=== PATIENT | male | born 1955 | race Caucasian/White ===

== ENCOUNTER 2016-05-20 12:12 | Observation (INO) ==
[2016-05-20] MEDS ORDERED: 0.9 % Sodium Chloride 1,000 ML IVC ONE (12:34)
[2016-05-20] MEDS ORDERED: Ondansetron 4 MG/2 ML VIAL IVP ONE (12:34)
[2016-05-20] MEDS ORDERED: Aspirin 325 MG TABLET PO ONE (12:39)
--- NOTE | 2016-05-20 12:44 | Emergency Department Note ---
Disposition Clinical Impression: Abdominal aneurysm, Hypokalemia, Hyponatremia, Total bilirubin, elevated Chest pain Qualifiers: Chest pain type: unspecified Qualified Code(s): R07.9 - Chest pain, unspecified Disposition: Admitted As Inpatient Condition: Good General Adult HPI - General Chief complaint: ED Abdominal Pain Stated complaint: chest pain, NVD Time Seen by Provider: 05/20/16 12:26 Source: patient Mode of arrival: ambulatory Limitations: no limitations Nursing Notes Reviewed: Yes Vital Signs Reviewed: Yes - History of Present Illness HPI Narrative: 61-year-old male history of CVA with right-sided weakness and aortic aneurysm presents for evaluation of chest pain nausea vomiting diarrhea. Patient states his symptoms of been constant for the past 4 days. Notes his chest pain is bilateral. No aggravating or alleviating factors. No history of coronary artery disease. Patient does have a history of aortic aneurysm which they are not sure if it is in his chest or his abdomen. Reports nausea vomiting and diarrhea. Patient has not been able to take his medications. Reports of fever. Cough. Shortness of breath. Pain Scale: 7 - Related Data Home Medications Medication Instructions Recorded Confirmed Aspirin [Lo-Dose Aspirin EC] 81 mg PO DAILY 05/20/16 05/20/16 Citalopram [CeleXA] 20 mg PO DAILY 05/20/16 05/20/16 Clopidogrel [Plavix] 75 mg PO DAILY 05/20/16 05/20/16 Fenofibrate Nanocrystallized 145 mg PO DAILY 05/20/16 05/20/16 [Tricor] Lisinopril [Zestril] 10 mg PO DAILY 05/20/16 05/20/16 Allergies Allergy/AdvReac Type Severity Reaction Status Date / Time No Known Allergies Allergy Verified 05/20/16 12:17 All systems ED: reviewed and negative except as stated. Constitutional: Reports: as per HPI, fever Eyes: Reports: as per HPI ENT ED: Reports: as per HPI Cardiovascular: Reports: as per HPI, chest pain Respiratory: Reports: as per HPI, cough, dyspnea Gastrointestinal: Reports: as per HPI, nausea, vomiting, diarrhea. Denies: abdominal pain Genitourinary: Reports: as per HPI Musculoskeletal: Reports: as per HPI Integumentary: Reports: as per HPI Neurological: Reports: as per HPI Past Medical History - Past Medical History Medical history: Reports: CVA, hypertension, other - Social History Smoking Status: Former smoker Smokeless Tobacco Status: No Alcohol use: Reports: none Drug use: Reports: marijuana Physical Exam - General Limitations: no limitations General appearance: alert, in no apparent distress - Head Head exam: normocephalic, normal inspection - Eye Eye exam: Present: normal appearance, EOMI - ENT ENT exam: normal exam, mucous membranes moist - Neck Neck exam: Present: normal inspection, trachea midline - Chest Chest inspection: Present: normal inspection, symmetric chest wall rise - Respiratory Respiratory exam: Present: wheezes (Basilar Rales). Absent: respiratory distress, prolonged expiratory phase - Cardiovascular Cardiovascular exam: Present: regular rate, normal rhythm - Abdominal Exam Abdominal exam: Present: soft, Non-Tender. Absent: tenderness, distention, guarding, rebound - Extremities Exam Extremities exam: Present: normal inspection. Absent: pedal edema - Back Exam Back exam: Present: normal inspection - Neurological Exam Neurological exam: Present: alert, oriented X3 - Expanded Neurological Exam Motor strength - LUE: 5/5 Motor strength - RUE: 4/5 Motor strength - LLE: 5/5 Motor strength - RLE: 4/5 Coma Scale Eye Opening: Spontaneous Coma Scale Motor Response: Obeys Commands Coma Scale Verbal Response: Oriented Coma Scale Total: 15 - Skin Skin exam: Present: warm, dry, intact, normal color Course Course Narrative: Patient presents with concerns of chest pain, nausea vomiting diarrhea. Patient notes pain is been for approximately past 4 days. Patient is a poor historian with history of CVA. Vision is not any anticoagulation per the family or the patient. Patient does have a known aortic aneurysm and were unaware of the exact location. Patient will get Cardiac evaluation with CT imaging of the aorta. - Reevaluation(s) Reevaluation #1: Patient seen and examined. Patient's resting comfortably. No acute distress. Patient is tolerating oral medications. No pain. Time: 15:04 Vital Signs Temperature 98.1 F 05/20/16 12:17 Pulse Rate 97 05/20/16 12:17 Respiratory Rate 16 05/20/16 12:17 Blood Pressure 141/91 05/20/16 12:17 O2 Sat by Pulse Oximetry 95 05/20/16 12:17 Temperature 97.8 F 05/20/16 16:38 Pulse Rate 79 05/20/16 16:38 Respiratory Rate 17 05/20/16 16:38 Blood Pressure 132/74 05/20/16 16:38 O2 Sat by Pulse Oximetry 92 L 05/20/16 16:38 Oxygen Delivery Oxygen Delivery Nasal Cannula Medical Decision Making - MDM Narrative Medical decision making narrative: 61-year-old gentleman history of CVA in the past with residual right-sided weakness and slurred speech presents for evaluation of chest pain, nausea vomiting and diarrhea. Patient notes that the symptoms started approximately 4 days ago. Associate with a cough. Low-grade fevers. Patient's initial exam was concerning for aortic aneurysm as he does have a history of an aneurysm was unsure of the location. Patient had a CT a of the chest abdomen and pelvis concerning for aneurysm. Patient aneurysm is noted to be infrarenal and has somewhat interval increase in size from 4.7-5.2 in the past 3 years. Patient does state that he follows with vascular here at [place]. Looking back at the medical records, the patient does not appear to have a recent cardiac evaluation. Patient was given aspirin as well as pain control and Zofran. Patient's tolerated oral medications which included potassium supplementation. Patient's CT does show evidence of possible bronchitis but no focal infiltrate. Patient will be offered admission for further evaluation of cardiac etiology. Also will need evaluation of aneurysm in the near future. Do not believe that this is the cause of the patient's pain as his abdomen is soft and is not had any abdominal discomfort. - Lab Data Lab results reviewed: Yes I reviewed the patient's lab results. Result diagrams: 05/20/16 12:47 05/20/16 12:47 Lab Results 05/20/16 05/20/16 05/20/16 Range/Units 12:47 12:47 12:47 WBC 10.5 (4.3-11.1) K/mcL RBC 5.03 (4.19-5.50) M/mcL Hgb 15.9 (12.9-16.9) g/dL Hct 43.0 (37.5-50.1) % MCV 85.5 (83.0-100.0) fL MCH 31.6 (28.0-33.3) pg MCHC 37.0 H (31.6-35.5) g/dL RDW 12.5 (11.5-14.5) % Plt Count 176 (140-400) K/mcL MPV 9.5 (9.4-12.4) fL Seg Neutrophils % 65.0 % Band Neutrophils % 3.0 (0-4) % Lymphocytes % 24.0 % Monocytes % 7.0 % Eosinophils % 1.0 % Neutrophils # 7.1 (1.6-8.9) K/mcL Lymphocytes # 2.5 (0.6-4.6) K/mcL Monocytes # 0.7 (0.0-1.3) K/mcL Eosinophils # 0.1 (0.0-0.6) K/mcL Platelet Estimate Normal (Normal) Sodium 129 L (136-145) mEq/L Potassium 2.9 L (3.5-4.5) mEq/L Chloride 95 L (98-109) mEq/L Carbon Dioxide 22 (19-29) mEq/L BUN 21 (8-26) mg/dL Creatinine 0.86 (0.72-1.25) mg/dL Est GFR ( Amer) > 60 (> 60) Est GFR (Non-Af Amer) > 60 (> 60) BUN/Creatinine Ratio 24 (6-26) Glucose 200 H (70-99) mg/dL Calculated Osmolality 277 L (280-300) Lactic Acid 1.6 (0.5-2.2) mmol/L Calcium 8.7 (8.6-10.8) mg/dL Magnesium (1.6-2.6) mg/dL Total Bilirubin 1.8 H (0.2-1.2) mg/dL Direct Bilirubin 0.5 (0.0-0.5) mg/dL Indirect Bilirubin 1.3 H (0.0-1.2) mg/dL AST 83 H (5-34) Units/L ALT 57 H (0-55) Units/L Alkaline Phosphatase 77 (38-126) Units/L Troponin I (0-0.03) ng/mL Serum Total Protein 7.7 (6.0-8.3) g/dL Albumin 3.4 L (3.5-5.0) g/dL Globulin 4.3 H (2.4-3.5) g/dL Albumin/Globulin Ratio 0.8 L (1.1-2.2) Lipase 78 (8-78) Units/L Urine Color (Yellow) Urine Clarity (Clear) Urine pH (5.0-8.0) pH Units Ur Specific Beeson (1.010-1.025) Urine Protein (Neg-Trace) mg/dL Urine Glucose (UA) (Normal) mg/dL Urine Ketones (Negative) mg/dL Urine Blood (Negative) Urine Nitrite (Negative) Urine Bilirubin (Negative) Urine Urobilinogen (Normal) mg/dL Ur Leukocyte Esterase (Negative) Urine Microscopic RBC (0-3) per hpf Urine Microscopic WBC (0-3) per hpf Ur Squamous Epith Cells (None-Few) per lpf Urine Bacteria (None-Few) per hpf Hyaline Casts (None-Few) per lpf Ur Culture Indicated? (NO) 05/20/16 05/20/16 05/20/16 Range/Units 12:47 12:47 15:10 WBC (4.3-11.1) K/mcL RBC (4.19-5.50) M/mcL Hgb (12.9-16.9) g/dL Hct (37.5-50.1) % MCV (83.0-100.0) fL MCH (28.0-33.3) pg MCHC (31.6-35.5) g/dL RDW (11.5-14.5) % Plt Count (140-400) K/mcL MPV (9.4-12.4) fL Seg Neutrophils % % Band Neutrophils % (0-4) % Lymphocytes % % Monocytes % % Eosinophils % % Neutrophils # (1.6-8.9) K/mcL Lymphocytes # (0.6-4.6) K/mcL Monocytes # (0.0-1.3) K/mcL Eosinophils # (0.0-0.6) K/mcL Platelet Estimate (Normal) Sodium (136-145) mEq/L Potassium (3.5-4.5) mEq/L Chloride (98-109) mEq/L Carbon Dioxide (19-29) mEq/L BUN (8-26) mg/dL Creatinine (0.72-1.25) mg/dL Est GFR ( Amer) (> 60) Est GFR (Non-Af Amer) (> 60) BUN/Creatinine Ratio (6-26) Glucose (70-99) mg/dL Calculated Osmolality (280-300) Lactic Acid (0.5-2.2) mmol/L Calcium (8.6-10.8) mg/dL Magnesium 1.9 (1.6-2.6) mg/dL Total Bilirubin (0.2-1.2) mg/dL Direct Bilirubin (0.0-0.5) mg/dL Indirect Bilirubin (0.0-1.2) mg/dL AST (5-34) Units/L ALT (0-55) Units/L Alkaline Phosphatase (38-126) Units/L Troponin I 0.02 (0-0.03) ng/mL Serum Total Protein (6.0-8.3) g/dL Albumin (3.5-5.0) g/dL Globulin (2.4-3.5) g/dL Albumin/Globulin Ratio (1.1-2.2) Lipase (8-78) Units/L Urine Color Yellow (Yellow) Urine Clarity Clear (Clear) Urine pH 6.0 (5.0-8.0) pH Units Ur Specific Beeson > 1.030 H (1.010-1.025) Urine Protein >=300 H (Neg-Trace) mg/dL Urine Glucose (UA) Normal (Normal) mg/dL Urine Ketones Negative (Negative) mg/dL Urine Blood Trace H (Negative) Urine Nitrite Negative (Negative) Urine Bilirubin Negative (Negative) Urine Urobilinogen Normal (Normal) mg/dL Ur Leukocyte Esterase Negative (Negative) Urine Microscopic RBC 5-15 H (0-3) per hpf Urine Microscopic WBC 0-3 (0-3) per hpf Ur Squamous Epith Cells Many H (None-Few) per lpf Urine Bacteria None Seen (None-Few) per hpf Hyaline Casts None Seen (None-Few) per lpf Ur Culture Indicated? NO (NO) - Radiology Data Radiology results reviewed: Yes I reviewed the patient's radiology results. Chest CTA 05/20/16 12:41 IMPRESSION: 1. Mild thoracic aortic atherosclerosis with no acute abnormality. Abdominal aortic atherosclerosis with evidence of multifocal plaque ulceration. A 5.2 cm infrarenal abdominal aortic aneurysm increased in size since the prior 2013 exam where it measured 4.7 cm. There is no acute aortic dissection or periaortic hemorrhage. 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 2. No acute pulmonary emboli. 3. Acute versus chronic bronchitis. No acute pneumonia. 4. No acute abdominal/pelvic process. Hepatic steatosis. D/ / 05/20/2016 14:42:41 Bill Falcon MD / karley Interpreting Provider: Bill Falcon MD - EKG Data EKG #1 EKG shows normal: sinus rhythm Rate: normal Rhythm: NSR Patton/QRS: left axis deviation ST segment elevation in: aVR T wave inversions noted in: v2, v3, v4 When compared to previous EKG there are: changes noted (2008 prior to CVA ) S.B.ASheri - Caroline Situation: Demographics Background: Presenting Complaint Assessment: Vital Signs, Course and respsone to treatment, Exam Concerns, Patient/Family Expectation, Pertinant Lab Results Recommendation: Barrier(s) to disposition, Recommendation based on pending studies, treatments, or consults SEneida Report Given to: Dr. Han Velazquez Repor Time: 15:38 Attestation Statement - Attestation Attestation: Patient was seen with resident physician. I reviewed the history, physical, assessment and plan, and agree with the findings. I also personally evaluated this patient and had [id number] time with this patient. 61-year-old male status post stroke 3 presents to the emergency department with chest pain for the last 4-5 days. Says pain continuous. Patient has a difficult time communicating because of his strokes but seems to involve both the right and left side of his chest. Patient family acknowledges that he has had some kind of aneurysm but not sure if it is in his stomach or his chest. Patient denies nausea vomiting or abdominal pain. On examination lungs are clear. Heart is regular rhythm and rate. Abdomen is soft and nontender with positive bowel sounds. Extremities unremarkable. Neurologically the patient is alert and oriented but has difficulty communicating secondary to his prior strokes. We will do workup for chest pain including PE and aneurysm of both the chest and the abdomen. We will likely admit to the hospital for chest pain. He does have some changes on his EKG which are concerning not so much for STEMI, but that they may represent cardiac strain. They are change from an old EKG but the most recent one was 2008 prior to his strokes. Unfortunately this gives us limited information. Workup did not elicit a specific cause for the patient's pain. We will admit to the hospital for further evaluation and treatment. Hospitalist was notified. I agree with the resident physician assessment and plan.
[2016-05-20 12:55] LABS: Hemoglobin 15.9 g/dL (12.9-16.9); Mean Corpuscular Hemoglobin 31.6 pg (28.0-33.3); Mean Corpuscular Volume 85.5 fL (83.0-100.0); Mean Platelet Volume 9.5 fL (9.4-12.4); Platelet Count 176 K/mcL (140-400); Red Blood Count 5.03 M/mcL (4.19-5.50); Red Cell Distribution Width 12.5 % (11.5-14.5)
[2016-05-20 13:08] LABS: Alanine Aminotransferase 57 Units/L (0-55); Albumin 3.4 g/dL (3.5-5.0); Albumin/Globulin Ratio 0.8 (1.1-2.2); Alkaline Phosphatase 77 Units/L (38-126); Aspartate Amino Transferase 83 Units/L (5-34); BUN/Creatinine Ratio 24 (6-26); Bilirubin,Direct 0.5 mg/dL (0.0-0.5); Bilirubin,Indirect 1.3 mg/dL (0.0-1.2); Bilirubin,Total 1.8 mg/dL (0.2-1.2); Blood Urea Nitrogen 21 mg/dL (8-26); Calcium 8.7 mg/dL (8.6-10.8); Carbon Dioxide 22 mEq/L (19-29); Chloride 95 mEq/L (98-109); Globulin 4.3 g/dL (2.4-3.5); Glucose 200 mg/dL (70-99); Lipase 78 Units/L (8-78); Osmolality,Calculated 277 (280-300); Potassium 2.9 mEq/L (3.5-4.5); Sodium 129 mEq/L (136-145); Total Protein 7.7 g/dL (6.0-8.3); eGFR For African Americans > 60 (> 60); eGFR For Non-African Americans > 60 (> 60)
[2016-05-20 13:12] LABS: Eosinophils # 0.1 K/mcL (0.0-0.6); Lymphocytes # 2.5 K/mcL (0.6-4.6); Monocytes # 0.7 K/mcL (0.0-1.3); Neutrophils # 7.1 K/mcL (1.6-8.9)
[2016-05-20 13:13] LABS: Platelet Estimate Normal (Normal)
[2016-05-20] MEDS ORDERED: Ipratropium/Albuterol Neb 3 ML IH ONE (15:01)
[2016-05-20 15:17] LABS: Bilirubin,Urine Negative (Negative); Blood,Urine Trace (Negative); Clarity,Urine Clear (Clear); Color,Urine Yellow (Yellow); Glucose,Urine (UA) Normal (Normal); Ketones,Urine Negative (Negative); Leukocyte Esterase,Urine Negative (Negative); Nitrite,Urine Negative (Negative); Protein,Urine >=300 mg/dL (Neg-Trace); Specific Gravity,Urine > 1.030 (1.010-1.025); Urobilinogen,Urine Normal (Normal)
[2016-05-20 15:19] LABS: Bacteria,Urine None Seen per hpf (None-Few); Hyaline Casts,Urine None Seen per lpf (None-Few); Squamous Epithelial Cell,Urine Many per lpf (None-Few); WBC,Urine 0-3 per hpf (0-3)
[2016-05-20] MEDS ORDERED: Naloxone 0.4 MG/ML INJ IVP PRN (17:12)
[2016-05-20] MEDS ORDERED: Ibuprofen 400 MG TABLET PO PRN (17:21)
[2016-05-20] MEDS ORDERED: Ondansetron 4 MG/2 ML VIAL IVP PRN (17:21)
[2016-05-20] MEDS ORDERED: Acetaminophen 325 MG TABLET PO PRN (17:21)
[2016-05-20] MEDS ORDERED: 0.9 % Sodium Chloride 1,000 ML IVC SCH (17:30)
--- NOTE | 2016-05-20 17:47 | Internal Med History&Physical ---
Date of Encounter: 05/20/16 Time of Encounter: 16:20 Assessment and Plan (1) Chest pain Current visit: Yes Status: Acute Pt c/o sohail upper chest pain x 4 days. Describes as dull, without radiation. EKG NSR, rate 91. ND int 142ms, QRS 98ms, QT/QTc 398/446ms. Pt denies cp currently. Pain is not reproduceable to palpation. Denies recent cough, cold, congestion, SOB, LARSON, or dyspnea. Initial troponin 0.02ng/ml. Pt has been non-adherent to medication regimen for at least a year and has not taken Lisinopril, Plavix, or Tricor, due to cost. Continuous cardiac monitoring continuous pulse oximetry Repeat troponin x 2 Started Beta savanah Restarted fenofibrate- Qualifiers: Chest pain type: other chest pain Qualified Code(s): R07.89 - Other chest pain; R07.8 - Other chest pain (2) Gastritis Current visit: Yes Status: Acute Pt reports no n/v/d since yesterday and states that he feels better. Pt oral mucosa appears to be dry and pt states that he has not eaten x 3 days. Clear liquid diet Gall bladder ultrasound Hepatitis panel Qualifiers: Gastritis type: other gastritis Chronicity: acute Gastritis bleeding: without bleeding Qualified Code(s): K29.00 - Acute gastritis without bleeding (3) Hypokalemia Current visit: Yes Status: Acute Pt with n/v/d x 3 days. Oral mucosa appears to be dry. K rider 40meq IV for replacement Chemistry in a.m. (4) Hyponatremia Current visit: Yes Status: Acute Pt received 1 liter bolus 0.9NS in the ER 0.9NS @ 70ml/hour Chemistry redraw at 2200 and 0400 to reevaluate Na+ Internal Medicine - H&P: HPI Chief complaint: N/v/d x 3 days, chest pain Admitted From: Home Plans for Post Hospital Care: Transfer Inp Rehab Fac History of present illness: Mr. Paulson is a 61 year old male with h/o AAA, HTN, Hyperlipidemia, CVA with R sided weakness/deficit, and depression who reports 3 day h/o n/v/d and sohail chest pain. Pt denies sob, diaphoresis, or radiation of pain. States that he has a close friend who has been around him who had the same symptoms. Pt denies any other recent illness, cough, congestion. Reports fever at home. Reports low abd cramping with diarrhea and the sohail chest pain x 4 days. States that he has not eaten for 3 days. Past Med Surg Social Fam HX - Past Medical History Medical history: aortic aneurysm, CVA, hyperlipidemia, hypertension, other Psychiatric history: depression - Social History Smoking Status: Former smoker Smokeless Tobacco Status: No Alcohol use: none Drug use: marijuana - Family History Mother History Unknown: Yes Father History Unknown: Yes Internal Medicine - H&P: Meds Aspirin [Lo-Dose Aspirin EC] 81 mg PO DAILY 05/20/16 [History] Citalopram [CeleXA] 20 mg PO DAILY 05/20/16 [History] Fenofibrate Nanocrystallized [Tricor] 145 mg PO DAILY 05/20/16 [History] RX: Clopidogrel [Plavix] 75 mg PO DAILY 05/20/16 [History] RX: Lisinopril [Zestril] 10 mg PO DAILY 05/20/16 [History] Allergies No Known Allergies Allergy (Verified 05/20/16 12:17) All Systems PM: A 10-system review of systems was performed and is negative for pertinent findings except as documented above in the HPI. - Constitutional Constitutional: fever(s), no excessive sweating, no night sweats - EENT Eyes: no change in vision, no discharge, no pain, no photophobia - Respiratory Respiratory: no cough, no hemoptysis, no dyspnea on exertion, no pain on inspiration, no chest congestion - Gastrointestinal Gastrointestinal: abdominal pain, cramping, diarrhea, nausea, vomiting - Musculoskeletal Musculoskeletal ROS IM: no muscle cramps, no muscle weakness - Constitutional Vitals: Temp Pulse Resp BP Pulse Ox 97.8 F 79 17 132/74 92 L 05/20/16 16:38 05/20/16 16:38 05/20/16 16:38 05/20/16 16:38 05/20/16 16:38 General appearance: Present: A&O X 3, pleasant, no acute distress - Head Head exam: Present: normal inspection - Neck Neck exam general surgery: Present: normal inspection, trachea midline. Absent : tenderness - Respiratory Respiratory exam: Present: wheezes. Absent: chest wall tenderness, decreased breath sounds, respiratory distress, tachypnea Additional comments: Faint expiratory wheezing heard in L post base. - Cardiovascular Cardiovascular exam: Present: RRR, +S1, +S2. Absent: JVD, tachycardia - Expanded Cardiovascular Exam Peripheral pulses: 2+: Radial (L), Radial (R), Dorsalis Pedis (L) PM, Dorsalis Pedis (R) PM - GI/Abdominal GI/Abdominal exam: Present: distended, firm, hyperactive bowel sounds. Absent: tenderness - Neurological Exam Neurological exam: Present: alert, oriented X3 Internal Med - H&P Results - Labs CBC & Chem 7: 05/20/16 12:47 05/20/16 12:47
[2016-05-20 22:35] LABS: BUN/Creatinine Ratio 20 (6-26); Blood Urea Nitrogen 15 mg/dL (8-26); Calcium 8.2 mg/dL (8.6-10.8); Carbon Dioxide 28 mEq/L (19-29); Chloride 98 mEq/L (98-109); Glucose 130 mg/dL (70-99); Osmolality,Calculated 285 (280-300); Potassium 3.1 mEq/L (3.5-4.5); Sodium 136 mEq/L (136-145); eGFR For African Americans > 60 (> 60); eGFR For Non-African Americans > 60 (> 60)
[2016-05-21 01:04] LABS: Basophils % 0.3 %; Eosinophils # 0.1 K/mcL (0.0-0.6); Eosinophils % 1.1 %; Hematocrit 36.4 % (37.5-50.1); Immature Granulocytes % 0.3 % (0-4); Immature Platelets 3.1 % (1.1-6.1); Lymphocytes # 1.7 K/mcL (0.6-4.6); Mean Corpuscular HGB Conc 36.8 g/dL (31.6-35.5); Mean Corpuscular Hemoglobin 31.5 pg (28.0-33.3); Mean Corpuscular Volume 85.6 fL (83.0-100.0); Mean Platelet Volume 9.5 fL (9.4-12.4); Monocytes # 0.6 K/mcL (0.0-1.3); Monocytes % 9.4 %; Neutrophils # 3.9 K/mcL (1.6-8.9); Platelet Count 157 K/mcL (140-400); Red Blood Count 4.25 M/mcL (4.19-5.50); Red Cell Distribution Width 12.4 % (11.5-14.5); Segmented Neutrophils % 61.9 %
[2016-05-21 01:08] LABS: INR 1.2; Prothrombin Time 13.5 Seconds (9.4-12.1)
[2016-05-21 01:16] LABS: Hemoglobin A1C 7.4 %
[2016-05-21 01:17] LABS: Alanine Aminotransferase 46 Units/L (0-55); Albumin 2.9 g/dL (3.5-5.0); Albumin/Globulin Ratio 0.8 (1.1-2.2); Alkaline Phosphatase 65 Units/L (38-126); Aspartate Amino Transferase 65 Units/L (5-34); BUN/Creatinine Ratio 18 (6-26); Bilirubin,Total 1.2 mg/dL (0.2-1.2); Blood Urea Nitrogen 13 mg/dL (8-26); Calcium 8.1 mg/dL (8.6-10.8); Carbon Dioxide 23 mEq/L (19-29); Chloride 101 mEq/L (98-109); Globulin 3.5 g/dL (2.4-3.5); Glucose 127 mg/dL (70-99); Osmolality,Calculated 280 (280-300); Potassium 3.5 mEq/L (3.5-4.5); Sodium 134 mEq/L (136-145); Total Protein 6.4 g/dL (6.0-8.3); eGFR For African Americans > 60 (> 60); eGFR For Non-African Americans > 60 (> 60)
[2016-05-21 01:18] LABS: Albumin 2.8 g/dL (3.5-5.0); Albumin/Globulin Ratio 0.8 (1.1-2.2); Bilirubin,Direct 0.4 mg/dL (0.0-0.5); Bilirubin,Indirect 0.8 mg/dL (0.0-1.2); Bilirubin,Total 1.2 mg/dL (0.2-1.2); Globulin 3.7 g/dL (2.4-3.5); Total Protein 6.5 g/dL (6.0-8.3)
[2016-05-21 01:23] LABS: Hemoglobin 13.4 g/dL (12.9-16.9); Large Platelets Present (Not Present); Platelet Estimate Normal (Normal)
--- NOTE | 2016-05-21 13:12 | Electrocardiograph Report ---
[facility] Test Date: 2016-05-20 Pat Name: Idris Paulson Department: 103 Room: 3B55 Gender: M [employer]: MSC : 1955 Requested By: Jose Crespo Order Number: [id number] Reading MD: Pete Mendoza MD Measurements Intervals [place] Rate: 91 P: 62 GA: 142 QRS: -26 QRSD: 98 T: 17 QT: 398 QTc: 446 Interpretive Statements SINUS RHYTHM BORDERLINE LEFT AXIS DEVIATION POSSIBLE ANTEROLATERAL ISCHEMIA Electronically Signed On 05-21-16 13:11:54 EST by Pete Mendoza MD
[2016-05-21] MEDS: Fenofibrate 54 MG TABLET PO SCH (13:59)
[2016-05-21] MEDS: Aspirin Enteric Coated 81 MG Tablet PO SCH (13:59)
--- NOTE | 2016-05-21 16:24 | Internal Med Progress Note ---
Date of Encounter: 05/21/16 Time of Encounter: 08:00 - Assessment and plan (1) Chest pain Current Visit: Yes Status: Acute Assessment and plan: atypical secondary to cough and chest wall Qualifiers: Chest pain type: chest pain on breathing Qualified Code(s): R07.1 - Chest pain on breathing (2) Abdominal aneurysm Current Visit: Yes Status: Acute Assessment and plan: increasing in size compare with two years ago, pt does not need inmediate repair but needs to follow up with Dr Leija who was consulted (3) Bronchitis Current Visit: Yes Status: Acute Assessment and plan: steroids med nebs (4) Gastritis Current Visit: Yes Status: Chronic Assessment and plan: On PPI Qualifiers: Gastritis type: other gastritis Chronicity: acute Gastritis bleeding: without bleeding Qualified Code(s): K29.00 - Acute gastritis without bleeding - Time Spent With Patient 25 - 35 minutes - Subjective Interval history: Pt c/o productive cough, sob on exertion - Constitutional Vitals: Temp Pulse Resp BP Pulse Ox 98.2 F 64 17 129/79 96 05/21/16 14:54 05/21/16 14:54 05/21/16 14:54 05/21/16 14:54 05/21/16 14:54 General appearance: Present: A&O X 3, pleasant, no acute distress - Respiratory Additional comments: scattered wheezes, - Cardiovascular Cardiovascular exam: Present: RRR, +S1, +S2 - GI/Abdominal GI/Abdominal exam: Present: normal bowel sounds, soft - Extremities Exam Extremities exam: Present: warm, radial pulses palpable and symetrical - Neurological Exam Neurological exam: Present: CN II-XII intact Internal Medicine: Result - Labs CBC & Chem 7: 05/21/16 00:54 05/21/16 00:54 Labs: Short CBC 05/21/16 Range/Units 00:54 WBC 6.3 (4.3-11.1) K/mcL Hgb 13.4 D (12.9-16.9) g/dL Hct 36.4 L (37.5-50.1) % Plt Count 157 (140-400) K/mcL Neutrophils # 3.9 (1.6-8.9) K/mcL BMP 05/20/16 05/21/16 22:18 00:54 Sodium 136 D 134 L Potassium 3.1 L 3.5 Chloride 98 101 Carbon Dioxide 28 23 BUN 15 13 Creatinine 0.76 0.71 L Glucose 130 H 127 H Calcium 8.2 L 8.1 L Cardiac Enzymes 05/20/16 05/21/16 Range/Units 18:45 00:54 Troponin I 0.02 0.01 (0-0.03) ng/mL Liver Function 05/21/16 05/21/16 Range/Units 00:54 00:54 Total Bilirubin 1.2 1.2 (0.2-1.2) mg/dL Direct Bilirubin 0.4 (0.0-0.5) mg/dL AST 65 H 66 H (5-34) Units/L ALT 46 46 (0-55) Units/L Alkaline Phosphatase 65 65 (38-126) Units/L Albumin 2.9 L 2.8 L (3.5-5.0) g/dL - ABG Interpretation ABG results: PT/INR, D-dimer PT 13.5 Seconds (9.4-12.1) H 05/21/16 00:54 - Impressions Impressions Liver Ultrasound 05/21/16 10:55 IMPRESSION: Liver is increased in echogenicity which can be seen in fatty change. Common bile duct is slightly prominent measuring up to 0.9 cm however no intrahepatic biliary dilatation. Findings likely related to previous cholecystectomy. Abdominal aortic aneurysm measures up to 5.2 x 5.4 cm. Recommend follow-up in 3-6 months. D/ / Elis Dickens MD / Elis Dickens MD Interpreting Provider: Elis Dickens MD Consult Discharge Plan - Plan Referrals: Radha Newell MD [Primary Care Provider] - 05/30/16 10:45 am
--- NOTE | 2016-05-21 16:42 | Vascular/Endovasc Consult Note ---
Date of Encounter: 05/21/16 Time of Encounter: 16:30 Assessment and Plan (1) Abdominal aneurysm Status: Chronic The pathophysiology and natural history of abdominal aortic aneurysms was discussed with the patient and all questions were answered. The patient has an asymptomatic 5.2cm AAA. He was unaware of the aneurysm. He CT reveals acceptable anatomy for endograft repair of his aneurysm. The patient will follow-up in vascular clinic after his acute illness has resolved for further evaluation. He was instructed to seek immediate medical attention for signs or symptoms of acute onset abdominal, flank or back pain. (2) Essential hypertension Status: Chronic The patient was counseled regarding atherosclerotic risk factor reduction. - History of Present Illness Consult date: 05/21/16 Requesting physician: Kalen Rajput Consult reason: Abdominal aortic aneurysm Chief complaint: Abdominal aortic aneurysm History of present illness: Mr. Paulson is a 61 year old male who presented to [facility] with complaints of chest pain and gastrointestinal illness. As part of his evaluation, her underwent a CT scan and was found to have a large abdominal aortic aneurysm. Vascular surgery was then consulted for further evaluation. The patient denies any new onset abdominal, flank or back pain. He was unaware of his aneurysm. 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 He is able to walk but has diminished right upper extremity motor function. At the time of evaluation he denies chest pain or shortness of breath. Past Med Surg Social Fam HX - Past Medical History Medical history: aortic aneurysm, CVA, hyperlipidemia, hypertension, other Psychiatric history: depression - Social History Smoking Status: Former smoker Smokeless Tobacco Status: No Alcohol use: none Drug use: marijuana - Family History Mother History Unknown: Yes Father History Unknown: Yes Medications and Allergies Aspirin [Lo-Dose Aspirin EC] 81 mg PO DAILY 05/20/16 [History] Citalopram [CeleXA] 20 mg PO DAILY 05/20/16 [History] Clopidogrel [Plavix] 75 mg PO DAILY 05/20/16 [History] Fenofibrate Nanocrystallized [Tricor] 145 mg PO DAILY 05/20/16 [History] Lisinopril [Zestril] 10 mg PO DAILY 05/20/16 [History] GuaiFENesin ER [Mucinex] 600 mg PO BID PRN 14 Days 05/23/16 [Rx] Metformin [Glucophage] 500 mg PO BIDWM #60 tablet 05/23/16 [Rx] Allergies No Known Allergies Allergy (Verified 05/20/16 12:17) All Systems Review: A 10-system review of systems was performed and is negative for pertinent findings except as documented above in the HPI. - Constitutional Constitutional: no chills, no fever(s), no headache(s) - Cardiovascular Cardiovascular: as per HPI - Vascular Vascular: no claudication - Gastrointestinal Gastrointestinal: no abdominal pain Exam Vital Signs, Last 4 Hours Temp Pulse Resp BP Pulse Ox 05/21/16 14:54 98.2 F 64 17 129/79 96 General: Present: Conversant, No Apparent Distress HEENT: Present: Atraumatic, Normocephaly, Trachea midline, Pupils equal Neck: Absent: JVD, Left Carotid bruit, Right Carotid bruit Cardiac: Present: Reg Rate and Rhythm, Normal S1 and S2, No Murmur Lungs: Present: Normal Breath Sounds, No Wheeze, Rales, Rhonchi Neuro: Present: Alert and responsive, Sensory nerves grossly intact, Other ( right sided weakness and speech deficit) Abdomen: Present: Soft, Non-tender, Other (abdominal aortic aneurysm palpable) Vascular: Present: Normal capillary refill, Pulse, normal. Absent: Cyanosis, Edema Consult Discharge Plan - Plan Instructions: Chest Pain (DC), Gastritis (DC), Hypokalemia (DC), Abdominal Aortic Aneurysm (DC), Diabetes Mellitus Type 2 in Adults (DC), Acute Bronchitis (DC), Chronic Hypertension (DC) Referrals: Radha Newell MD [Primary Care Provider] - 05/30/16 10:45 am Adalid North MD [Partnered Physician] - 06/06/16 1:00 pm Prescriptions: GuaiFENesin ER [Mucinex] 600 mg PO BID PRN 14 Days PRN Reason: Congestion Metformin [Glucophage] 500 mg PO BIDWM #60 tablet
[2016-05-21] MEDS: Doxycycline 100 MG in 0.9 % Sodium Chloride Mini Bag 100 ML IVPB SCH (18:06)
[2016-05-21] MEDS: predniSONE 10 MG TABLET PO SCH (18:07)
[2016-05-21] MEDS: Nitroglycerin 1 INCH/GM PACKET TP SCH (18:07)
[2016-05-21] MEDS: Ipratropium/Albuterol Neb 3 ML IH SCH (20:04)
[2016-05-21] MEDS: *HR* HYDROcodone/Acet 5/325 mg TABLET PO PRN (20:05)
[2016-05-21] MEDS: Fluticasone Propionate Nasal 50 MCG/SPRAY BOTTLE NS SCH (23:46)
[2016-05-22] MEDS: Ipratropium/Albuterol Neb 3 ML IH SCH ×7 (00:05→23:49)
[2016-05-22] MEDS: *HR* HYDROcodone/Acet 5/325 mg TABLET PO PRN ×2 (01:55→06:10)
[2016-05-22] MEDS ORDERED: Nitroglycerin 1 INCH/GM PACKET TP SCH (06:00)
[2016-05-22] MEDS: Doxycycline 100 MG in 0.9 % Sodium Chloride Mini Bag 100 ML IVPB SCH ×2 (06:15→17:44)
[2016-05-22] MEDS: Nitroglycerin 1 INCH/GM PACKET TP SCH ×2 (06:16→17:33)
[2016-05-22 08:30] LABS: Hepatitis B Surface Antigen Nonreactive (Nonreactive)
[2016-05-22] MEDS: Aspirin Enteric Coated 81 MG Tablet PO SCH (09:50)
[2016-05-22] MEDS: predniSONE 10 MG TABLET PO SCH (09:50)
[2016-05-22] MEDS: Fenofibrate 54 MG TABLET PO SCH (09:50)
[2016-05-22] MEDS: Fluticasone Propionate Nasal 50 MCG/SPRAY BOTTLE NS SCH ×2 (09:51→21:36)
--- NOTE | 2016-05-22 11:57 | Cardiology Consult Note ---
Date of Encounter: 05/22/16 Time of Encounter: 11:57 Assessment and Plan (1) Chest pain Current Visit: Yes Status: Acute Pt c/o sohail upper chest pain without radiation. Troponins negaitve x 3. Has been chest pain free since admission. Cardiology consulted for EKG changes. Anterolateral T wave depressions noted on EKG 05/20/16. Improved on EKG 05/22/16. May have been related his gastritis and electrolyte abnormalities--K was 3.1 on admission. Risk factors for CAD include DM, HTN, HLD. No prior cardiac work-up. Recommend checking an echo, as he has no prior. Evaluate structure and function. Will discuss with Dr. Huber to determine if stress test is warranted. If so, will do tomorrow AM. Qualifiers: Chest pain type: chest pain on breathing Qualified Code(s): R07.1 - Chest pain on breathing (2) Abdominal aneurysm Current Visit: Yes Status: Acute Asymptomatic 5.2cm AAA. Seen by vascular who has scheduled outpatient follow- up. Discussion w patient/family: The assessment and plan as outlined above was discussed with the patient and/or family members who expressed understanding and agreement. All questions were answered. Thank you for involving us in the care of your patient. Please call with any questions. I will discuss all the above with Dr. Huber and make changes as necessary. History of Present Illness Consult date: 05/22/16 Requesting physician: Kalen Rajput Consult reason: Chest pain, EKG changes Chief complaint: chest pain, n/v/d History of present illness: Mr. Paulson is a 61 year old male h/o of CVA--residual effects and right sided weakness, AAA, HTN, Hyperlipidemia, and depression who reports 3 day h/o n/v/d and chest pain noted on right and left side associated with cough. He reports he was short of breath. He denies any chest pain since admission. Troponins negative x 3. Cardiology was consulted for noted EKG changes. Deficits from CVA make communication difficult. No hx of CAD. HGBA1C has resulted--elevated 7.4. He has been found to have a AAA of increasing size--5.2x5.4cm. Vascular was consulted, who recommend outpt follow-up. Past Med Surg Social Fam HX - Past Medical History Medical history: aortic aneurysm, CVA, hyperlipidemia, hypertension, other Psychiatric history: depression - Social History Smoking Status: Former smoker Smokeless Tobacco Status: No Alcohol use: none Drug use: marijuana - Family History Mother History Unknown: Yes Father History Unknown: Yes Medications and Allergies Aspirin [Lo-Dose Aspirin EC] 81 mg PO DAILY 05/20/16 [History] Citalopram [CeleXA] 20 mg PO DAILY 05/20/16 [History] Clopidogrel [Plavix] 75 mg PO DAILY 05/20/16 [History] Fenofibrate Nanocrystallized [Tricor] 145 mg PO DAILY 05/20/16 [History] Lisinopril [Zestril] 10 mg PO DAILY 05/20/16 [History] Allergies No Known Allergies Allergy (Verified 05/20/16 12:17) All Systems Review: A 10-system review of systems was performed and is negative for pertinent findings except as documented above in the HPI. - Cardiovascular Cardiovascular: as per HPI, chest pain at rest, dyspnea on exertion - Respiratory Respiratory: cough, dyspnea - Gastrointestinal Gastrointestinal: abdominal pain, diarrhea, nausea Physical Examination Vital Signs Temp Pulse Resp BP Pulse Ox 05/22/16 07:15 98.2 F 66 16 116/51 98 05/22/16 00:14 97.7 F 76 16 109/70 95 05/22/16 00:05 18 94 L 05/21/16 20:04 16 97 05/21/16 14:54 98.2 F 64 17 129/79 96 Intake and Output 05/21/16 05/22/16 05/22/16 23:59 07:59 15:59 Intake Total 100 / 100 840 / 840 Balance 100 / 100 840 / 840 Intake: IV Fluids 100 / 100 Doxycycline 100 MG In 0.9 100 / 100 % Sodium Chloride (Mini- Bag +) 100 ML @ 100 mls/ hr IVPB Q12HR [facility] Rx#: [id number] Oral 840 / 840 Other: Meal Breakfast Percent of Meal Consumed 100% Blood Glucose* 235 216 General: Conversant, No Apparent Distress, Other (difficulty conversing due to CVA) HEENT: Atraumatic, Normocephaly, Mucus Membranes Moist Neck: No JVD, Normal carotid pulses Cardiac: Reg Rate and Rhythm, Normal S1 and S2, No Murmur Lungs: Normal Breath Sounds, No Wheeze, Rales, Rhonchi Neuro: Alert and responsive, Other (deficits noted from CVA--right sided weakness.) Abdomen: Soft, Non-Tender Skin: No rashes noted on visualized skin Musculoskeletal: No Chest Wall Tenderness Extremities: No Clubbing, No Cyanosis, No Edema, Normal Pulses Results 05/21/16 00:54 05/21/16 00:54 Active Medications Acetaminophen (Tylenol) 650 mg PO Q6HR PRN PRN Reason: Mild Pain (1-3) Stop: 11/19/16 17:22 Acetaminophen/Hydrocodone Bitart ([place] 5-325 Mg) 1 tab PO Q4HR PRN PRN Reason: Moderate Pain (4-6) Stop: 11/19/16 17:22 Last Admin: 05/22/16 06:10 Dose: 1 tab Albuterol/Ipratropium (Duoneb) 3 ml IH [id number] JESENIA PRN Reason: Protocol Stop: 11/20/16 20:01 Last Admin: 05/22/16 10:48 Dose: 3 ml Aspirin (Aspirin Ec) 81 mg PO DAILY [facility] Stop: 11/20/16 09:01 Last Admin: 05/22/16 09:50 Dose: 81 mg Clopidogrel Bisulfate (Plavix) 75 mg PO DAILY [facility] Stop: 11/20/16 09:01 Last Admin: 05/22/16 09:51 Dose: 75 mg Fenofibrate (Tricor) 162 mg PO DAILY [facility] Stop: 11/20/16 09:01 Last Admin: 05/22/16 09:50 Dose: 162 mg Fluticasone Propionate (Flonase) 50 mcg NS BID J[facility]IA PRN Reason: Protocol Stop: 11/20/16 21:01 Last Admin: 05/22/16 09:51 Dose: 50 mcg Guaifenesin (Mucinex) 600 mg PO BID PRN PRN Reason: Congestion Stop: 11/20/16 16:24 Doxycycline Hyclate 100 mg/ (Sodium Chloride) 100 mls @ 100 mls/hr IVPB Q12HR [facility] Stop: 11/20/16 18:01 Last Admin: 05/22/16 06:15 Dose: 100 mls/hr Ibuprofen (Motrin) 400 mg PO Q6HR PRN PRN Reason: Mild Pain (1-3) Stop: 11/19/16 17:22 Lisinopril (Zestril) 10 mg PO DAILY [facility]IA PRN Reason: Protocol Stop: 11/20/16 09:01 Last Admin: 05/22/16 09:51 Dose: 10 mg Metoprolol Tartrate (Lopressor) 12.5 mg PO BID [facility] Stop: 11/19/16 21:01 Last Admin: 05/22/16 09:50 Dose: 12.5 mg Naloxone HCl (Narcan) 0.4 mg IVP Q2MIN PRN PRN Reason: Opioid Reversal Stop: 11/19/16 17:13 Nitroglycerin (Nitroglycerin) 1 inch TP Q6HNTG [facility] Stop: 11/20/16 16:27 Last Admin: 05/22/16 06:16 Dose: 1 inch Ondansetron HCl (Zofran) 4 mg IVP Q8HR PRN PRN Reason: Nausea And Vomiting Stop: 11/19/16 17:22 Prednisone (Prednisone) 30 mg PO BIDWM [facility] Stop: 11/20/16 17:01 Last Admin: 05/22/16 09:50 Dose: 30 mg - EKG Interpretation EKG results cardiology: personally reviewed (SR, on 05/20/16 EKG changes noted, depression in anterolateral leads--improved on EKG 05/22/16.), other (12 hour tele AVG HR 72, no significant pauses or arrhythmias.) Consult Discharge Plan - Plan Referrals: Radha Newell MD [Primary Care Provider] - 05/30/16 10:45 am
--- NOTE | 2016-05-22 16:15 | Internal Med Progress Note ---
Date of Encounter: 05/22/16 Time of Encounter: 10:00 - Assessment and plan (1) Chest pain Current Visit: Yes Status: Acute Assessment and plan: atypical secondary to cough and chest wall. However, there is EKG change on admission. Will follow echocardiogram. Cardiology consult appreciated. Qualifiers: Chest pain type: chest pain on breathing Qualified Code(s): R07.1 - Chest pain on breathing (2) Abdominal aneurysm Current Visit: Yes Status: Acute Assessment and plan: increasing in size compare with two years ago, pt does not need inmediate repair but needs to follow up with Dr Leija who was consulted. (3) Bronchitis Current Visit: Yes Status: Acute Assessment and plan: No wheezing. We will continue cough syrup. D/C Steroid (4) Hypokalemia Current Visit: Yes Status: Acute Assessment and plan: Improved. (5) Total bilirubin, elevated Current Visit: Yes Status: Acute Assessment and plan: Possibly due to nausea and vomiting. Get back to normal right. Liver enzyme also get down. Hepatitis B tested negative. (6) Gastritis Current Visit: Yes Status: Chronic Assessment and plan: On PPI. Improved Qualifiers: Gastritis type: other gastritis Chronicity: acute Gastritis bleeding: without bleeding Qualified Code(s): K29.00 - Acute gastritis without bleeding (7) DVT prophylaxis Current Visit: Yes Status: Acute Assessment and plan: EPCD - Time Spent With Patient 25 - 35 minutes - Subjective Interval history: Patient is a 61-year-old male admitted for chest pain. His past medical history is significant for aortic aneurysm, history of CVA with right-sided weakness, hyperlipidemia, and hypertension. Patient was seen and examined. He has no further chest pain, no shortness of breath, no nausea, no vomiting. 3 sets of troponin negative. However, his EKG shows T-wave inversion on V3 to V6. Repeated EKG shows inversion resolved. Cardiology consult saw patient and recommendation appreciated. We will check echo and possibly order stress test. - Constitutional Vitals: Temp Pulse Resp BP Pulse Ox 97.3 F L 65 16 119/76 98 05/22/16 15:21 05/22/16 15:21 05/22/16 15:21 05/22/16 15:21 05/22/16 15:21 General appearance: Present: A&O X 3, pleasant, no acute distress - Head Head exam: Present: atraumatic, normocephalic - Eye Eye exam: Present: PERRL, conjuntiva pink, sclera anicteric Pupils: Present: PERRL - Neck Neck exam general surgery: Present: supple, trachea midline. Absent: lymphadenopathy - Respiratory Respiratory exam: Present: CTAB. Absent: accessory muscle use, rales, rhonchi, wheezes - Cardiovascular Cardiovascular exam: Present: RRR, +S1, +S2. Absent: diastolic murmur, gallop, rubs, systolic murmur - GI/Abdominal GI/Abdominal exam: Present: normal bowel sounds, soft, no peritoneal signs. Absent: distended, tenderness - Extremities Exam Extremities exam: Present: warm, radial pulses palpable and symetrical. Absent : calf tenderness, cyanotic, pedal edema - Neurological Exam Neurological exam: Present: CN II-XII intact, oriented X3, no focal deficits. Absent: pronater drift, facial droop, speech deficit - Skin Skin exam: Present: dry, intact Internal Medicine: Result - Labs CBC & Chem 7: 05/21/16 00:54 05/21/16 00:54 - ABG Interpretation ABG results: PT/INR, D-dimer PT 13.5 Seconds (9.4-12.1) H 05/21/16 00:54 Consult Discharge Plan - Plan Referrals: Radha Newell MD [Primary Care Provider] - 05/30/16 10:45 am
--- NOTE | 2016-05-22 18:09 | Electrocardiograph Report ---
[facility] Test Date: 2016-05-22 Pat Name: Idris Paulson Department: 113 Room: 3B55 Gender: M [employer] Internship: : 1955 Requested By: Ivette Delarosa Order Number: [id number] Reading MD: Taylor Mccoy Measurements Intervals [place] Rate: 70 P: 7 MT: 151 QRS: 58 QRSD: 110 T: 91 QT: 455 QTc: 475 Interpretive Statements SINUS RHYTHM PROBABLE INFERIOR MYOCARDIAL INFARCTION, PROBABLY OLD WITH POSTERIOR EXTENSION Electronically Signed On 05-22-16 18:08:01 EST by Taylor Mccoy
[2016-05-23] MEDS: Ipratropium/Albuterol Neb 3 ML IH SCH ×4 (03:34→15:52)
[2016-05-23] MEDS: Nitroglycerin 1 INCH/GM PACKET TP SCH ×2 (05:02→11:41)
[2016-05-23] MEDS: Doxycycline 100 MG in 0.9 % Sodium Chloride Mini Bag 100 ML IVPB SCH (05:05)
[2016-05-23 05:21] LABS: Hematocrit 38.6 % (37.5-50.1); Hemoglobin 13.8 g/dL (12.9-16.9); Mean Corpuscular HGB Conc 35.8 g/dL (31.6-35.5); Mean Corpuscular Hemoglobin 31.5 pg (28.0-33.3); Mean Corpuscular Volume 88.1 fL (83.0-100.0); Mean Platelet Volume 9.7 fL (9.4-12.4); Platelet Count 204 K/mcL (140-400); Red Blood Count 4.38 M/mcL (4.19-5.50); Red Cell Distribution Width 12.5 % (11.5-14.5)
[2016-05-23 05:46] LABS: BUN/Creatinine Ratio 16 (6-26); Blood Urea Nitrogen 11 mg/dL (8-26); Calcium 9.1 mg/dL (8.6-10.8); Carbon Dioxide 24 mEq/L (19-29); Chloride 104 mEq/L (98-109); Glucose 162 mg/dL (70-99); Osmolality,Calculated 295 (280-300); Potassium 3.2 mEq/L (3.5-4.5); eGFR For African Americans > 60 (> 60); eGFR For Non-African Americans > 60 (> 60)
[2016-05-23 05:47] LABS: Sodium 141 mEq/L (136-145)
[2016-05-23 06:03] LABS: Lymphocytes # 3.3 K/mcL (0.6-4.6); Monocytes # 0.3 K/mcL (0.0-1.3); Neutrophils # 4.7 K/mcL (1.6-8.9)
[2016-05-23 06:04] LABS: Platelet Estimate Normal (Normal); Reactive Lymphocytes Present (Not Present)
[2016-05-23] MEDS ORDERED: Regadenoson 0.4 MG/5 ML SYRINGE IVP ONE (06:20)
[2016-05-23] MEDS: Aspirin Enteric Coated 81 MG Tablet PO SCH (09:49)
[2016-05-23] MEDS: Fluticasone Propionate Nasal 50 MCG/SPRAY BOTTLE NS SCH (09:50)
[2016-05-23] MEDS: Fenofibrate 54 MG TABLET PO SCH (09:50)
--- NOTE | 2016-05-23 10:40 | ECHO - Doppler Report ---
Echocardiogram Name: Idris Paulson Date of Study: 05/22/2016 Date: 1955 Ht: 69.0 in Medical Record#: [id number] Age: 61 Wt: 180.0 lb Gender: Male BSA: 1.98 Order #: [id number] Location: [facility] Room #: 3B55 Reading Physician: Kira Magallon DO Personnel Specialist: Jillian Cox RDCS Ordering Physician: Jamie Sawyer CNP Primary Physician: Radha Newell MD Indications: Chest pain, EKG Changes Impressions: LVEF 60-65%. Normal left ventricular size and systolic function. Normal diastolic function of the left ventricle. Mildly dilated RV with normal function. No significant valvular dysfunction. No pulmonary hypertension. Left Ventricular Wall Motion: Rest Echo Findings All wall segments showed normal motion. Findings: Study Quality * Technically adequate exam. ECG Findings * Normal sinus rhythm. Left Atrium * Normal left atrial size. Mitral Valve * Normal mitral valve structure. * No mitral stenosis. * Trace mitral regurgitation. Aortic Valve * No aortic regurgitation. * Aortic valve not well visualized. * No aortic stenosis. Tricuspid Valve * Tricuspid valve not well visualized. * No tricuspid regurgitation. Pulmonic Valve * Pulmonic valve is not well visualized. * No pulmonic stenosis. * No pulmonic regurgitation. Pulmonary Artery * Pulmonary artery not well visualized. Left Ventricle * Normal LV chamber size, wall thickness and function. * Normal left ventricular diastolic function. * LVEF 60-65%. Right Atrium * Normal right atrial size. Right Ventricle * Mildly dilated RV with normal function. Interatrial Septum * No evidence of PFO by color Doppler. IVC * The IVC is not well evaluated. Pericardium * There is no pericardial effusion present. Aorta * Not well visualized. History Hypertension Diabetes Hypercholesteremia Measurements: BP: 121/ 69 2D Normal Values IVSd: .80 cm 0.6 - 1.0 cm LVIDd: 5.18 cm 3.7 - 5.6 cm LVPWd: .82 cm 0.6 - 1.1 cm LVIDs: 2.46 cm 1.5 - 3.6 cm LA: 3.30 cm 2.0 - 4.0cm %FS: 52.50 cm >25 % LVOT Diam: 2.00 cm LA volume: 44 Mitral Valve Peak E:1.02 m/sec Peak A:.79 m/sec E/A Ratio:1.3 Peak E' Lat Baljit:11.6 cm/s Peak E' Med Baljit:7.58 cm/s E/E' Lat Ratio:8.8 E/E' Med Ratio:13.5 Tricuspid Valve TV Regurg Peak Grad: 28.00mmHg TV Regurg Peak Baljit: 2.65m/sec Updated by Kira Magallon on 05/23/2016 10:33:18 AM electronically signed on 05/23/2016 10:34:02 AM with status of Final Wall Motion Denis: 1=Normal, 2=Hypokinesis, 3=Akinesis, 4=Dyskinesis, 5=Aneurysmal, 6=Hyperkinetic, X=Not Visualized (Blank)=Missing
--- NOTE | 2016-05-23 11:02 | Cardiology Progress Note ---
Date of Encounter: 05/23/16 Time of Encounter: 10:59 Assessment and Plan (1) Chest pain Current Visit: Yes Status: Acute Pt c/o sohail upper chest pain without radiation. Troponins negaitve x 3. Has been chest pain free since admission. Cardiology consulted for EKG changes. Anterolateral T wave depressions noted on EKG 05/20/16. Improved on EKG 05/22/16. May have been related his gastritis and electrolyte abnormalities--K was 3.1 on admission. Risk factors for CAD include DM, HTN, HLD. No prior cardiac work-up. Echo EF 60-65%. Stress test pending. If negative, will sign off from cardiac standpoint. Qualifiers: Chest pain type: chest pain on breathing Qualified Code(s): R07.1 - Chest pain on breathing (2) Abdominal aneurysm Current Visit: Yes Status: Acute Asymptomatic 5.2cm AAA. Seen by vascular who has scheduled outpatient follow- up. (3) Essential hypertension Current Visit: Yes Status: Chronic BP as high as 170s yesterday--140s this AM. Continue current antihypertensives and adjust as necessary. Discussion w patient/family: The assessment and plan as outlined above was discussed with the patient and/or family members who expressed understanding and agreement. All questions were answered. Thank you for involving us in the care of your patient. Please call with any questions. I will discuss all the above with Dr. Huber and make changes as necessary. Subjective Principal diagnosis: Chest pain Interval history: Echo resulted--EF 60-65%, normal structure and function. Stress test pending. Pt denies any chest pain overnight. Objective Vital Signs, Last 4 Hours Temp Pulse Resp BP Pulse Ox 05/23/16 10:00 93 L 05/23/16 09:36 97.5 F L 65 16 146/83 93 L Vital Signs Temp Pulse Resp BP Pulse Ox 05/23/16 10:00 93 L 05/23/16 09:36 97.5 F L 65 16 146/83 93 L 05/23/16 04:31 98.0 F 64 12 144/80 97 05/22/16 23:32 97.5 F L 83 18 175/84 97 05/22/16 20:13 18 98 05/22/16 20:12 97.5 F L 80 18 165/80 98 05/22/16 16:46 16 98 05/22/16 15:21 97.3 F L 65 16 119/76 98 05/22/16 14:55 16 97 05/22/16 12:20 97.6 F 74 16 121/69 97 Intake and Output 05/22/16 05/23/16 05/23/16 23:59 07:59 15:59 Intake Total 200 / 200 100 / 100 Balance 200 / 200 100 / 100 Intake: IV Fluids 200 / 200 100 / 100 Doxycycline 100 MG In 0.9 200 / 200 100 / 100 % Sodium Chloride (Mini- Bag +) 100 ML @ 100 mls/ hr IVPB Q12HR [facility] Rx#: [id number] Other: Weight 83.688 kg Blood Glucose* 309 122 Patient Weight 05/23/16 23:59 Weight 83.688 kg General: Conversant HEENT: Atraumatic, Normocephaly, Mucus Membranes Moist Neck: No JVD, Normal carotid pulses Cardiac: Reg Rate and Rhythm, Normal S1 and S2, No Murmur Lungs: Normal Breath Sounds, No Wheeze, Rales, Rhonchi Neuro: Alert and responsive Abdomen: Soft, Non-Tender Skin: No rashes noted on visualized skin Musculoskeletal: No Chest Wall Tenderness Extremities: No Clubbing, No Cyanosis, No Edema, Normal Pulses Results 05/23/16 04:43 05/23/16 04:43 Lab Results 05/23/16 05/23/16 04:43 04:43 WBC 8.3 Hgb 13.8 Hct 38.6 Plt Count 204 Sodium 141 D Potassium 3.2 L Chloride 104 Carbon Dioxide 24 BUN 11 Creatinine 0.70 L Glucose 162 H Calcium 9.1 Short CBC 05/23/16 Range/Units 04:43 WBC 8.3 (4.3-11.1) K/mcL Hgb 13.8 (12.9-16.9) g/dL Hct 38.6 (37.5-50.1) % Plt Count 204 (140-400) K/mcL Neutrophils # 4.7 (1.6-8.9) K/mcL BMP 05/23/16 Range/Units 04:43 Sodium 141 D (136-145) mEq/L Potassium 3.2 L (3.5-4.5) mEq/L Chloride 104 (98-109) mEq/L Carbon Dioxide 24 (19-29) mEq/L BUN 11 (8-26) mg/dL Creatinine 0.70 L (0.72-1.25) mg/dL Glucose 162 H (70-99) mg/dL Calcium 9.1 (8.6-10.8) mg/dL Active Medications Acetaminophen (Tylenol) 650 mg PO Q6HR PRN PRN Reason: Mild Pain (1-3) Stop: 11/19/16 17:22 Acetaminophen/Hydrocodone Bitart ([place] 5-325 Mg) 1 tab PO Q4HR PRN PRN Reason: Moderate Pain (4-6) Stop: 11/19/16 17:22 Last Admin: 05/22/16 06:10 Dose: 1 tab Albuterol/Ipratropium (Duoneb) 3 ml IH [id number] JESENIA PRN Reason: Protocol Stop: 11/20/16 20:01 Last Admin: 05/23/16 07:39 Dose: Not Given Aspirin (Aspirin Ec) 81 mg PO DAILY [facility] Stop: 11/20/16 09:01 Last Admin: 05/23/16 09:49 Dose: 81 mg Clopidogrel Bisulfate (Plavix) 75 mg PO DAILY [facility] Stop: 11/20/16 09:01 Last Admin: 05/23/16 09:49 Dose: 75 mg Fenofibrate (Tricor) 162 mg PO DAILY [facility] Stop: 11/20/16 09:01 Last Admin: 05/23/16 09:50 Dose: 162 mg Fluticasone Propionate (Flonase) 50 mcg NS BID [facility] PRN Reason: Protocol Stop: 11/20/16 21:01 Last Admin: 05/23/16 09:50 Dose: Not Given Guaifenesin (Mucinex) 600 mg PO BID PRN PRN Reason: Congestion Stop: 11/20/16 16:24 Doxycycline Hyclate 100 mg/ (Sodium Chloride) 100 mls @ 100 mls/hr IVPB Q12HR [facility] Stop: 11/20/16 18:01 Last Infusion: 05/23/16 09:50 Dose: Infused Ibuprofen (Motrin) 400 mg PO Q6HR PRN PRN Reason: Mild Pain (1-3) Stop: 11/19/16 17:22 Lisinopril (Zestril) 10 mg PO DAILY [facility] PRN Reason: Protocol Stop: 11/20/16 09:01 Last Admin: 05/23/16 09:49 Dose: 10 mg Metoprolol Tartrate (Lopressor) 12.5 mg PO BID [facility] Stop: 11/19/16 21:01 Last Admin: 05/23/16 09:50 Dose: 12.5 mg Naloxone HCl (Narcan) 0.4 mg IVP Q2MIN PRN PRN Reason: Opioid Reversal Stop: 11/19/16 17:13 Nitroglycerin (Nitroglycerin) 1 inch TP Q6HNTG [facility] Stop: 11/20/16 16:27 Last Admin: 05/23/16 05:02 Dose: Not Given Ondansetron HCl (Zofran) 4 mg IVP Q8HR PRN PRN Reason: Nausea And Vomiting Stop: 11/19/16 17:22 - Imaging and Cardiology Stress Test: pending Echo: report reviewed (EF 60-65%. normal structure and function.) - EKG Interpretation EKG results cardiology: other (12 hour tele AVG HR 65, no significant pauses or arrhythmias) Consult Discharge Plan - Plan Referrals: Radha Newell MD [Primary Care Provider] - 05/30/16 10:45 am
--- NOTE | 2016-05-23 12:06 | Nuclear Medicine Stress Report ---
Regadenoson Nuclear Stress Name: Idris Paulson Date of Study: 05/23/2016 Date: 1955 Ht: 69.0 in Medical Record#: [id number] Age: 61 Wt: 190.0 lb Gender: Male Order #: [id number] Location: [facility] Room: [facility] Supervising Provider: Ventura Zarate CNP Reading Physician: Kira Magallon DO Ordering Physician: Ivette Delarosa MD Primary Care Physician: None Stress Technologist: Corie Carter BULK MAIL TECHNICIAN, CCT Truck Chauffeur: Gael Hinds Indications: Chest Pain Impression: Perfusion imaging was negative for ischemia or infarct. Pharmacologic ECG was negative for ischemia at the level of heart rate achieved. Occasional PVCs. Gated EF = >70%. History: Hypertension Diabetes Hypercholesteremia Stress Test Summary: Stress Test Type: Pharmacologic Regadenoson 0.4mg/5ml given IV Baseline Information: Initial Heart Rate: 65 Blood Pressure: 138/62 Stress Information: Test Terminated Due to (primary): As per protocol Maximum Blood Pressure: 122/70 Maximum Heart Rate: 80 Percent Maximum Heart Rate Achieved: 50 Double Product: [id number] METS Reached: 1 Symptoms: No chest symptoms Nuclear Summary: SPECT myocardial perfusion imaging using Tc99m Sestamibi given intravenously was performed at rest and following cardiac stress testing. The resting images were obtained following initial dose of 11.6 mCi. Following stress an additional dose of 34.1 mCi was given at peak exercise or 30 seconds post regadenoson infusion. Medication Given: Time Medication Dose Units Route Findings: Stress Note * Resting ECG demonstrated normal sinus rhythm with nonspecific ST-T abnormalities. * Pharmacologic stress ECG is negative for ischemia at level of heart rate achieved. No appreciable change in baseline ECG. * Occasional PVCs noted during stress. * Patient had no chest pain during stress. Hemodynamic responses * Normal hemodynamic responses to pharmacologic stress. Study Quality * Study quality is good. Gated EF > 70% * Gated EF > 70%. Left Ventricle * The left ventricle is not dilated. TID * No evidence of transient ischemic dilatation. Lung Uptake * There is no evidence of increase lung uptake. NORMALS * Normal wall motion. * Normal segmental perfusion in stress. * Normal Segmental Perfusion in rest. Updated by Kira Magallon on 05/23/2016 12:01:32 PM electronically signed on 05/23/2016 12:02:26 PM with status of Final
[2016-05-23 12:08] LABS: Hepatitis A Antibody IgM Nonreactive (Nonreactive); Hepatitis B Core IgM Nonreactive (Nonreactive); Hepatitis C Virus Antibody Nonreactive (Nonreactive)
--- NOTE | 2016-05-23 12:26 | Event Note ---
Date of Encounter: 05/23/16 Time of Encounter: 12:26 Stress test negative for ischemia or infarct. Cardiology signing off. Reconsult PRN.
--- NOTE | 2016-05-23 12:41 | Discharge Summary ---
Date of Encounter: 05/23/16 Time of Encounter: 12:00 - Discharge Diagnosis (1) Chest pain Priority: Primary Status: Acute Qualifiers: Chest pain type: chest pain on breathing Qualified Code(s): R07.1 - Chest pain on breathing (2) Abdominal aneurysm Priority: Secondary Status: Acute (3) Bronchitis Priority: Secondary Status: Acute (4) Hypokalemia Priority: Secondary Status: Acute (5) Total bilirubin, elevated Priority: Secondary Status: Acute (6) Gastritis Priority: Secondary Status: Chronic Qualifiers: Gastritis type: other gastritis Chronicity: acute Gastritis bleeding: without bleeding Qualified Code(s): K29.00 - Acute gastritis without bleeding (7) DVT prophylaxis Priority: Secondary Status: Acute (8) Diabetes mellitus Priority: Secondary Status: Acute Qualifiers: Diabetes mellitus type: type 2 Diabetes mellitus complication status: without complication Diabetes mellitus terminal press operator insulin use: without terminal press operator use Qualified Code(s): E11.9 - Type 2 diabetes mellitus without complications - Discharge Medications Prescriptions: GuaiFENesin ER [Mucinex] 600 mg PO BID PRN 14 Days PRN Reason: Congestion Metformin [Glucophage] 500 mg PO BIDWM #60 tablet Home Medications: Aspirin [Lo-Dose Aspirin EC] 81 mg PO DAILY 05/20/16 [History] Citalopram [CeleXA] 20 mg PO DAILY 05/20/16 [History] Clopidogrel [Plavix] 75 mg PO DAILY 05/20/16 [History] Fenofibrate Nanocrystallized [Tricor] 145 mg PO DAILY 05/20/16 [History] Lisinopril [Zestril] 10 mg PO DAILY 05/20/16 [History] GuaiFENesin ER [Mucinex] 600 mg PO BID PRN 14 Days 05/23/16 [Rx] Metformin [Glucophage] 500 mg PO BIDWM #60 tablet 05/23/16 [Rx] Allergies/Adverse Reactions: Allergies No Known Allergies Allergy (Verified 05/20/16 12:17) Procedures/tests Complete & Pending: Procedures Performed prior 72 hours Category Date Time Status NM deepa perf SPECT multi [NM] Routine Exams 05/22/16 18:31 Taken US liver [US] Routine Exams 05/21/16 10:55 Completed EKG [ECG 12 lead ECG] [ECG] Stat Y 05/22/16 08:19 Completed EV echocardiogram Routine Y 05/22/16 13:31 Completed SP pharm nuclear stress Routine Y 05/23/16 07:30 Completed - Notes to Outpatient Provider 1. Patient was newly diagnosed as diabetes, with hemoglobin A1c 7.4. Will start diabetic diet, metformin 500 twice a day. Please follow up as outpatient. 2. Patient has a low potassium level at 3.2 today. 40 mEq KCl po given, encourage eat banana, please follow up potassium level as outpatient. Date of admission: 05/20/16 15:57 Primary care physician: Radha Newell Consults: 05/21/16 16:36 Consult to Cardiothoracic Surgery [CONS] Routine Consulting Provider: Cardiothoracic Surgery Gloria Reason for Consult: AAA Call Completed: Yes 05/22/16 10:38 Consult to Cardiology [CONS] Routine Comment: Consulting Provider: Cardiology Gloria Reason for Consult: Chest pain, EKG change Call Completed: No Discharging clinician: Ivette Delarosa Anticipated date of discharge: 05/23/16 - Patient Status Disposition: Home, Self-Care Condition: Good Functional capacity at discharge: independent ambulation Overall status at discharge: patient is back to baseline - Discharge Instructions Follow Up With: Radha Newell MD [Primary Care Provider] - 05/30/16 10:45 am - Diet and Activity Activity: increase activity as tolerated Diet: diabetic diet Interval History: Mr. Paulson is a 61 year old male with h/o AAA, HTN, Hyperlipidemia, CVA with R sided weakness/deficit, and depression who reports 3 day h/o n/v/d and sohail chest pain. Pt denies sob, diaphoresis, or radiation of pain. States that he has a close friend who has been around him who had the same symptoms. Pt denies any other recent illness, cough, congestion. Reports fever at home. Reports low abd cramping with diarrhea and the sohail chest pain x 4 days. States that he has not eaten for 3 days. Hospital course: Mr. Paulson is a 61 year old male is admitted for cough and chest pain. He was diagnosed as acute bronchitis. He was given cough syrup and nebulizer treatment. He was also followed her 3 sets of troponin, which are negative. However, his first EKG shows T-wave inversion, cardiology consult was called and patient had stress test. Stress test the results negative for ischemia. Patient is planned to discharge home. I saw and examined the patient today. He is awake alert, oriented 3. He has no chest pain or shortness of breath. Minimal cough. Patient was found hemoglobin A1c 7.4 and hyperglycemia during hospitalization. Consider he has diabetes. Will start patient with metformin 500 mg by mouth twice a day. parent educator will see patient for diet and self glucose checks education. Patient is advised to follow his PCP for further management. Patient was found mild hypokalemia today with potassium level 3.2, possibly due to recent poor uptake. 40mEq KCl was given. Patient has good appetite now and was advised to eat some banana. Patient will follow-up potassium level with PCP as outpatient. - Time Spent with Patient Total time spent providing and/or coordinating discharge services: 40 minutes Greater than 30 minutes - Constitutional Vitals: Temp Pulse Resp BP Pulse Ox 97.6 F 67 16 127/71 96 05/23/16 11:46 05/23/16 11:46 05/23/16 11:46 05/23/16 11:46 05/23/16 11:46 General appearance: Present: A&O X 3, pleasant, no acute distress - Head Head exam: Present: atraumatic, normocephalic - Eye Eye exam: Present: PERRL, conjuntiva pink, sclera anicteric Pupils: Present: PERRL - Neck Neck exam general surgery: Present: supple, trachea midline. Absent: lymphadenopathy - Respiratory Respiratory exam: Present: CTAB. Absent: accessory muscle use, rales, rhonchi, wheezes - Cardiovascular Cardiovascular exam: Present: RRR, +S1, +S2. Absent: diastolic murmur, gallop, rubs, systolic murmur - GI/Abdominal GI/Abdominal exam: Present: normal bowel sounds, soft, no peritoneal signs. Absent: distended, tenderness - Extremities Exam Extremities exam: Present: warm, radial pulses palpable and symetrical. Absent : calf tenderness, cyanotic, pedal edema - Neurological Exam Neurological exam: Present: CN II-XII intact, oriented X3, no focal deficits. Absent: pronater drift, facial droop, speech deficit Additional comments: Right residual weakness due to previous CVA - Skin Skin exam: Present: dry, intact
[2016-05-23 15:26] VITALS: BP 144/78
== END 2016-05-23 16:41 | disposition home or self-care (01) ==
LOC: 3BNU 12:12 → EMEROO 12:12 → 3BNU 16:28
PROVIDERS: ADMIT Internal Medicine; ATTEND Internal Medicine

== ENCOUNTER 2017-07-08 20:52 | Inpatient (IN) ==
[2017-07-08] MEDS ORDERED: Ibuprofen 800 MG TABLET PO ONE (21:32)
--- NOTE | 2017-07-08 21:44 | Emergency Department Note ---
Disposition Clinical Impression: Febrile illness, Shortness of breath Disposition: Still a Patient Condition: Fair Referrals: Radha Newell MD [Primary Care Provider] - Forms: ED Satisfaction Letter, Work/School Release General Adult HPI - General Chief complaint: ED General Medical Stated complaint: PCP sent, possible PE Time Seen by Provider: 07/08/17 21:27 Source: patient Limitations: no limitations Nursing Notes Reviewed: Yes Vital Signs Reviewed: Yes - History of Present Illness HPI Narrative: 62-year-old male presents emergency room for shortness of breath. Onset a few days ago. Went to the doctor and they checked a d-dimer and it came back greater than 4000. Patient was sent to the ER for evaluation. Upon arrival, patient was found to have a fever of 102. He denies any cough. He states he does feel short of breath. Denies any long travels in a car plane. No history of DVT or PE. Denies a sore throat. Denies chest pain. No abdominal pain. No vomiting or diarrhea. Questionable urinary hesitancy. No other complaints. He does have a history of a CVA. Pain Scale: 0 - Related Data Home Medications Medication Instructions Recorded Confirmed Aspirin [Lo-Dose Aspirin EC] 81 mg PO DAILY 05/20/16 05/20/16 Citalopram [CeleXA] 20 mg PO DAILY 05/20/16 05/20/16 Clopidogrel [Plavix] 75 mg PO DAILY 05/20/16 05/20/16 Fenofibrate Nanocrystallized 145 mg PO DAILY 05/20/16 05/20/16 [Tricor] Lisinopril [Zestril] 10 mg PO DAILY 05/20/16 05/20/16 Previous Rx's Medication Instructions Recorded GuaiFENesin ER [Mucinex] 600 mg PO BID PRN 14 Days 05/23/16 tbbp.12hr metFORMIN [Glucophage] 500 mg PO BIDWM #60 tablet 05/23/16 Allergies Allergy/AdvReac Type Severity Reaction Status Date / Time No Known Allergies Allergy Verified 07/08/17 21:07 All systems ED: reviewed and negative except as stated. Constitutional: Reports: fever, chills Eyes: Reports: as per HPI ENT ED: Reports: as per HPI Cardiovascular: Denies: chest pain, palpitations Respiratory: Reports: dyspnea. Denies: cough Gastrointestinal: Reports: as per HPI Genitourinary: Reports: as per HPI Musculoskeletal: Reports: as per HPI. Denies: back pain, neck pain Integumentary: Denies: rash, abrasion Neurological: Denies: headache, weakness Psychiatric: Reports: as per HPI Endocrine: Reports: as per HPI, fatigue Hematological/Lymphatic: Reports: as per HPI Allergic/Immunologic: Reports: as per HPI Past Medical History - Past Medical History Medical history: Reports: aortic aneurysm, CVA, hyperlipidemia, hypertension, other Psychiatric history: Reports: depression - Social History Smoking Status: Former smoker Smokeless Tobacco Status: No Alcohol use: Reports: none Drug use: Reports: none Physical Exam - General Limitations: no limitations General appearance: alert - Head Head exam: atraumatic, normocephalic - Eye Eye exam: Present: normal appearance - ENT ENT exam: normal exam - Neck Neck exam: Present: normal inspection - Chest Chest inspection: Present: normal inspection, symmetric chest wall rise - Respiratory Respiratory exam: Present: normal lung sounds bilaterally. Absent: respiratory distress, wheezes, stridor, accessory muscle use, prolonged expiratory phase - Cardiovascular Cardiovascular exam: Present: normal rhythm, tachycardia - Abdominal Exam Abdominal exam: Present: soft, normal bowel sounds. Absent: tenderness - Extremities Exam Extremities exam: Present: normal inspection - Expanded Lower Extremity Exam Hip/Pelvis exam: Present: normal inspection - Neurological Exam Neurological exam: Present: alert, oriented X3, other (chronic deficits from previous cva ) - Psychiatric Psychiatric exam: Present: normal affect, normal mood - Skin Skin exam: Present: warm, dry, intact Course Vital Signs Temperature 102.3 F H 07/08/17 21:08 Pulse Rate 119 07/08/17 21:08 Respiratory Rate 18 07/08/17 21:08 Blood Pressure 133/71 07/08/17 21:08 O2 Sat by Pulse Oximetry 94 07/08/17 21:08 Temperature 101.4 F H 07/08/17 21:56 Pulse Rate 114 07/08/17 21:56 Respiratory Rate 18 07/08/17 21:56 Blood Pressure 145/78 07/08/17 21:56 O2 Sat by Pulse Oximetry 96 07/08/17 22:01 Oxygen Delivery Oxygen Delivery Room Air Medical Decision Making - Medical Records Medical records reviewed: Yes I reviewed the patient's medical records. - Lab Data Lab results reviewed: Yes I reviewed the patient's lab results. Result diagrams: 07/08/17 21:49 Lab Results 07/08/17 07/08/17 Range/Units 21:49 21:49 WBC 11.7 H (4.3-11.1) K/mcL RBC 4.94 (4.19-5.50) M/mcL Hgb 14.8 (12.9-16.9) g/dL Hct 42.0 (37.5-50.1) % MCV 85.0 (83.0-100.0) fL MCH 30.0 (28.0-33.3) pg MCHC 35.2 (31.6-35.5) g/dL RDW 12.9 (11.5-14.5) % Plt Count 171 (140-400) K/mcL MPV 9.5 (9.4-12.4) fL Immature Gran % 0.6 (0-4) % Seg Neutrophils % 88.6 % Lymphocytes % 4.9 % Monocytes % 5.6 % Eosinophils % 0.0 % Basophils % 0.3 % Neutrophils # 10.4 H (1.6-8.9) K/mcL Lymphocytes # 0.6 (0.6-4.6) K/mcL Monocytes # 0.7 (0.0-1.3) K/mcL Eosinophils # 0.0 (0.0-0.6) K/mcL Basophils # 0.0 (0.0-0.2) K/mcL Immature Plt Fraction 2.9 (1.1-6.1) % Lactic Acid 3.6 H (0.5-2.2) mmol/L - Radiology Data Radiology results reviewed: Yes I reviewed the patient's radiology results. - EKG Data EKG #1 EKG results narrative: EKG shows a rate of 118. Sinus tachycardia. Left axis deviation. DC interval 122. QRS 97. QTC 434. No signs of acute ischemia.
[2017-07-08 22:01] LABS: Basophils % 0.3 %; Hemoglobin 14.8 g/dL (12.9-16.9); Immature Granulocytes % 0.6 % (0-4); Immature Platelets 2.9 % (1.1-6.1); Lymphocytes # 0.6 K/mcL (0.6-4.6); Lymphocytes % 4.9 %; Mean Corpuscular HGB Conc 35.2 g/dL (31.6-35.5); Mean Platelet Volume 9.5 fL (9.4-12.4); Monocytes # 0.7 K/mcL (0.0-1.3); Monocytes % 5.6 %; Neutrophils # 10.4 K/mcL (1.6-8.9); Platelet Count 171 K/mcL (140-400); Red Blood Count 4.94 M/mcL (4.19-5.50); Red Cell Distribution Width 12.9 % (11.5-14.5); Segmented Neutrophils % 88.6 %
[2017-07-08] MEDS ORDERED: 0.9 % Sodium Chloride 1,000 ML IVC ONE (22:17)
[2017-07-08 23:00] LABS: Bilirubin,Urine Small (Negative); Blood,Urine Large (Negative); Clarity,Urine Clear (Clear); Color,Urine Dark Yellow (Yellow); Glucose,Urine (UA) >=1000 mg/dL (Normal); Ketones,Urine Negative (Negative); Leukocyte Esterase,Urine Negative (Negative); Nitrite,Urine Negative (Negative); PH,Urine 5.5 pH Units (5.0-8.0); Protein,Urine >=1000 mg/dL (Neg-Trace); Specific Gravity,Urine > 1.030 (1.010-1.025); Urobilinogen,Urine Normal (Normal)
[2017-07-08 23:03] LABS: Bacteria,Urine None Seen per hpf (None-Few); Squamous Epithelial Cell,Urine Many per lpf (None-Few)
--- NOTE | 2017-07-08 23:04 | Emergency Department Note ---
Disposition Clinical Impression: Febrile illness, Shortness of breath, Elevated troponin, Viral syndrome Disposition: Admitted As Inpatient Condition: Fair Referrals: Radha Newell MD [Primary Care Provider] - Forms: ED Satisfaction Letter, Work/School Release Time of Disposition: 01:23 General Adult HPI - General Chief complaint: ED General Medical Stated complaint: PCP sent, possible PE Time Seen by Provider: 07/08/17 21:27 Source: patient Limitations: no limitations - History of Present Illness Pain Scale: 0 - Related Data Home Medications Medication Instructions Recorded Confirmed Aspirin [Lo-Dose Aspirin EC] 81 mg PO DAILY 05/20/16 05/20/16 Citalopram [CeleXA] 20 mg PO DAILY 05/20/16 05/20/16 Clopidogrel [Plavix] 75 mg PO DAILY 05/20/16 05/20/16 Fenofibrate Nanocrystallized 145 mg PO DAILY 05/20/16 05/20/16 [Tricor] Lisinopril [Zestril] 10 mg PO DAILY 05/20/16 05/20/16 Previous Rx's Medication Instructions Recorded GuaiFENesin ER [Mucinex] 600 mg PO BID PRN 14 Days 05/23/16 tbbp.12hr metFORMIN [Glucophage] 500 mg PO BIDWM #60 tablet 05/23/16 Allergies Allergy/AdvReac Type Severity Reaction Status Date / Time No Known Allergies Allergy Verified 07/08/17 21:07 Constitutional: Reports: fever, chills Eyes: Reports: as per HPI ENT ED: Reports: as per HPI Cardiovascular: Denies: chest pain, palpitations Respiratory: Reports: dyspnea. Denies: cough Gastrointestinal: Reports: as per HPI Genitourinary: Reports: as per HPI Musculoskeletal: Reports: as per HPI. Denies: back pain, neck pain Integumentary: Denies: rash, abrasion Neurological: Denies: headache, weakness Psychiatric: Reports: as per HPI Endocrine: Reports: as per HPI, fatigue Hematological/Lymphatic: Reports: as per HPI Allergic/Immunologic: Reports: as per HPI Past Medical History - Past Medical History Medical history: Reports: aortic aneurysm, CVA, hyperlipidemia, hypertension, other Psychiatric history: Reports: depression - Social History Smoking Status: Former smoker Smokeless Tobacco Status: No Alcohol use: Reports: none Drug use: Reports: none Physical Exam - General Limitations: no limitations General appearance: alert Course Course Narrative: Patient was signed out by the daytime physician Dr. Agustin. Patient presents to the emergency room in the care of family for evaluation of a fever and abnormal labs and imaging that was ordered from outpatient provider. Patient has chronic right-sided weakness secondary to stroke. He also has a known abdominal aneurysm. He was seen and evaluated the outside setting and was ordered to have lab work completed. His d-dimer was 4900. His chest x-ray showed a spiculated lesion in the left lower lobe of the lungs. Child is febrile up to 103. His heart rate was slightly elevated initially is back to normal at this time. Patient has been provided with antipyretic to stop the. This point. Patient physical exam his resting comfortably in the bed. He answers questions. His skin is diaphoretic and wet secondary to the fever. His lungs are clear to auscultation at this point despite the known spiculated lesion. Abdomen is soft is a pulsatile mass in the middle of his abdomen but he has no pain no symptoms no tearing sensation noted. Pulses are intact patient's skin color appropriate. Blood pressure is stable. Labs were started by the previous physician. His white count is slightly elevated. Influenza swab is pending. Kidney function is normal. Urinalysis is still pending. CT angiography of the chest is ordered and results will be reviewed. Antibiotics have not been started at this point secondary to an unknown source to the infectious etiology. Symptoms appear to be viral in nature at least initially. We will continue to monitor his treatment course is completed. Disposition to be determined once the workup is completed. See detailed documentation of the physical exam, medical intervention, medical decision-making and disposition in the documented chart. - Reevaluation(s) Reevaluation #1: Patient found a negative CT angiography of the chest for pulmonary emboli or signs of infiltrate. CT of the abdomen shows a stable infrarenal aneurysm that is slightly larger than previous scan from almost 4 years ago. Patient has what appears to be an elevated troponin and BNP secondary to unknown etiology outside of potential viral syndrome. Patient was febrile and tachycardic on presentation this could be an exacerbation or secondary finding secondary to the illness. Patient provided a fluid hydration here. No antibiotic regimen will be started this time considering there is no visible bacterial infectious etiology to treat. Patient will be admitted for further evaluation and management. Otherwise he has been hemodynamically stable and his fever is not controlled to the emergency room. No critical care problems patient's treatment course. Admission process will be completed at this time. Family informed that cannot this plan. Aspirin was given secondary to the elevated troponin. Patient will be observed in the emergency room to the admission process is completed Time: 01:23 Vital Signs Temperature 102.3 F H 07/08/17 21:08 Pulse Rate 119 07/08/17 21:08 Respiratory Rate 18 07/08/17 21:08 Blood Pressure 133/71 07/08/17 21:08 O2 Sat by Pulse Oximetry 94 07/08/17 21:08 Temperature 99.8 F H 07/08/17 22:48 Pulse Rate 81 07/09/17 00:30 Respiratory Rate 18 07/09/17 00:30 Blood Pressure 122/72 07/09/17 00:30 O2 Sat by Pulse Oximetry 96 07/09/17 00:30 Oxygen Delivery Oxygen Delivery Nasal Cannula Medical Decision Making - MDM Narrative Medical decision making narrative: Fever, viral syndrome, abnormal labs., Elevated troponin, elevated BNP - Medical Records Medical records reviewed: Yes I reviewed the patient's medical records. - Lab Data Lab results reviewed: Yes I reviewed the patient's lab results. Result diagrams: 07/08/17 21:49 07/08/17 21:49 Lab Results 07/08/17 07/08/17 07/08/17 Range/Units 21:49 21:49 21:49 WBC 11.7 H (4.3-11.1) K/mcL RBC 4.94 (4.19-5.50) M/mcL Hgb 14.8 (12.9-16.9) g/dL Hct 42.0 (37.5-50.1) % MCV 85.0 (83.0-100.0) fL MCH 30.0 (28.0-33.3) pg MCHC 35.2 (31.6-35.5) g/dL RDW 12.9 (11.5-14.5) % Plt Count 171 (140-400) K/mcL MPV 9.5 (9.4-12.4) fL Immature Gran % 0.6 (0-4) % Seg Neutrophils % 88.6 % Lymphocytes % 4.9 % Monocytes % 5.6 % Eosinophils % 0.0 % Basophils % 0.3 % Neutrophils # 10.4 H (1.6-8.9) K/mcL Lymphocytes # 0.6 (0.6-4.6) K/mcL Monocytes # 0.7 (0.0-1.3) K/mcL Eosinophils # 0.0 (0.0-0.6) K/mcL Basophils # 0.0 (0.0-0.2) K/mcL Immature Plt Fraction 2.9 (1.1-6.1) % VBG pH (7.32-7.42) pH Units VBG pCO2 (41-51) mmHg VBG pO2 (25-50) mmHg VBG HCO3 (21-27) mEq/L Sodium 128 L (136-145) mEq/L Potassium 3.2 L (3.5-5.1) mEq/L Chloride 92 L (98-107) mEq/L Carbon Dioxide 20 L (23-29) mEq/L BUN 19 (8-23) mg/dL Creatinine 0.95 (0.70-1.30) mg/dL Est GFR ( Amer) > 60 (> 60) Est GFR (Non-Af Amer) > 60 (> 60) BUN/Creatinine Ratio 20 (6-26) Glucose 344 H (70-105) mg/dL Calculated Osmolality 282 (280-300) Lactic Acid 3.6 H (0.5-2.2) mmol/L Calcium 9.8 (8.6-10.3) mg/dL Troponin I 0.05 H* (< 0.04) ng/mL B-Natriuretic Peptide (Less than 100) pg/mL Beta-Hydroxybutyric Acd (0.02-0.27) mmol/L Urine Color (Yellow) Urine Clarity (Clear) Urine pH (5.0-8.0) pH Units Ur Specific Mccarley (1.010-1.025) Urine Protein (Neg-Trace) mg/dL Urine Glucose (UA) (Normal) mg/dL Urine Ketones (Negative) mg/dL Urine Blood (Negative) Urine Nitrite (Negative) Urine Bilirubin (Negative) Urine Urobilinogen (Normal) mg/dL Ur Leukocyte Esterase (Negative) Urine Microscopic RBC (0-3) per hpf Urine Microscopic WBC (0-3) per hpf Ur Squamous Epith Cells (None-Few) per lpf Ur Renal Epithelial Cell (None-Few) per hpf Urine Bacteria (None-Few) per hpf Hyaline Casts (None-Few) per lpf Ur Culture Indicated? (NO) 07/08/17 07/08/17 07/08/17 Range/Units 21:49 22:42 23:44 WBC (4.3-11.1) K/mcL RBC (4.19-5.50) M/mcL Hgb (12.9-16.9) g/dL Hct (37.5-50.1) % MCV (83.0-100.0) fL MCH (28.0-33.3) pg MCHC (31.6-35.5) g/dL RDW (11.5-14.5) % Plt Count (140-400) K/mcL MPV (9.4-12.4) fL Immature Gran % (0-4) % Seg Neutrophils % % Lymphocytes % % Monocytes % % Eosinophils % % Basophils % % Neutrophils # (1.6-8.9) K/mcL Lymphocytes # (0.6-4.6) K/mcL Monocytes # (0.0-1.3) K/mcL Eosinophils # (0.0-0.6) K/mcL Basophils # (0.0-0.2) K/mcL Immature Plt Fraction (1.1-6.1) % VBG pH (7.32-7.42) pH Units VBG pCO2 (41-51) mmHg VBG pO2 (25-50) mmHg VBG HCO3 (21-27) mEq/L Sodium (136-145) mEq/L Potassium (3.5-5.1) mEq/L Chloride (98-107) mEq/L Carbon Dioxide (23-29) mEq/L BUN (8-23) mg/dL Creatinine (0.70-1.30) mg/dL Est GFR ( Amer) (> 60) Est GFR (Non-Af Amer) (> 60) BUN/Creatinine Ratio (6-26) Glucose (70-105) mg/dL Calculated Osmolality (280-300) Lactic Acid 1.6 (0.5-2.2) mmol/L Calcium (8.6-10.3) mg/dL Troponin I (< 0.04) ng/mL B-Natriuretic Peptide 163 H (Less than 100) pg/mL Beta-Hydroxybutyric Acd (0.02-0.27) mmol/L Urine Color Dark Yellow (Yellow) Urine Clarity Clear (Clear) Urine pH 5.5 (5.0-8.0) pH Units Ur Specific Mccarley > 1.030 H (1.010-1.025) Urine Protein >=1000 H (Neg-Trace) mg/dL Urine Glucose (UA) >=1000 H (Normal) mg/dL Urine Ketones Negative (Negative) mg/dL Urine Blood Large H (Negative) Urine Nitrite Negative (Negative) Urine Bilirubin Small H (Negative) Urine Urobilinogen Normal (Normal) mg/dL Ur Leukocyte Esterase Negative (Negative) Urine Microscopic RBC 5-15 H (0-3) per hpf Urine Microscopic WBC 5-15 H (0-3) per hpf Ur Squamous Epith Cells Many H (None-Few) per lpf Ur Renal Epithelial Cell Few (None-Few) per hpf Urine Bacteria None Seen (None-Few) per hpf Hyaline Casts Many H (None-Few) per lpf Ur Culture Indicated? NO (NO) 07/09/17 07/09/17 Range/Units 00:24 00:34 WBC (4.3-11.1) K/mcL RBC (4.19-5.50) M/mcL Hgb (12.9-16.9) g/dL Hct (37.5-50.1) % MCV (83.0-100.0) fL MCH (28.0-33.3) pg MCHC (31.6-35.5) g/dL RDW (11.5-14.5) % Plt Count (140-400) K/mcL MPV (9.4-12.4) fL Immature Gran % (0-4) % Seg Neutrophils % % Lymphocytes % % Monocytes % % Eosinophils % % Basophils % % Neutrophils # (1.6-8.9) K/mcL Lymphocytes # (0.6-4.6) K/mcL Monocytes # (0.0-1.3) K/mcL Eosinophils # (0.0-0.6) K/mcL Basophils # (0.0-0.2) K/mcL Immature Plt Fraction (1.1-6.1) % VBG pH 7.45 H (7.32-7.42) pH Units VBG pCO2 32 L (41-51) mmHg VBG pO2 209 H (25-50) mmHg VBG HCO3 23 (21-27) mEq/L Sodium (136-145) mEq/L Potassium (3.5-5.1) mEq/L Chloride (98-107) mEq/L Carbon Dioxide (23-29) mEq/L BUN (8-23) mg/dL Creatinine (0.70-1.30) mg/dL Est GFR ( Amer) (> 60) Est GFR (Non-Af Amer) (> 60) BUN/Creatinine Ratio (6-26) Glucose (70-105) mg/dL Calculated Osmolality (280-300) Lactic Acid (0.5-2.2) mmol/L Calcium (8.6-10.3) mg/dL Troponin I (< 0.04) ng/mL B-Natriuretic Peptide (Less than 100) pg/mL Beta-Hydroxybutyric Acd 0.47 H (0.02-0.27) mmol/L Urine Color (Yellow) Urine Clarity (Clear) Urine pH (5.0-8.0) pH Units Ur Specific Mccarley (1.010-1.025) Urine Protein (Neg-Trace) mg/dL Urine Glucose (UA) (Normal) mg/dL Urine Ketones (Negative) mg/dL Urine Blood (Negative) Urine Nitrite (Negative) Urine Bilirubin (Negative) Urine Urobilinogen (Normal) mg/dL Ur Leukocyte Esterase (Negative) Urine Microscopic RBC (0-3) per hpf Urine Microscopic WBC (0-3) per hpf Ur Squamous Epith Cells (None-Few) per lpf Ur Renal Epithelial Cell (None-Few) per hpf Urine Bacteria (None-Few) per hpf Hyaline Casts (None-Few) per lpf Ur Culture Indicated? (NO) - Radiology Data Radiology results reviewed: Yes I reviewed the patient's radiology results. Chest x-ray was reviewed from previous. Spiculated lesion noted in the left lower lobe. - EKG Data EKG #1 EKG attestation: Yes I reviewed and interpreted this EKG. EKG results narrative: EKG shows sinus tachycardia. Ventricular rate of 118. When necessary 122. QRS duration of 97. QTC of 434. Intervals appear to be normal. Mild left axis deviation. No acute signs of ST segment elevation or myocardial infarction. No acute signs of WPW or Brugada syndrome. Compared to EKG on 05/22 acute changes
[2017-07-08 23:11] LABS: Hyaline Casts,Urine Many per lpf (None-Few)
[2017-07-08 23:12] LABS: Renal Epithelial Cells,Urine Few per hpf (None-Few)
[2017-07-08 23:17] LABS: Troponin I 0.05 ng/mL (< 0.04)
[2017-07-08 23:48] LABS: BUN/Creatinine Ratio 20 (6-26); Blood Urea Nitrogen 19 mg/dL (8-23); Calcium 9.8 mg/dL (8.6-10.3); Carbon Dioxide 20 mEq/L (23-29); Chloride 92 mEq/L (98-107); Glucose 344 mg/dL (70-105); Osmolality,Calculated 282 (280-300); Potassium 3.2 mEq/L (3.5-5.1); Sodium 128 mEq/L (136-145); eGFR For African Americans > 60 (> 60); eGFR For Non-African Americans > 60 (> 60)
[2017-07-09] MEDS ORDERED: 0.9 % Sodium Chloride 1,000 ML IVC ONE (00:43)
[2017-07-09 00:52] LABS: VBG HCO3 23 mEq/L (21-27); VBG PCO2 32 mmHg (41-51); VBG PH 7.45 pH Units (7.32-7.42); VBG PO2 209 mmHg (25-50)
[2017-07-09] MEDS ORDERED: Aspirin 81 MG TAB.CHEW PO STA (01:04)
--- NOTE | 2017-07-09 03:41 | Internal Med History&Physical ---
<Heaven Dominguez - Last Filed: 07/09/17 03:41> Date of Encounter: 07/09/17 Time of Encounter: 03:36 Assessment and Plan (1) Fever Current visit: Yes Status: Acute Fever of unknown origin 102.3. May be due to upper respiratory infection. Patient recently went to PCP due to cold like symptoms. The patient at admission met Sirs criteria however he is non-toxic appearing and current imaging does not reveal source of infection. febrile, WBC 9.2, lactic acid 1.6 high anion gap which may be secondary to ketones and lactic acid (which in turn could also be secondary to metformin) Plan: start azithromycin, upper respiratory infectious panel pending, blood cultures pending Qualifiers: Qualified Code(s): R50.9 - Fever, unspecified (2) Elevated d-dimer Current visit: Yes Status: Acute Patient recently had labs drawn due to cold like symptoms. His PCP called and informed him that his to dimer was 4900 and that chest x-ray was concerning for PE so he was to go to ED immediately. Chest CTA demonstrated no PE denied leg pain/swelling, recent travel, trauma/falls Lower extremity Doppler ultrasound pending to rule out DVT (3) Diabetes mellitus Current visit: No Status: Acute History of diabetes taking metformin. Glucose is 344. beta- hydroxybutyric acid 0.47 Does not appear to be a DKA. Denies nausea, abdominal pain. Plan: Start low-dose insulin sliding scale, Accu checks, diabetic diet Qualifiers: Diabetes mellitus type: type 2 Diabetes mellitus complication status: without complication Diabetes mellitus rn long term care insulin use: without rn long term care use Qualified Code(s): E11.9 - Type 2 diabetes mellitus without complications (4) Hypokalemia Current visit: No Status: Acute Hypokalemia potassium 3.2. Supplemented with both IV and oral potassium. Magnesium pending (5) Abdominal aneurysm Current visit: No Status: Chronic The patient was notified of the increase in size of the abdominal aortic aneurysm and he was advised to schedule an appointment as soon as he was discharged to follow up with his vascular surgeon Dr. North. He stated clear understanding. CT Abd/ pelvis demonstrated infrarenal abdominal aortic aneurysm increasing mildly in size from 01/18/2014. Aneurysm now measures 8.1 cm in length, 5.3 cm in AP diameter and 5.5 cm in transverse diameter. No evidence of leaking or ruptured aneurysm. (6) Hypertension Current visit: Yes Status: Acute History of hypertension continue home lisinopril Qualifiers: Qualified Code(s): I10 - Essential (primary) hypertension (7) History of stroke Current visit: Yes Status: Acute History of stroke with residual right-sided weakness. Taking Plavix and aspirin. He reported that he has not taken his Plavix for 2 weeks due to running out. (8) DVT prophylaxis Current visit: No Status: Acute heparin sq Internal Medicine - H&P: HPI Chief complaint: PCP sent due to abnormal labs Admitted From: Emergency Dept Plans for Post Hospital Care: Home History of present illness: Mr. Paulson is a 62 year old male PMH stroke with residual right sided weakness, HTN, diabetes, abdominal aortic aneurysm who presented to [facility] after his PCP called and instructed him to go to the ED due to abnormal labs. His ddimer was 4900 and chest x-ray showed a spiculated lesion in the left lower lobe of the lungs. They were concerned there was a PE. He originally went to his PCP due to cold like symptoms that were present for about 3 days. He reports improvement of the cold like symptoms he only has a fever now. The patient denied chest pain, palpitations, shortness of breath, wheezing, cough, abdominal pain, nausea, vomiting, abdominal pain, dysuria, hematuria, lower extremity pain. The patient denied recent travel, long car rides, and falls. In the ED he was febrile, tachycardic, lactic acid 3.6. Hyperglycemia 344. Hypokalemia 3.2. The patient was given 2 IVF boluses and aspirin. Blood cultures were taken. Chest CTA ruled out PE. CT abdomen demonstrated increase in abdominal aortic aneurysm size. Upon examination of the patient he was non- toxic appearing and fever had resolved, lactic acid 1.6. I personally reviewed the EKG and it demonstrated sinus tachycardia, no ST changes. He is alongside his daughter who is able to corroborate the history. Patient is a full code. Past Med Surg Social Fam HX - Past Medical History Medical history: aortic aneurysm, CVA, hyperlipidemia, hypertension, other Psychiatric history: depression - Social History Smoking Status: Former smoker Smokeless Tobacco Status: No Alcohol use: none Drug use: none Internal Medicine - H&P: Meds Aspirin [Lo-Dose Aspirin EC] 81 mg PO DAILY 05/20/16 [History] Citalopram [CeleXA] 20 mg PO DAILY 05/20/16 [History] Clopidogrel [Plavix] 75 mg PO DAILY 05/20/16 [History] Fenofibrate Nanocrystallized [Tricor] 145 mg PO DAILY 05/20/16 [History] Lisinopril [Zestril] 10 mg PO DAILY 05/20/16 [History] GuaiFENesin ER [Mucinex] 600 mg PO BID PRN 14 Days tbbp.12hr 05/23/16 [Rx] metFORMIN [Glucophage] 500 mg PO BIDWM #60 tablet 05/23/16 [Rx] 3 Allergy/AdvReac Type Severity Reaction Status Date / Time No Known Allergies Allergy Verified 07/08/17 21:07 All Systems PM: A 10-system review of systems was performed and is negative for pertinent findings except as documented above in the HPI. - Constitutional Constitutional: chills, fever(s), no falls - Cardiovascular Cardiovascular ROS IM: no chest pain, no lightheadedness, no palpitations, no syncope - Respiratory Respiratory: no cough, no wheezing - Gastrointestinal Gastrointestinal: no abdominal pain, no hematochezia, no melena, no nausea, no vomiting - Genitourinary Genitourinary ROS male: no difficulty urinating, no dysuria, no hematuria - Integumentary Integumentary IM: no erythema, no rash, no skin ulcer, no sores - Neurological Neurological ROS: no frequent falls - Constitutional Vitals: Temp Pulse Resp BP Pulse Ox 99.8 F H 78 16 132/72 98 07/08/17 22:48 07/09/17 02:30 07/09/17 02:30 07/09/17 02:30 07/09/17 02:30 General appearance: Present: A&O X 3, pleasant, no acute distress, answers questions appropriately - Head Head exam: Present: atraumatic, normocephalic - Eye Eye exam: Present: normal appearance. Absent: nystagmus - Respiratory Respiratory exam: Present: CTAB. Absent: rales, rhonchi, wheezes - Cardiovascular Cardiovascular exam: Present: RRR, +S1, +S2 - GI/Abdominal GI/Abdominal exam: Present: normal bowel sounds, soft. Absent: firm, guarding, tenderness - Extremities Exam Extremities exam: Present: normal inspection. Absent: calf tenderness, cyanotic , tenderness - Neurological Exam Neurological exam: Present: alert, oriented X3, facial droop (Residual from stroke). Absent: strengths equal and symetr throughout (Right-sided weakness) - Psychiatric Psychiatric exam: Present: normal affect, normal mood - Skin Skin exam: Present: dry, intact Internal Med - H&P Results - Labs CBC & Chem 7: 07/08/17 21:49 07/08/17 21:49 <Ivette Delarosa - Last Filed: 07/09/17 05:57> Date of Encounter: 07/09/17 Internal Medicine - H&P: HPI History of present illness: Mr. Paulson is a 62 year old male All Systems PM: A 10-system review of systems was performed and is negative for pertinent findings except as documented above in the HPI. - Constitutional Vitals: Temp Pulse Resp BP Pulse Ox 97.8 F 71 16 115/74 98 07/09/17 04:26 07/09/17 03:10 07/09/17 03:10 07/09/17 03:10 07/09/17 03:10 Internal Med - H&P Results - Labs CBC & Chem 7: 07/09/17 04:06 07/09/17 04:06 Labs: Short CBC 07/09/17 Range/Units 04:06 WBC 9.2 (4.3-11.1) K/mcL Hgb 13.3 D (12.9-16.9) g/dL Hct 37.9 (37.5-50.1) % Plt Count 130 L (140-400) K/mcL Neutrophils # 7.2 (1.6-8.9) K/mcL BMP 07/09/17 04:06 Sodium 131 L Potassium 3.1 L Chloride 100 Carbon Dioxide 21 L BUN 17 Creatinine 0.67 L Glucose 296 H Calcium 8.7 Cardiac Enzymes 07/09/17 Range/Units 04:06 Troponin I 0.03 (< 0.04) ng/mL - Attending Attestation I have seen and examined this patient independently. I have discussed with resident physician Dr. Dominguez regarding the management plan. Agree with the documentation.
[2017-07-09] MEDS ORDERED: D5% in Water 1,000 ML IVC PRN (03:57)
[2017-07-09] MEDS ORDERED: Dextrose Gel 15 GM/37.5 ML TUBE PO PRN ×2 (03:57)
[2017-07-09] MEDS ORDERED: *HR* Dextrose 50 % in Water (Syg) 50 ML SYRINGE IVP PRN (03:57)
[2017-07-09] MEDS ORDERED: 0.9 % Sodium Chloride 1,000 ML IVC SCH (04:00)
[2017-07-09 04:19] LABS: Basophils # 0.1 K/mcL (0.0-0.2); Basophils % 0.5 %; Eosinophils % 0.2 %; Hematocrit 37.9 % (37.5-50.1); Hemoglobin 13.3 g/dL (12.9-16.9); Immature Granulocytes % 0.4 % (0-4); Mean Corpuscular HGB Conc 35.1 g/dL (31.6-35.5); Mean Corpuscular Volume 85.4 fL (83.0-100.0); Mean Platelet Volume 9.2 fL (9.4-12.4); Monocytes # 0.9 K/mcL (0.0-1.3); Monocytes % 9.4 %; Neutrophils # 7.2 K/mcL (1.6-8.9); Platelet Count 130 K/mcL (140-400); Red Blood Count 4.44 M/mcL (4.19-5.50); Red Cell Distribution Width 12.9 % (11.5-14.5); Segmented Neutrophils % 78.5 %
[2017-07-09] MEDS ORDERED: Azithromycin 250 MG TABLET PO ONE (04:22)
[2017-07-09] MEDS ORDERED: Naloxone 0.4 MG/ML INJ IVP PRN (04:26)
[2017-07-09 04:38] LABS: Troponin I 0.03 ng/mL (< 0.04)
[2017-07-09 04:42] LABS: BUN/Creatinine Ratio 25 (6-26); Blood Urea Nitrogen 17 mg/dL (8-23); Calcium 8.7 mg/dL (8.6-10.3); Carbon Dioxide 21 mEq/L (23-29); Chloride 100 mEq/L (98-107); Glucose 296 mg/dL (70-105); Osmolality,Calculated 285 (280-300); Potassium 3.1 mEq/L (3.5-5.1); Sodium 131 mEq/L (136-145); eGFR For African Americans > 60 (> 60); eGFR For Non-African Americans > 60 (> 60)
[2017-07-09] MEDS: *HR* Heparin 5,000 UNIT/ML VIAL SQ SCH ×3 (04:50→21:47)
[2017-07-09] MEDS: Insulin LISPRO 300 UNITS/3 ML VIAL SQ SCH ×3 (08:23→16:41)
[2017-07-09 09:08] LABS: BUN/Creatinine Ratio 25 (6-26); Blood Urea Nitrogen 16 mg/dL (8-23); Calcium 8.8 mg/dL (8.6-10.3); Carbon Dioxide 21 mEq/L (23-29); Chloride 102 mEq/L (98-107); Glucose 296 mg/dL (70-105); Osmolality,Calculated 284 (280-300); Potassium 3.9 mEq/L (3.5-5.1); Sodium 131 mEq/L (136-145); eGFR For African Americans > 60 (> 60); eGFR For Non-African Americans > 60 (> 60)
--- NOTE | 2017-07-09 09:50 | Event Note ---
<Rufus Sauceda - Last Filed: 07/09/17 09:46> Date of Encounter: 07/09/17 Time of Encounter: 09:46 Patient seen and examined at bedside. Patient was admitted yesterday due to fever. He reports having fevers at home but has no other complaints. Denies chest pain, shortness of breath, cough, abdominal pain, nausea, vomiting, dysuria. Fevers have resolved this morning the patient states that he feels pretty good. Physical exam: Afebrile Gen.: Awake, alert, oriented 3, no acute distress. Heart: Regular rate and rhythm, no murmurs, rubs, gallops. Lungs: Clear to auscultation bilaterally, no rales, rhonchi, wheezes. Extremities: No edema, no tenderness to palpation. Neuro: 4 out of 5 strength in the right upper and lower extremity, slurred speech noted. Chronic for patient. Assessment and plan: Systemic inflammatory response syndrome: Patient had 2 surgeries criteria with tachycardia and fever. No source of infection noted. Patient also had a lactic acidosis that had resolved. Unclear if this is driven by infection or some other inflammatory response. Fever: Resolved this morning. Cause unclear at this time suspect viral illness. Respiratory infection panel pending. Acute thrombosis is also a consideration , CT was negative, lower extremity Dopplers are pending. No evidence of infectious process on CT of the chest or abdomen. We will discontinue antibiotics as the patient has no clear source of infection that we are treating. History of CVA: Residual deficits noted, no acute changes. <Trav Ahuja - Last Filed: 07/09/17 18:45> Date of Encounter: 07/09/17 Pt admitted earlier today with fever/SIRS. His blood culture is positive for E coli. Exam alert ad comfortable Agree with assessment and plan as above.
[2017-07-09 10:15] LABS: Adenovirus Not Detected (Not Detect); Bordetella Pertussis Not Detected (Not Detect); Chlamydophila pneumoniae Not Detected (Not Detect); Coronavirus 229E Not Detected (Not Detect); Coronavirus HKU1 Not Detected (Not Detect); Coronavirus NL63 Not Detected (Not Detect); Coronavirus OC43 Not Detected (Not Detect); Human Metapneumovirus Not Detected (Not Detect); Human Rhinovirus/Enterovirus Not Detected (Not Detect); Influenza A Subtype 2009 H1 Not Detected (Not Detect); Influenza A Untypeable Not Detected (Not Detect); Influenza B Not Detected (Not Detect); Mycoplasma pneumoniae Not Detected (Not Detect); Parainfluenza Virus 1 Not Detected (Not Detect); Parainfluenza Virus 2 Not Detected (Not Detect); Parainfluenza Virus 3 Not Detected (Not Detect); Parainfluenza Virus 4 Not Detected (Not Detect); Respiratory Syncytial Virus Not Detected (Not Detect)
[2017-07-09 14:13] LABS: Acinetobacter baumannii by PCR Not Detected (Not Detect); Enterococcus by PCR Not Detected (Not Detect); Staphylococcus aureus by PCR Not Detected (Not Detect); Streptococcus agalactiae(B)PCR Not Detected (Not Detect); Streptococcus by PCR Not Detected (Not Detect); Streptococcus pneumoniae PCR Not Detected (Not Detect); Streptococcus pyogenes (A) PCR Not Detected (Not Detect); blaKPC Carbapenem-Resist Gene Not Detected (Not Detect); mecA Methicillin-Resist Gene Not Detected (Not Detect); vanA/B Vancomycin-Resist Genes Not Detected (Not Detect)
[2017-07-09 14:14] LABS: Candida albicans by PCR Not Detected (Not Detect); Candida glabrata by PCR Not Detected (Not Detect); Candida krusei by PCR Not Detected (Not Detect); Candida parapsilosis by PCR Not Detected (Not Detect); Candida tropicalis by PCR Not Detected (Not Detect); Escherichia coli by PCR ***DETECTED*** (Not Detect); Klebsiella oxytoca by PCR Not Detected (Not Detect); Klebsiella pneumoniae by PCR Not Detected (Not Detect); Pseudomonas aeruginosa by PCR Not Detected (Not Detect); Serratia marcescens by PCR Not Detected (Not Detect)
[2017-07-09] MEDS ORDERED: Piperacillin/Tazobactam 3.375 GM in 0.9 % Sodium Chloride Mini Bag 100 ML IVPB SCH (16:00)
[2017-07-09] MEDS ORDERED: *HR* Meperidine 25 MG/ML SYRINGE IVP PRN (17:03)
[2017-07-09] MEDS ORDERED: methylPREDNISolone 125 MG/2 ML VIAL ONE (17:15)
[2017-07-09] MEDS ORDERED: *HR* Metoprolol 5 MG/5 ML VIAL IVP ONE ×2 (17:29→17:45)
--- NOTE | 2017-07-09 17:34 | Electrocardiograph Report ---
[address] [address] Test Date: 2017-07-08 Pat Name: Idris Paulson Department: [id number] Room: 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
[2017-07-09] MEDS ORDERED: *HR* Heparin 5,000 UNIT/ML VIAL ONE (17:41)
[2017-07-09] MEDS ORDERED: Aspirin 81 MG TAB.CHEW ONE (17:42)
[2017-07-09] MEDS ORDERED: *HR* Ticagrelor 90 MG TABLET ONE (17:42)
[2017-07-09 18:24] LABS: Eosinophils % 1.7 %; Hematocrit 38.8 % (37.5-50.1); Hemoglobin 13.4 g/dL (12.9-16.9); Immature Granulocytes % 0.4 % (0-4); Lymphocytes % 10.4 %; Mean Corpuscular HGB Conc 34.5 g/dL (31.6-35.5); Mean Corpuscular Volume 86.8 fL (83.0-100.0); Mean Platelet Volume 9.8 fL (9.4-12.4); Monocytes % 5.9 %; Platelet Count 135 K/mcL (140-400); Red Blood Count 4.47 M/mcL (4.19-5.50); Red Cell Distribution Width 13.2 % (11.5-14.5); Segmented Neutrophils % 81.2 %
[2017-07-09 18:25] LABS: Basophils % 0.4 %; Eosinophils # 0.2 K/mcL (0.0-0.6); Monocytes # 0.6 K/mcL (0.0-1.3); Neutrophils # 7.9 K/mcL (1.6-8.9)
[2017-07-09] MEDS ORDERED: ISOVUE-370 200 ML INFUS..BTL IV ONE ×2 (18:26→18:40)
[2017-07-09] MEDS ORDERED: Nitroglycerin 1,000 MCG/10 ML VIAL IV ONE (18:26)
[2017-07-09] MEDS ORDERED: 0.9 % Sodium Chloride 1,000 ML ONE ×2 (18:26→18:52)
[2017-07-09] MEDS ORDERED: Heparin 1,000 UNITS/500 mL 500 ML ONE (18:26)
[2017-07-09] MEDS ORDERED: *HR* Heparin 10,000 UNIT/10 ML VIAL ONE (18:26)
[2017-07-09 18:31] LABS: INR 1.3; Prothrombin Time 14.4 Seconds (9.4-12.1)
--- NOTE | 2017-07-09 18:39 | Pre-Sedation Evaluation ---
Pre-sedation evaluation - Pre-sedation checklist Date of procedure: 07/09/17 Procedure: [facility] Recent Vitals: Last Vital Signs Temp 98.2 F 07/09/17 16:27 Pulse 91 07/09/17 16:27 Resp 17 07/09/17 16:27 BP 134/73 07/09/17 16:27 Pulse Ox 97 07/09/17 16:27 H&P (including ROS) documented in medical record: Yes Previous reaction to sedatives/anesthetics: No Dietary Status: No solid food in preceding 4 hrs and no liquid in preceding 2 hrs Airway Assessment: Patient can open mouth completely, TMJ function normal, Micrognathia (under-bite, receding chin) absent, Neck with adequate range of motion Dentition: No loose teeth or bridges Possible difficult airway: No ASA Classification *see protocol: CLASS II-Mild systemic disease, E-EMERGENCY- Add to any of the above to indicate emergent Plan of Care: Pt appropriate candidate for procedure/moderate/conscious sedation , Risks/benefits of procedure/sedation discussed w/ patient/family
[2017-07-09 18:48] LABS: Activated Partial Thrombo Time 113.9 Seconds (26.0-36.0)
--- NOTE | 2017-07-09 18:52 | Event Note ---
<Rufus Sauceda - Last Filed: 07/09/17 18:39> Date of Encounter: 07/09/17 Time of Encounter: 18:39 Immediately after Zosyn infusion was initiated the patient developed severe rigors and tachycardia as high as 180. EKG was performed and although the tracing was difficult to interpret it appeared to show SVT. Patient was awake and alert with no evidence of end organ damage. Given the patient's extreme shaking his blood pressure was difficult to obtain. He was able to maintain his mentation. He was placed on a nonrebreather. It was difficult to ascertain whether this was a reaction to the medication or an extreme inflammatory response in the setting of gram-negative bacterial lysis. The infusion was stopped immediately, he was given Benadryl 25 mg, Solu-Medrol 125mg , and Demerol 25 mg. Given the concern for SVT the decision was made to give adenosine. Patient received 6 mg, then 12 mg, and then 12 mg again which slowed his heart rate temporarily but did not break his rhythm. Blood pressure was able to be obtained at this time and is not to be normotensive. He was then given Lopressor 5 mg IV which slowed his heart rate into the 130s and then he was given a second dose which slowed his heart rate to around 100. Repeat EKG was obtained at this time and showed ST elevation in lead V2 which was a new change from this morning. Given this concerning finding the EKG was presented to the medical claims processor who felt this could be indicative of a Brugada's syndrome or ST elevation AR. Given the fact that the patient was not having active chest pain at this time the decision was made to repeat EKG in 20 minutes. Repeat EKG at that time showed persistent ST elevation in lead V2 and possible developing being ST elevation in lead V1 and V3. This again was discussed with medical claims processor who felt that these findings were concerning enough to take the patient to catheter lab to evaluate his coronary arteries. Patient will be having an urgent left heart catheterization this evening. <Trav Ahuja - Last Filed: 07/09/17 19:54> Date of Encounter: 07/09/17 I examined this patient and my medical decision-making was reviewed with the Resident Physician on 07/09/17. I agree with the documented findings, disposition and treatment plan as described except to the extent set forth below. Mr Paulson developed acute rigors following initiation of Zosyn. He became tachycardic and hypoxic. Exam Alert. Rigors Heart reg and tachy Lungs with diffuse wheeze Abd soft Agree with assessment and plan as documented above. Dx: Rigors Tachycardia E coli bacteremia CCM 65min
[2017-07-09 18:57] LABS: Heparin anti-factor XA UFH 0.71 IU/mL (0.30-0.70)
[2017-07-09] MEDS ORDERED: *HR* Bivalirudin 250 MG VIAL IVC ONE (19:01)
[2017-07-09 19:08] LABS: Alanine Aminotransferase 62 Units/L (7-52); Albumin 3.2 g/dL (3.5-5.7); Albumin/Globulin Ratio 1.1 (1.1-2.2); Alkaline Phosphatase 73 Units/L (34-104); Aspartate Amino Transferase 92 Units/L (13-39); Bilirubin,Direct 0.2 mg/dL (0.0-0.2); Bilirubin,Indirect 1.2 mg/dL (0.0-1.2); Bilirubin,Total 1.4 mg/dL (0.3-1.0); Blood Urea Nitrogen 14 mg/dL (8-23); Carbon Dioxide 17 mEq/L (23-29); Chloride 105 mEq/L (98-107); Glucose 227 mg/dL (70-105); Magnesium 1.6 mg/dL (1.6-2.6); Osmolality,Calculated 286 (280-300); Potassium 3.5 mEq/L (3.5-5.1); Sodium 134 mEq/L (136-145); Total Protein 6.2 g/dL (6.4-8.9)
[2017-07-09 19:34] LABS: BUN/Creatinine Ratio 19 (6-26); eGFR For African Americans > 60 (> 60); eGFR For Non-African Americans > 60 (> 60)
--- NOTE | 2017-07-09 19:44 | Event Note ---
Date of Encounter: 07/09/17 Time of Encounter: 19:40 - Cardiology Event Note Called to see patient regarding possible STEMI. After pt received Zosyn, pt developed SVT. Received several doses of adenosine and then eventually HR slowed after IV metoprolol. No strips available for my review at this time. EKG demonstrated ST elevation in V1, V2, V3 changed from admission EKG. Pt denies CP, SOB. Had diaphoresis. Decision was made after discussion with patient to proceed with diagnostic LHC to evaluate for obstructive CAD. All risks/benefits discussed with patient by me. Agreeable to proceed. Further recommendations pending cardiac catheterization.
--- NOTE | 2017-07-09 19:48 | Invasive Diagnostic Lab Proc ---
Name: Idris Paulson Date of Study: 07/09/2017 Date: 1955 Ht: 68.9in Medical Record#: [id number] Age: 62 Wt: 189.60lb Gender: Male BSA: 2.02 Order #: [id number] BMI: 28.08 Physicians Procedure Physician: Taylor Mccoy MD, [facility] Referring MD: Referring MD: Staff Name Position Time In Shaista, Nikunj RN Monitor 07:00 PM Lelo David RN Rehabilitation Counselor 07:00 PM Serina, Lala RT (R) Scrub 07:00 PM Indications Indication Non-Stemi Procedures Performed Procedure L HRT ARTERY/VENTRICLE ANGIO Pre-Procedure Checklist Informed consent is complete signed and on chart. H&P is on chart. ID band is on and ID verified with patient. Patient NPO for procedure The procedure was described for the patient and questions were answered. Blood Pressure: 134/73 ECG is on chart. Rhythm: Sinus Tachycardia Plan of Care Patient will tolerate the procedure without complications. Adequate level of comfort will be maintained. Hemodynamics will remain stable Patient will recover from procedure without complications. Respiratory function will be maintained. Cardiac rhythm will remain stable. Patient temperature will be maintained. Patient and/or family have verbalized understanding of the procedure. Patient Education Chief Complaint/Reason for Test: Cardiac Cath Developmental Category: Adult (18-64 years) Developmentally Appropriate for Age: Yes Learning Barriers: None Education Needs: Procedure Education Method: Verbal Information Taught: Cardiac Cath Educational Evaluation: Able to repeat information Intravenous Access Time IV Size Location DC'd Fluid/Drip Rate Units RN 18g 1 /" Patent On Arrival Lt Antecubital Allergies NKA No Known Allergies Vital Signs Time BP (mmHg) HR (bpm) O2 Sat. RR (bpm) LOC 07:01 PM / % 5 = Fully awake and oriented or at pre-proc level 07:01 PM / % 5 = Fully awake and oriented or at pre-proc level 07:03 PM 127 / 60 102 93 % 22 07:07 PM 128 / 70 101 93 % 23 07:12 PM 122 / 69 103 91 % 23 07:18 PM 122 / 68 104 93 % 22 07:22 PM 122 / 67 103 93 % 16 07:17 PM / % 5 = Fully awake and oriented or at pre-proc level Procedural Medications Time Medication Dose Units Method Given By 07:01 PM Oxygen 2 L/min nasal cannula Nikunj Noonan RN 07:05 PM Lidocaine 2% 13 ml Subcutaneous Taylor Mccoy MD, [facility] ASA Classification: Emergent Procedure: ASA score is assumed Paty Score Preprocedure Postprocedure Activity 2- Moves 4 extremities sustained head lift Activity Circulation 2- SBP +/= 20 points of pre-anesthetic level Circulation Consciousness 2- Awake and alert oriented x 3 Consciousness O2 Saturation 2- Able to maintain O2 satruation of 92% on room air O2 Saturation Respiratory 2- Able to deep breathe and cough well Respiratory Total Score 10 Total Score Contrast Agent: Isovue Diagnostic Contrast: 81 ml Total Contrast: 81 ml Fluoro Dose: 254 mGy Procedure Log Time Note Enter By 07:00 PM Pt arrived to lab head 2 at 19:00 : PM Nikunj Noonan RN Position: Monitor Time in: 19: 07: PM Lelo David RN Position: Rehabilitation Counselor Time in: 19:: PM Lala Smalls RT (R) Position: Scrub Time in: 19: 07: PM Patient charges- Angio tray pack, Navilyst 3mm J, Pulse Oximetry and ACIST tubing and transducer : PM Hair removed from procedure site in procedure lab using clippers. Bilateral groin prepped with Chloraprep by Nikunj Noonan RN, then patient was draped. Skin intact. : PM Physician arrived 19:: PM Meet and greet completed : PM Sign in performed according to hospital policy. : PM Procedure start 19:: PM Time: 19: Patient comfortable and pain free: Yes : PM Time: 19:LOC: 5 = Fully awake and oriented or at pre-proc level : PM Time: 19: Oxygen on at 2 L/min per nasal cannula by Nikunj Noonan RN 07: PM CathStat 07:02 PM Vitals capture started with the following parameters, Patient=Adult, Interval=5 min, Initial Jhyeezel=208 mmHg, Deflation Rate=5 mmHg, Cuff placed on Right Arm 07:02 PM Clinical Presentation: STEMI or equivalent [email or web address] 07:03 PM OH=211 bpm, KHNN=394/60 mmhg, SpO2=93.0 %, Resp=22 B/min, Comment=st 07:04 PM Time out performed according to hospital policy 07:06 PM Time: 19:05 13 ml Lidocaine 2% to right groin Subcutaneous Given by Taylor Mccyo MD, [facility] kkner 07:06 PM Access obtained by percutaneous puncture. 6Fr 10cm Terumo [place] sheath placed in right Femoral artery. [id number] ner 07:06 PM Pressure channel 1 zero failed. 07:07 PM Pressure channel 1 zeroed. 07:07 PM BS=570 bpm, UFYS=748/70 mmhg, SpO2=93.0 %, Resp=23 B/min, Comment=st 07:08 PM 5Fr FL 4 catheter [facility] the [facility] 07:08 PM Recorded Pressure: Ao, EX=532, Condition=Condition 1 (Aorta) Ao 92/75/83 07:08 PM LCA angiography performed in multiple views. 07:10 PM Catheter removed 07:11 PM 5Fr FR 4 catheter inserted over the wire [facility] ner 07:11 PM Recorded Pressure: Ao, CX=332, Condition=Condition 1 (Aorta) Ao 94/81/88 07:11 PM RCA angiography performed in multiple views. 07:12 PM Catheter removed 07:12 PM IU=952 bpm, JGAZ=206/69 mmhg, SpO2=91.0 %, Resp=23 B/min, Comment=st 07:13 PM 5Fr Pigtail catheter inserted over the wire [facility] 07:13 PM Catheter selectively placed in left ventricle 07:13 PM Bolus angiogram of left Ventricle complete: 8 ml/sec for a total of 24 mls 07:13 PM Pressure channel 1 zeroed. 07:14 PM Recorded Pressure: LV, NW=619, Condition=Condition 1 (Left Ventricle) LV 76/35/37 07:14 PM Recorded Pressure: LV, Ao, IE=622, Condition=Condition 1 (Left Ventricle) LV 75/44/47, (Aorta) Ao 84/71/78 07:15 PM Wire removed kkner 07:15 PM Catheter removed kkallner 07:16 PM Time: 19:01 Patient comfortable and pain free: Yes kk 07:17 PM Time: 19:01LOC: 5 = Fully awake and oriented or at pre-proc level kk 07:18 PM GO=593 bpm, JPUS=999/68 mmhg, SpO2=93.0 %, Resp=22 B/min, Comment=st 07:18 PM Bolus angiogram of right Femoral complete: 4 ml/sec for a total of 7 mls 07:19 PM Procedure completed at 19:19 [email or web address] 07:20 PM Coronary Dominance: right kk 07:20 PM Sign out completed: Radiation Dose 254 mGy Fluoro Time: 2.3 Isovue 370 - 200ml contrast 81 ml given by Taylor Mccoy MD, [facility]. Complications: NoneCardiac Rehab Consult needed: NoConfirmed administered medications: Yes 07:22 PM Isovue 370 - 200ml,1 Bottle(s) used. kk 07:22 PM Arterial sheath pulled, Mynx closure device used and was Successful [id number] S/N. 07:22 PM Estimated Blood Loss: minimal 07:22 PM Post ECG Sinus Tachycardia [email or web address] 07:22 PM Post Blood Pressure 122/68 kkallner 07:22 PM IK=867 bpm, YLHU=894/67 mmhg, SpO2=93.0 %, Resp=16 B/min, Comment=st 07:22 PM 19:22 Post Pulses Bilateral DP & PT 2+ kk 07:23 PM Information taught Cardiac Cath and Mynx kkner 07:23 PM Education needs Procedure, Plan of Care, and Responsibilities of Patient in Care :23 PM Learning barriers :None kk:23 PM Education Methods Verbal kk:23 PM Education evaluation Able to repeat information kkner 07:23 PM Site status No bleeding/hematoma - Rt Groin as reported by Sites, Lala RT (R) at 19:23 [email or web address] 07:23 PM Opsite applied kkallner 07:24 PM Plavix, Effient or Brilinta given No kkallner 07:24 PM Delay to floor No kkallner 07:24 PM No family present at this time. kkallner 07:24 PM Complications: None kkner :24 PM Fluoro Time: 2.3 kkallner 07:24 PM Isovue 370 - 200ml contrast 81 ml given by Taylor Mccoy MD, [facility]. kkallner 07:24 PM Radiation Dose 254 mGy kkallner 07:25 PM Did you address TONJA flow and Dominance? Yes kkallner 07:31 PM Time: 19:16 Patient comfortable and pain free: Yes kkallner 07:32 PM Time: 19:17LOC: 5 = Fully awake and oriented or at pre-proc level kkallner 07:32 PM Neuro status unchanged throughout procedure. [email or web address] 07:37 PM Lesion found in LMCA. Pre Stenosis: 40 Pre TONJA Flow: kkallner 07:37 PM Lesion found in Ramus. Pre Stenosis: 70 Pre TONJA Flow: kkallner 07:37 PM Lesion found in Proximal Circumflex. Pre Stenosis: 40 Pre TONJA Flow: kkallner 07:37 PM Lesion found in Proximal LAD. Pre Stenosis: 40 Pre TONJA Flow: kkallner 07:38 PM Lesion found in Proximal RCA. Pre Stenosis: 30 Pre TONJA Flow: kkallner 07:38 PM Lesion found in Mid RCA. Pre Stenosis: 50 Pre TONJA Flow: kkallner 07:38 PM Lesion found in Distal RCA. Pre Stenosis: 30 Pre TONJA Flow: kkallner 07:38 PM Left Main Coronary Artery with 40% stenosis kkallner 07:38 PM Proximal Left Anterior Descending Coronary Artery with 40% stenosis. If graft is supplying this territory, 0 % stenosis. kkallner 07:38 PM Circumflex, Obtuse Marginal, Left Posterior Descending, and Left Posterolateral Coronary Arteries with 40 % stenosis. If graft is supplying this area, 0 % stenosis kkallner 07:38 PM Right Coronary, Right Posterior Descending Arteries with Right Posterolateral and Acute Marginal branches with 50 % stenosis. If graft is supplying this area, 0 % stenosis kkallner 07:38 PM Ramus with 70% stenosis. If graft is supplying this area, 0 % stenosis kkallner 07:39 PM Report given to 2A RN Pt taken to 2A Room #25. 19:39 kkallner 07:40 PM Patient out of room: 19:40 kkallner Complications Complication None None Hemodynamics Pressures Site Systolic/A Wave Diastolic/V Wave Mean AO 92 75 83 AO 94 81 88 LV 76 35 37 LV 75 44 47 AO 84 71 78 Post Procedure Information Blood Pressure: 122/68 mmHg Rhythm: Sinus Tachycardia Post procedural instructions were given Closure Device Time Device Success/Fail 07/09/2017 7:25:00 PM MynxGrip Successful Site Checks Time Location Status Staff Sheath In? Note 07:23 PM Rt Groin No bleeding/hematoma Sites, Lala RT (R) Pulses Time Site Pre-Procedure Post-Procedure Note 7:22:00 PM Bilateral DP & PT 2+ Updated by Nikunj Noonan RN on 07/09/2017 7:42:26 PM electronically signed on 07/09/2017 7:43:09 PM with status of Final
[2017-07-09] MEDS ORDERED: Insulin LISPRO 300 UNITS/3 ML VIAL SQ SCH (21:00)
[2017-07-09] MEDS: Levofloxacin 750 MG/150 ML 750 MG/150 ML BAG IVPB SCH (21:47)
[2017-07-10 04:51] LABS: Basophils % 0.2 %; Eosinophils % 0.1 %; Hematocrit 39.2 % (37.5-50.1); Hemoglobin 13.6 g/dL (12.9-16.9); Immature Granulocytes % 0.8 % (0-4); Lymphocytes # 1.4 K/mcL (0.6-4.6); Lymphocytes % 13.8 %; Mean Corpuscular HGB Conc 34.7 g/dL (31.6-35.5); Mean Corpuscular Hemoglobin 29.9 pg (28.0-33.3); Mean Corpuscular Volume 86.2 fL (83.0-100.0); Mean Platelet Volume 10.2 fL (9.4-12.4); Monocytes # 0.3 K/mcL (0.0-1.3); Monocytes % 3.3 %; Nucleated Red Blood Cells 0.2 /100 WBC (0); Platelet Count 148 K/mcL (140-400); Red Blood Count 4.55 M/mcL (4.19-5.50); Red Cell Distribution Width 13.2 % (11.5-14.5); Segmented Neutrophils % 81.8 %
[2017-07-10] MEDS: *HR* Heparin 5,000 UNIT/ML VIAL SQ SCH ×3 (05:14→21:00)
[2017-07-10 05:20] LABS: BUN/Creatinine Ratio 26 (6-26); Blood Urea Nitrogen 15 mg/dL (8-23); Calcium 8.6 mg/dL (8.6-10.3); Carbon Dioxide 16 mEq/L (23-29); Chloride 103 mEq/L (98-107); Glucose 304 mg/dL (70-105); Magnesium 1.8 mg/dL (1.6-2.6); Osmolality,Calculated 282 (280-300); Potassium 4.5 mEq/L (3.5-5.1); Sodium 130 mEq/L (136-145); eGFR For African Americans > 60 (> 60); eGFR For Non-African Americans > 60 (> 60)
[2017-07-10] MEDS ORDERED: Perflutren Lipid Microsphere 1.3 ML in 0.9 % Sodium Chloride 8.7 ML IVP ONE (07:55)
[2017-07-10] MEDS ORDERED: Azithromycin 250 MG TABLET PO SCH (09:00)
[2017-07-10] MEDS: Aspirin 81 MG TAB.CHEW PO SCH (09:12)
[2017-07-10] MEDS: Insulin LISPRO 300 UNITS/3 ML VIAL SQ SCH ×4 (09:12→21:15)
--- NOTE | 2017-07-10 09:37 | Internal Med Progress Note ---
<Rufus Sauceda - Last Filed: 07/10/17 09:35> Date of Encounter: 07/10/17 Time of Encounter: 09:35 - Assessment and plan (1) Severe sepsis Current Visit: Yes Status: Acute Assessment and plan: Secondary to Escherichia coli bacteremia. Patient presented with fever, mild leukocytosis, tachycardia with positive blood culture for Escherichia coli. Lactic acidosis was 3.6 on presentation, this has normalized. Source of his Escherichia coli bacteremia is unclear at this time. Patient was initially started on Zithromax on presentation, this was discontinued and when blood cultures came back positive for Escherichia coli he was started on Zosyn. Shortly after starting Zosyn infusion the patient had an episode of rigors with SVT so this was discontinued. Patient was switched to Levaquin. Repeat blood cultures are pending. Infectious disease has been consulted. (2) Bacteremia Current Visit: Yes Status: Acute Assessment and plan: Blood cultures positive for Escherichia coli. Source unclear as discussed above. Urine culture is pending, checking echocardiogram, if persistent bacteremia can consider DAVID. Patient only has 2 minor Marquez criteria with fever and positive blood cultures with an organism that is not typical for endocarditis. Continue Levaquin. Repeat blood cultures pending. (3) Supraventricular tachycardia Current Visit: Yes Status: Acute Assessment and plan: Patient had an episode of SVT immediately after Zosyn infusion was started. Infusion was stopped and patient received adenosine 6 mg, 12 mg, 12 mg without successful conversion of his rhythm. Patient was then given Lopressor 5 mg 2 which slowed his heart rate into a sinus tachycardia with a rate right around 100. This is likely driven by the patient's underlying infection. Cardiology has been consulted. (4) Takotsubo cardiomyopathy Current Visit: Yes Status: Acute Assessment and plan: Immediately following the patient's episode of SVT as discussed above repeat EKG showed ST elevation in leads V1, V2, and V3. Patient was taken urgently to the catheter lab in revealed mild coronary artery disease but no culprit lesion for his ST elevation. EF was found to be depressed so his ST elevation is thought to be related to a Takotsubo cardiomyopathy. Patient has no clinical signs or symptoms of heart failure. Echocardiogram is pending. Continue beta savanah and lisinopril. Cardiology has been consulted. (5) Abdominal aneurysm Current Visit: No Status: Chronic Assessment and plan: CTA abdomen shows progression of the patient's abdominal aneurysm that now measures 5.3 cm x 5.5 cm. No evidence of rupture both clinically and radiographically. Follow-up with vascular surgery as an outpatient. (6) Essential hypertension Current Visit: No Status: Chronic Assessment and plan: Blood pressure had been under adequate control however patient did have an elevated blood pressure this morning. We will continue to monitor the patient remains persistently hypertensive we will titrate up beta savanah/MENG inhibitor. (7) Diabetes mellitus Current Visit: No Status: Acute Assessment and plan: Blood sugars have been elevated since presentation. Recent A1c in May shows an A1c of 7.4%. Continue with sliding scale insulin, will increase to high-dose sliding scale insulin. We will continue to monitor and adjust insulin regimen based on patient's blood sugars. Qualifiers: Diabetes mellitus type: type 2 Diabetes mellitus complication status: without complication Diabetes mellitus snf insulin use: without snf use Qualified Code(s): E11.9 - Type 2 diabetes mellitus without complications (8) History of stroke Current Visit: Yes Status: Acute Assessment and plan: Stable. No new deficits. - Subjective Interval history: Patient seen and examined at bedside. Patient states that he feels pretty good today. He has no specific complaints. He denies fever, chest pain, shortness of breath, cough, abdominal pain, nausea, vomiting, dysuria. - Constitutional Vitals: Temp Pulse Resp BP Pulse Ox 97.9 F 87 18 168/93 95 07/10/17 09:03 07/10/17 09:03 07/10/17 09:03 07/10/17 09:03 07/10/17 09:03 General appearance: Present: A&O X 3, pleasant, no acute distress, answers questions appropriately - Respiratory Respiratory exam: Present: CTAB. Absent: rales, rhonchi, wheezes - Cardiovascular Cardiovascular exam: Present: RRR. Absent: gallop, rubs, systolic murmur - GI/Abdominal GI/Abdominal exam: Present: normal bowel sounds, soft. Absent: distended, tenderness - Extremities Exam Extremities exam: Present: warm. Absent: pedal edema, tenderness - Neurological Exam Neurological exam: Present: alert, oriented X3, speech deficit (Dysarthria, chronic) Additional comments: Chronic right-sided weakness. Internal Medicine: Result - Labs CBC & Chem 7: 07/10/17 04:39 07/10/17 04:39 Labs: Short CBC 07/09/17 07/10/17 Range/Units 18:08 04:39 WBC 9.7 9.8 (4.3-11.1) K/mcL Hgb 13.4 13.6 (12.9-16.9) g/dL Hct 38.8 39.2 (37.5-50.1) % Plt Count 135 L 148 (140-400) K/mcL Neutrophils # 7.9 8.0 (1.6-8.9) K/mcL BMP 07/09/17 07/10/17 18:08 04:39 Sodium 134 L 130 L Potassium 3.5 4.5 D Chloride 105 103 Carbon Dioxide 17 L 16 L BUN 14 15 Creatinine 0.75 0.58 L Glucose 227 H 304 H Calcium 8.0 L 8.6 Cardiac Enzymes 07/09/17 07/09/17 Range/Units 10:50 18:08 Troponin I 0.03 0.33 H* (< 0.04) ng/mL Liver Function 07/09/17 Range/Units 18:08 Total Bilirubin 1.4 H (0.3-1.0) mg/dL Direct Bilirubin 0.2 (0.0-0.2) mg/dL AST 92 H (13-39) Units/L ALT 62 H (7-52) Units/L Alkaline Phosphatase 73 (34-104) Units/L Albumin 3.2 L (3.5-5.7) g/dL - ABG Interpretation ABG results: PT/INR, D-dimer PT 14.4 Seconds (9.4-12.1) H 07/09/17 18:08 Consult Discharge Plan - Plan Referrals: Radha Newell MD [Primary Care Provider] - <Trav Ahuja - Last Filed: 07/10/17 17:46> Date of Encounter: 07/10/17 - Assessment and plan (1) Sepsis Current Visit: Yes Status: Acute Qualifiers: Sepsis type: Escherichia coli Qualified Code(s): A41.51 - Sepsis due to Escherichia coli [E. coli] (2) Severe sepsis Current Visit: Yes Status: Acute (3) Bacteremia, escherichia coli Current Visit: Yes Status: Acute (4) Hypertension Current Visit: Yes Status: Chronic Qualifiers: Hypertension type: essential hypertension Qualified Code(s): I10 - Essential (primary) hypertension (5) Takotsubo cardiomyopathy Current Visit: Yes Status: Suspected (6) Systolic heart failure Current Visit: Yes Status: Chronic Assessment and plan: on MENG and BB Qualifiers: Heart failure chronicity: chronic Qualified Code(s): I50.22 - Chronic systolic (congestive) heart failure (7) Diabetes mellitus Current Visit: No Status: Acute Qualifiers: Diabetes mellitus type: type 2 Diabetes mellitus complication status: with hyperglycemia Diabetes mellitus buttermaker helper insulin use: without buttermaker helper use Qualified Code(s): E11.65 - Type 2 diabetes mellitus with hyperglycemia - Constitutional Vitals: Temp Pulse Resp BP Pulse Ox 97.9 F 67 16 110/70 97 07/10/17 14:54 07/10/17 14:54 07/10/17 14:54 07/10/17 14:54 07/10/17 14:54 Internal Medicine: Result - Labs CBC & Chem 7: 07/10/17 04:39 07/10/17 04:39 Labs: Short CBC 07/09/17 07/10/17 Range/Units 18:08 04:39 WBC 9.7 9.8 (4.3-11.1) K/mcL Hgb 13.4 13.6 (12.9-16.9) g/dL Hct 38.8 39.2 (37.5-50.1) % Plt Count 135 L 148 (140-400) K/mcL Neutrophils # 7.9 8.0 (1.6-8.9) K/mcL BMP 07/09/17 07/10/17 18:08 04:39 Sodium 134 L 130 L Potassium 3.5 4.5 D Chloride 105 103 Carbon Dioxide 17 L 16 L BUN 14 15 Creatinine 0.75 0.58 L Glucose 227 H 304 H Calcium 8.0 L 8.6 Cardiac Enzymes 07/09/17 Range/Units 18:08 Troponin I 0.33 H* (< 0.04) ng/mL Liver Function 07/09/17 Range/Units 18:08 Total Bilirubin 1.4 H (0.3-1.0) mg/dL Direct Bilirubin 0.2 (0.0-0.2) mg/dL AST 92 H (13-39) Units/L ALT 62 H (7-52) Units/L Alkaline Phosphatase 73 (34-104) Units/L Albumin 3.2 L (3.5-5.7) g/dL Urine 07/10/17 Range/Units 15:56 Urine Color Yellow (Yellow) Urine Clarity Clear (Clear) Urine pH 6.0 (5.0-8.0) pH Units Ur Specific [place] > 1.030 H (1.010-1.025) Urine Protein 30 H (Neg-Trace) mg/dL Urine Glucose (UA) >=1000 H (Normal) mg/dL - ABG Interpretation ABG results: PT/INR, D-dimer PT 14.4 Seconds (9.4-12.1) H 07/09/17 18:08 - Impressions Impressions Echocardiogram 07/10/17 15:08 Impressions: LVEF 35-40%. Segmental left ventricular systolic dysfunction. Mild left ventricular diastolic dysfunction. Normal right ventricular structure and function. No evidence of pulmonary hypertension. No significant valvular dysfunction. No vegetations visualized. Repeat study or consider DAVID as clinically indicated. Left Ventricular Wall Motion: Rest Echo Findings The apex, apical inferior, apical anterior, mid anterior, apical septal, mid inferior septal, apical lateral, mid anterior lateral and mid anterior septal angel were hypokinetic. All other wall segments showed normal motion. Findings: Study Quality * Technically adequate exam. ECG Findings * Normal sinus rhythm. Left Ventricle * LVEF 35-40%. * Segmental left ventricular systolic dysfunction. * Normal LV chamber size and wall thickness. * Mild left ventricular diastolic dysfunction. Right Ventricle * Normal right ventricular structure and function. Left Atrium * Mildly dilated left atrium. Right Atrium * Normal right atrial size. Interatrial Septum * Interatrial septum not well evaluated. Aortic Valve * Trileaflet aortic valve with normal function. * No aortic regurgitation. * No aortic stenosis. Mitral Valve * Normal mitral valve structure and function. * No mitral regurgitation. * No mitral stenosis. Tricuspid Valve * Normal tricuspid valve structure and function. * Trace tricuspid regurgitation. * No evidence of pulmonary hypertension. Pulmonic Valve * Normal pulmonic valve structure and function. * No pulmonic regurgitation. Aorta * Normally sized aortic root. Pericardium * The pericardium appears normal. IVC * Normal IVC dimensions and inspiratory collapse. Pulmonary Artery * Normal visualized portions of the main pulmonary artery. - Attending Attestation I examined this patient and my medical decision-making was reviewed with the Resident Physician on 07/10/17. I agree with the documented findings, disposition and treatment plan as described except to the extent set forth below. Mr Paulson is currently admitted for sepsis related to E coli bacteremia. He remains moderate to high risk due to potential for worsening clinical status. Mr Paulson is feeling better today. He has no CP. Events of last night reviewed with him. No further fever. Exam Alert Comfortable up in chair. Mucus membranes dry Heart reg No wheeze Abd soft I/P 1. Sepsis related to E coli bacteremia 2. Prior CVA Further diagnoses and plan as above
--- NOTE | 2017-07-10 10:04 | Infectious Disease Consult ---
Date of Encounter: 07/10/17 Time of Encounter: 09:05 Assessment and Plan (1) Severe sepsis Status: Acute Assessment and plan: 3 SIRS criteria present at admission: Fever, tachycardia, leukocytosis Causative organism Escherichia coli Blood cultures on 07/08/17 are positive 1/2 for Escherichia coli Patient had lactic acid of 3.6 and elevated troponin 0.05 Source unclear, but suspect bladder/UTI (2) Bacteremia, escherichia coli Status: Acute Assessment and plan: Source not clear, suspect from bladder/UTI CT abdomen shows thickening of bladder wall, but negative for other intra- abdominal processes UA performed was grossly contaminated Recommend repeat UA with culture We will repeat blood cultures Continue Levaquin, given patient had SVT yesterday monitor closely for QT prolongation If UA negative consider upper respiratory track or possible neck abscess as additional source (3) Bladder wall thickening Status: Acute Assessment and plan: Thickened bladder wall seen on CT abdomen UA not suggestive of UTI Plan as above (4) Allergy to antibiotic Status: Acute Assessment and plan: Suspect possible Zosyn allergy Patient appeared to have reaction to Zosyn Developed rigors and SVT immediately upon administration of Zosyn May need evaluation for penicillin allergy prior to discharge or as outpatient (5) Takotsubo cardiomyopathy Status: Acute Assessment and plan: Patient developed SVT with different elevation of 0.33 After resolution of SVT with adenosine and metoprolol, patient seemed to have ST segment elevation in leads V1 through V3 Cardiology was consulted and patient underwent catheterization on 07/09/17 Three-vessel disease was seen, but sets were not warranted Possible Takotsubo cardiomyopathy Continue management per cardiology and primary team (6) Symptoms of upper respiratory infection (URI) Status: Acute Assessment and plan: Patient saw PCP on 07/08/17 for URI-like symptoms Reports no URI-like symptoms currently Patient appears to have neck fullness Considers additional cause of bacteremia if no other source identified (7) Abdominal aneurysm Status: Chronic Assessment and plan: Redemonstrated on CT abdomen performed on 07/08/17 Appears slightly larger than before Continue management per primary team (8) Diabetes mellitus Status: Acute Assessment and plan: Continue management per primary team Qualifiers: Diabetes mellitus type: type 2 Diabetes mellitus complication status: without complication Diabetes mellitus penitentiary insulin use: without intermission coordinator use Qualified Code(s): E11.9 - Type 2 diabetes mellitus without complications (9) Proteinuria Status: Acute Assessment and plan: Significant proteinuria >1000 seen on UA Specimen was grossly contaminated Patient does have history of diabetes mellitus We will obtain additional UA Qualifiers: Proteinuria type: unspecified Qualified Code(s): R80.9 - Proteinuria, unspecified (10) History of stroke Status: Acute Assessment and plan: Residual right-sided weakness/paralysis Residual dysarthria with word finding Infectious Disease HPI - Data of Consult Patient: new to practice Consult date: 07/10/17 Requesting Physician: Trav Ahuja DO Primary Care Provider: Radha Newell - Consult Narrative Reason for consult: E. coli bacteremia History of present illness: Mr. Paulson is a 62 year old male with past medical history is significant for prior CVA) with right-sided weakness and dysarthria), diabetes mellitus, hypertension, and several renal abdominal aortic aneurysm was referred to [facility] on 07/09/17 by his PCP after abnormal findings found on chest x-ray and lab work. Infectious disease was consulted on 07/10/17 due to Escherichia coli bacteremia. Patient is not the best historian so much of the history was taken from chart review. Patient account his PCP on 07/08/17 with complaints of fever, cough, and congestion. According to the documentation from his PCP he had been having fever, cough, and congestion for 2 weeks prior. A d-dimer and chest x-ray were ordered and patient was started on cefdinir. His d-dimer was 4900 and chest x- ray revealed a 13 mm nodular opacity in the left lower lobe that appeared somewhat spiculated. After results were obtained the patient was called and referred to the emergency department. In the emergency department he was found to be severely septic with a temperature of 102.3, tachycardia with heart rate of 119 and a have elevated white blood cell count. She is found to have elevated lactic acid 3.6 as well as an elevation of his troponin 0.05. He was seen to have normal renal function but had greater than 1000 protein and glucose as well as hyaline casts in his urine (although this was grossly contaminated). A CT performed showed no evidence of pulmonary embolism there appeared to be no evidence of pulmonary nodules. A CT of his abdomen was obtained which showed a slightly worsened AAA as well as a thickened wall of his bladder. Blood cultures were drawn and the patient was given IV fluids. At this time he was started on azithromycin for his septic appearing presentation, but no obvious source was seen at that time. Blood cultures revealed Escherichia coli and patient was given Zosyn. Immediately after administration of Zosyn patient developed rigors and SVT. After initial treatment with adenosine patient heart rate improved with metoprolol. Unfortunately, his post SVT EKG showed new ST segment elevations in leads V1 through V3. Cardiology was consulted and patient underwent a catheterization on 07/09/17. This showed triple-vessel disease that did not require stenting, moderate segmental left ventricle dysfunction of 40%, and possible Takotsubo cardiomyopathy. Following the reaction to Zosyn, patient had been switched to levofloxacin therapy and tolerating without problem. The patient reports that she has been having a fever for 2 days prior to presentation to his PCP and reports having no other symptoms and was seen this morning patient does not have any concerns/complaints. He denies having any fevers, chills, shortness of breath, chest pain, abdominal pain, diarrhea, constipation, dysuria, flank pain, hematuria, sore throat, cavities, mouth sores , or swelling. CC: Trav Ahuja, DO Past Med Surg Social Fam HX - Past Medical History Medical history: aortic aneurysm, CVA, hyperlipidemia, hypertension, other Psychiatric history: depression - Social History Smoking Status: Former smoker Smokeless Tobacco Status: No Alcohol use: none Drug use: none Infectious Disease-CN:Meds Aspirin [Lo-Dose Aspirin EC] 81 mg PO DAILY 05/20/16 [History] Clopidogrel [Plavix] 75 mg PO DAILY 05/20/16 [History] metFORMIN [Glucophage] 500 mg PO BIDWM #60 tablet 05/23/16 [Rx] Pravastatin Sodium [Pravachol] 80 mg PO QPM 07/09/17 [History] 3 Allergy/AdvReac Type Severity Reaction Status Date / Time piperacillin [From Zosyn] AdvReac Severe Shakiness Verified 07/09/17 19:54 tazobactam [From Zosyn] AdvReac Severe Shakiness Verified 07/09/17 19:54 Review of systems: Gen: Denies fever, denies chills, reports chronic right-sided weakness, denies fatigue CV: Denies chest pain, denies palpitations Resp: Denies shortness of breath, denies dyspnea, denies coughing, denies changes in phlegm production GI: Denies nausea, denies vomiting, denies abdominal pain, denies constipation, denies diarrhea, denies hematochezia MSK: denies arthralgia, denies muscle weakness Neuro: Denies headache, denies confusion, reports chronic, right-sided focal weakness, denies numbness, denies tingling, denies vision changes Skin: Denies bruising, denies rash : Denies flank pain, denies dysuria, denies hematuria Exam - Constitutional Vitals: Temp Pulse Resp BP Pulse Ox 97.9 F 87 18 168/93 95 07/10/17 09:03 07/10/17 09:03 07/10/17 09:03 07/10/17 09:03 07/10/17 09:03 - Additional findings Additional findings: General: Cooperative, pleasant, no acute distress, alert and oriented 3, answers questions appropriately, chronic dysarthria with word finding from prior CVA HEENT: Normocephalic, atraumatic, neck supple, trachea midline, slightly increased fullness in the anterior neck, Conjunctiva pink, sclera anicteric, oral mucosa moist, no orophargeal erythema or exudates, no dental abscesses or oral sores seen Respiratory: No accessory muscle usage, clear to auscultation bilaterally, no wheezes/rhonchi/rales appreciated Cardiovascular: Regular rate and rhythm, S1 and S2 present, no murmurs/rubs/ gallops/clicks appreciated GI/abdominal: Nondistended, nontender, soft, normal bowel sounds, no peritoneal signs Extremities: No calf tenderness, noncyanotic, no pedal edema appreciated, warm, lower extremity pulses palpable and symmetrical Neurological: Alert and oriented 3, chronic right-sided weakness Skin: Dry, intact, normal color Infectious Disease CN: Results - Labs CBC & Chem 7: 07/10/17 04:39 07/10/17 04:39 Serology: Serology 07/09/17 Range/Units 09:00 Chlamy pneumoniae PCR Not Detected (Not Detect) Adenovirus (PCR) Not Detected (Not Detect) B. pertussis DNA (PCR) Not Detected (Not Detect) B.parapertussis DNA PCR Not Detected (Not Detect) Coronavirus OC43 (PCR) Not Detected (Not Detect) Coronavirus HKU1 (PCR) Not Detected (Not Detect) Coronavirus 229E (PCR) Not Detected (Not Detect) Coronavirus NL63 (PCR) Not Detected (Not Detect) Human Metapneumovir PCR Not Detected (Not Detect) Influenza A (H1) PCR Not Detected (Not Detect) Influ A (H1N1/09) PCR Not Detected (Not Detect) Influenza A (H3) PCR Not Detected (Not Detect) Influenza A Untype (PCR) Not Detected (Not Detect) Influenza Type B (PCR) Not Detected (Not Detect) M.pneumoniae DNA (PCR) Not Detected (Not Detect) Parainfluenza 1 (PCR) Not Detected (Not Detect) Parainfluenza 2 (PCR) Not Detected (Not Detect) Parainfluenza 3 (PCR) Not Detected (Not Detect) Parainfluenza 4 (PCR) Not Detected (Not Detect) RSV (PCR) Not Detected (Not Detect) Entero/Rhino (PCR) Not Detected (Not Detect) Consult Discharge Plan - Plan Referrals: Radha Newell MD [Primary Care Provider] - - Attending Attestation I examined this patient and my medical decision-making was reviewed with the Resident Physician. I agree with the documented findings, disposition and treatment plan as described except to the extent set forth below. Assessment addendum to original report dictated by resident physician. Please refer to Dr. Monique note for full details. Patient is 62-year-old gentleman with past medical history mentioned below including diabetes mellitus, hypertension, dyslipidemia, history of CVA with residual right-sided weakness and dysarthria and abdominal aortic aneurysm that has been progressively larger came in to [place] on 07/09/2017 from home referred by his PCP for abnormal d-dimer and chest x-ray. Patient apparently has been having fullness in his neck for 2-3 days prior to seeing his PCP for URI-like symptoms. The PCPs note mentions that the patient was having cough and congestion and fever that has been going on for 2 weeks. Patient tells me it was a different story and I t patient was evaluated by the PCP a chest x-ray was done and a d-dimer was ordered. The chest x-ray revealed hink the patient is a poor historian. A 13 mm nodular opacity within left lower lobe that appears somewhat somewhat spiculated. Patients d-dimer was also elevated at 4900. Since arrival to the ED, patient was febrile with tmax of 102.4F, tachycardic, with leukocytosis and neutrophilic predominance and lactic acidosis of 3.6. influenza antigen and influenza PCR both came back negative. CT chest was negative for a PE, CT abdomen revealed an AAA is slightly larger with thickened wall of the bladder. Pt was started on azithromycin initially followed by blood cultures positive for E coli. Patient was given zosyn, post infusion patien had rigors and developed SVTs and ST elevation DC. Patient was taken to [facility] where he had an angioplasty. Pt currently switched to levofloxacin, fever subsided and he states he feels unchanged. Totally negative ROS for abdominal issues or urinary issues Physicial exam is negative for URI symptoms, no sinus tenderness on palpation. No oral lesions, no neck masses. Lungs sounds OK, no wheezing or ronchi. No heart murmur. A/p: 1-Severe sepsis a.3 SIRS criteria associated with lactic acidosis and end organ damage (heart ) 2-E coli bacteremia a.Source not clear. Most likely cystitis related? Other sources less likely. CT abdomen negative. No signs of diverticulitis or intra abdominal issues. b.Repeat u/a and urine culture with good specimen collection c.Continue Levaquin, watch closely for Q-T prolongation d.Repeat blood cultures 3-Thickening bladder wall per CT abdomen 4-Possible zosyn allergy, may need pcn allergy eval prior to discharge or as outpatient 5-Acute DC 6-URI symptoms 7-AAA 8-DM A1C 6.9 9-History of CVA with residual right sided weakness and 10-proteinuria with hyalin casts
--- NOTE | 2017-07-10 10:25 | Cardiology Consult Note ---
<Suri Omer Susan - Last Filed: 07/10/17 11:45> Date of Encounter: 07/10/17 Time of Encounter: 10:00 Assessment and Plan (1) Systolic dysfunction Current Visit: Yes Status: Acute ST changes s/p IV zosyn infusion concern for STEMI. Interventionalist, Dr. Taylor Mccoy, reviewed felt not to be STEMI--see event noted. LHC 07/09/17--non-obstructive CAD, no intervention recommended. EF 40%, possible Takotsubo cardiomyopathy. TTE 07/10/17: LVEF 35-40%, segemental LV systolic dysfunction, no vegetations visualized, mild LVDD. Clinically appears euvolemic upon exam. Continue betablocker, ACEi. At this time, no further inpatient recommendations. Recommend close outpatient follow-up with [facility], will coordinate appt. (2) Febrile illness Current Visit: Yes Status: Acute Hospitalist, ID following. (3) Severe sepsis Current Visit: Yes Status: Acute ID consulted and following. Source unclear, suspect urinary/bladder per ID notes. (4) Supraventricular tachycardia Current Visit: Yes Status: Acute SVT s/p infusion Zosyn. s/p LHC, no intervention warranted. No recurrence noted overnight. Discussion w patient/family: The assessment and plan as outlined above was discussed with the patient and/or family members who expressed understanding and agreement. All questions were answered. Thank you for involving us in the care of your patient. Please call with any questions. The patient will be discussed and reviewed with Dr. Magallon; changes to be made accordingly. History of Present Illness Consult date: 07/10/17 Requesting physician: Trav Ahuja Consult reason: Abnormal ECG Chief complaint: Abnormal labs, fever History of present illness: Mr. Paulson is a 62 year old male PMHx of stroke with residual right sided weakness, HTN, diabetes, abdominal aortic aneurysm who presented to [facility] after his PCP called and instructed him to go to the ED due to abnormal labs. Patient initially saw PCP for fevers and cold/flu like symptoms. Ddimer was elevated and also noted to have a spiculated lesion in the left lower lobe of the lungs. Tmax since inpatient 102.3. Blood cultures positive for enterobacter, E.Coli. He was started on IV Zosyn yesterday and then developed SVT with concern for ST elevation. Out of precaution, patient was taken to the tender labor which demonstrated non-obstructive CAD, he was noted to have lesions up to 70% stenosis, however no intervention was warranted, EF per LV gram was 40%-- possible takotsubo cardiomyopathy. Past Med Surg Social Fam HX - Past Medical History Attestation: Yes The following information was validated with the patient. Source: patient Medical history: aortic aneurysm, coronary artery disease, CVA, hyperlipidemia, hypertension Psychiatric history: depression - Social History Smoking Status: Former smoker Smokeless Tobacco Status: No Alcohol use: none Drug use: none Medications and Allergies Aspirin [Lo-Dose Aspirin EC] 81 mg PO DAILY 05/20/16 [History] Clopidogrel [Plavix] 75 mg PO DAILY 05/20/16 [History] metFORMIN [Glucophage] 500 mg PO BIDWM #60 tablet 05/23/16 [Rx] Pravastatin Sodium [Pravachol] 80 mg PO QPM 07/09/17 [History] 3 Allergy/AdvReac Type Severity Reaction Status Date / Time piperacillin [From Zosyn] AdvReac Severe Shakiness Verified 07/09/17 19:54 tazobactam [From Zosyn] AdvReac Severe Shakiness Verified 07/09/17 19:54 All Systems Review: The remainder of the systems were reviewed and are negative - Cardiovascular Cardiovascular: as per HPI Physical Examination Vital Signs, Last 4 Hours Temp Pulse Resp BP Pulse Ox 07/10/17 09:03 97.9 F 87 18 168/93 95 General: Conversant (expressive aphasia) Cardiac: Reg Rate and Rhythm, Normal S1 and S2 Lungs: Normal Breath Sounds Neuro: Alert and responsive, Other (residual right-sided weakness) Abdomen: Soft Skin: No rashes noted on visualized skin Musculoskeletal: No Chest Wall Tenderness Extremities: No Edema, Normal Pulses Results 07/10/17 04:39 07/10/17 04:39 Lab Results 07/09/17 07/09/17 07/09/17 10:50 18:08 18:08 WBC 9.7 Hgb 13.4 Hct 38.8 Plt Count 135 L INR APTT Sodium Potassium Chloride Carbon Dioxide BUN Creatinine Glucose Calcium Magnesium Total Bilirubin AST ALT Alkaline Phosphatase Troponin I 0.03 0.33 H* 07/09/17 07/09/17 07/10/17 18:08 18:08 04:39 WBC 9.8 Hgb 13.6 Hct 39.2 Plt Count 148 INR 1.3 APTT 113.9 H* Sodium 134 L Potassium 3.5 Chloride 105 Carbon Dioxide 17 L BUN 14 Creatinine 0.75 Glucose 227 H Calcium 8.0 L Magnesium 1.6 Total Bilirubin 1.4 H AST 92 H ALT 62 H Alkaline Phosphatase 73 Troponin I 07/10/17 04:39 WBC Hgb Hct Plt Count INR APTT Sodium 130 L Potassium 4.5 D Chloride 103 Carbon Dioxide 16 L BUN 15 Creatinine 0.58 L Glucose 304 H Calcium 8.6 Magnesium 1.8 Total Bilirubin AST ALT Alkaline Phosphatase Troponin I Active Medications Aspirin (Aspirin) 81 mg PO DAILY [facility] Stop: 01/09/18 09:01 Last Admin: 07/10/17 09:12 Dose: 81 mg Carvedilol (Coreg) 6.25 mg PO BIDWM [facility] PRN Reason: Protocol Stop: 01/09/18 08:01 Last Admin: 07/10/17 09:12 Dose: 6.25 mg Dextrose/Water (Dextrose 50% (Syg)) 25 ml IVP AD PRN PRN Reason: Hypoglycemia Stop: 01/08/18 03:58 Glucagon (Glucagen) 1 mg IM ONCE PRN PRN Reason: Hypoglycemia Stop: 01/08/18 03:58 Glucose (Gluctose) 15 gm PO ONCE PRN PRN Reason: Hypoglycemia Stop: 01/08/18 03:58 Glucose (Gluctose) 30 gm PO ONCE PRN PRN Reason: Hypoglycemia Stop: 01/08/18 03:58 Heparin Sodium (Porcine) (Heparin) 5,000 unit SQ Q8HCO [facility] Stop: 01/08/18 06:01 Last Admin: 07/10/17 05:14 Dose: 5,000 unit Sodium Chloride (0.9 % Sodium Chloride) 1,000 mls @ 100 mls/hr IVC .Q10H [facility] Stop: 01/08/18 04:01 Last Admin: 07/09/17 04:10 Dose: 100 mls/hr Dextrose (Dextrose 5%) 1,000 mls @ 100 mls/hr IVC .Q10H PRN PRN Reason: HYPOGLYCEMIA Stop: 01/08/18 03:58 Levofloxacin/Dextrose (Levaquin Premix 750mg/150 Ml) 750 mg in 150 mls @ 100 mls/hr IVPB Q24H [facility] PRN Reason: Protocol Stop: 01/08/18 21:01 Last Admin: 07/09/17 21:47 Dose: 100 mls/hr Insulin Human Lispro (Humalog) 0 units SQ HS [facility] PRN Reason: Protocol Stop: 01/08/18 21:01 Insulin Human Lispro (Humalog) 0 units SQ TIDAC [facility] PRN Reason: Protocol Stop: 01/08/18 07:31 Lisinopril (Zestril) 2.5 mg PO DAILY [facility] PRN Reason: Protocol Stop: 01/09/18 09:01 Last Admin: 07/10/17 09:11 Dose: 2.5 mg Naloxone HCl (Narcan) 0.4 mg IVP Q2MIN PRN PRN Reason: SEE COMMENTS Stop: 01/08/18 04:27 - Imaging and Cardiology Echo: report reviewed Cardiac cath: report reviewed Other Results: 12 hour tele: avg HR=85 SR. No significant event noted. - EKG Interpretation EKG results cardiology: personally reviewed Consult Discharge Plan - Plan Referrals: Radha Newell MD [Primary Care Provider] - <SheritaKira - Last Filed: 07/10/17 17:15> Date of Encounter: 07/10/17 - Attending Attestation I examined this patient and my medical decision-making was reviewed with the MEDICATION RECONCILIATION TECHNICIAN. I agree with the documented findings, disposition and treatment plan as described. Mr. Paulson presented with gram negative sepsis of unclear etiology, thought possibly secondary to UTI. He developed SVT yesterday per primary service ( data not available for review) and treated with adenosine. ECG notably different in V1-V3 from baseline with ST elevation in lead V2. Out of concern for ACS patient was taken to the tender labor which demonstrated non-obstructive CAD without acute findings. LVEF 35-40% by echo thought possibly secondary to a non-ischemic cause. Recommend medical management - asa, BB, ACEI. Patient appears euvolemic. Patient otherwise has clinically improved. He appears well today and is feeling better. He remains afebrile and WBCs have normalized. No indication for DAVID at this time. Will defer management to Infectious disease team. We will sign off at this time. Recommend outpatient follow up. Please call with questions. Assessment and Plan Discussion w patient/family: The assessment and plan as outlined above was discussed with the patient and/or family members who expressed understanding and agreement. All questions were answered. Thank you for involving us in the care of your patient. Please call with any questions. History of Present Illness History of present illness: Mr. Paulson is a 62 year old male All Systems Review: The remainder of the systems were reviewed and are negative Physical Examination Vital Signs, Last 4 Hours Temp Pulse Resp BP Pulse Ox 07/10/17 14:54 97.9 F 67 16 110/70 97 Results 07/10/17 04:39 07/10/17 04:39 Lab Results 07/09/17 07/09/17 07/09/17 18:08 18:08 18:08 WBC 9.7 Hgb 13.4 Hct 38.8 Plt Count 135 L INR 1.3 APTT 113.9 H* Sodium Potassium Chloride Carbon Dioxide BUN Creatinine Glucose Calcium Magnesium Total Bilirubin AST ALT Alkaline Phosphatase Troponin I 0.33 H* 07/09/17 07/10/17 07/10/17 18:08 04:39 04:39 WBC 9.8 Hgb 13.6 Hct 39.2 Plt Count 148 INR APTT Sodium 134 L 130 L Potassium 3.5 4.5 D Chloride 105 103 Carbon Dioxide 17 L 16 L BUN 14 15 Creatinine 0.75 0.58 L Glucose 227 H 304 H Calcium 8.0 L 8.6 Magnesium 1.6 1.8 Total Bilirubin 1.4 H AST 92 H ALT 62 H Alkaline Phosphatase 73 Troponin I
[2017-07-10 16:29] LABS: Bilirubin,Urine Negative (Negative); Blood,Urine Small (Negative); Clarity,Urine Clear (Clear); Color,Urine Yellow (Yellow); Glucose,Urine (UA) >=1000 mg/dL (Normal); Ketones,Urine 15 mg/dL (Negative); Leukocyte Esterase,Urine Negative (Negative); Nitrite,Urine Negative (Negative); Protein,Urine 30 mg/dL (Neg-Trace); Specific Gravity,Urine > 1.030 (1.010-1.025); Urobilinogen,Urine Normal (Normal)
[2017-07-10 16:30] LABS: Bacteria,Urine None Seen per hpf (None-Few); Hyaline Casts,Urine None Seen per lpf (None-Few); Squamous Epithelial Cell,Urine Moderate per lpf (None-Few); WBC,Urine 0-3 per hpf (0-3)
--- NOTE | 2017-07-10 19:43 | Electrocardiograph Report ---
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
--- NOTE | 2017-07-10 19:45 | Electrocardiograph Report ---
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
--- NOTE | 2017-07-10 19:46 | Electrocardiograph Report ---
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
[2017-07-10] MEDS: Levofloxacin 750 MG/150 ML 750 MG/150 ML BAG IVPB SCH (20:59)
[2017-07-11 04:51] LABS: Basophils % 0.3 %; Eosinophils # 0.1 K/mcL (0.0-0.6); Eosinophils % 0.7 %; Hematocrit 35.8 % (37.5-50.1); Hemoglobin 12.3 g/dL (12.9-16.9); Immature Granulocytes % 0.5 % (0-4); Lymphocytes # 2.9 K/mcL (0.6-4.6); Lymphocytes % 31.7 %; Mean Corpuscular HGB Conc 34.4 g/dL (31.6-35.5); Mean Corpuscular Hemoglobin 29.7 pg (28.0-33.3); Mean Corpuscular Volume 86.5 fL (83.0-100.0); Mean Platelet Volume 10.2 fL (9.4-12.4); Monocytes # 0.4 K/mcL (0.0-1.3); Monocytes % 4.8 %; Neutrophils # 5.6 K/mcL (1.6-8.9); Platelet Count 160 K/mcL (140-400); Red Blood Count 4.14 M/mcL (4.19-5.50); Red Cell Distribution Width 13.2 % (11.5-14.5)
[2017-07-11 05:10] LABS: BUN/Creatinine Ratio 27 (6-26); Blood Urea Nitrogen 18 mg/dL (8-23); Calcium 8.6 mg/dL (8.6-10.3); Carbon Dioxide 24 mEq/L (23-29); Chloride 102 mEq/L (98-107); Glucose 254 mg/dL (70-105); Magnesium 1.6 mg/dL (1.6-2.6); Osmolality,Calculated 289 (280-300); Potassium 3.4 mEq/L (3.5-5.1); Sodium 134 mEq/L (136-145); eGFR For African Americans > 60 (> 60); eGFR For Non-African Americans > 60 (> 60)
[2017-07-11] MEDS: *HR* Heparin 5,000 UNIT/ML VIAL SQ SCH ×2 (06:03→15:34)
[2017-07-11] MEDS: Aspirin 81 MG TAB.CHEW PO SCH (07:57)
[2017-07-11] MEDS: Insulin LISPRO 300 UNITS/3 ML VIAL SQ SCH ×4 (07:58→21:17)
--- NOTE | 2017-07-11 08:05 | Infectious Disease Progress No ---
Date of Encounter: 07/11/17 Time of Encounter: 07:55 - Assessment and Plan (1) Severe sepsis Current Visit: Yes Status: Acute 3 SIRS criteria present at admission: Fever, tachycardia, leukocytosis Now resolved 0 SIRS criteria present currently Causative organism Escherichia coli Blood cultures on 07/08/17 are positive 2/2 for Escherichia coli Patient had lactic acid of 3.6 and elevated troponin 0.05 Source unclear currently (2) Bacteremia, escherichia coli Current Visit: Yes Status: Acute Source not clear CT abdomen shows thickening of bladder wall, but negative for other intra- abdominal processes Repeat UA performed yesterday shows improvement from previous, much less proteinuria present, but continued significant medical glucose, some ketones, blood, and RBCs, with no casts and only moderate contamination Urine culture from 07/09/17 shows no growth Continue Levaquin, given patient had SVT monitor closely for QT prolongation If urine culture is still negative tomorrow, can switch to PO for an additional 10 days ID will sign off, please reconsult if needed (3) Bladder wall thickening Current Visit: Yes Status: Acute Thickened bladder wall seen on CT abdomen UA not suggestive of UTI Plan as above (4) Allergy to antibiotic Current Visit: Yes Status: Acute Suspect possible Zosyn allergy Patient appeared to have reaction to Zosyn Developed rigors and SVT immediately upon administration of Zosyn May need evaluation for penicillin allergy prior to discharge or as outpatient (5) Takotsubo cardiomyopathy Current Visit: Yes Status: Suspected Patient developed SVT with troponin elevation of 0.33 After resolution of SVT with adenosine and metoprolol, patient seemed to have ST segment elevation in leads V1 through V3 Cardiology was consulted and patient underwent catheterization on 07/09/17 Three-vessel disease was seen, but sets were not warranted Possible Takotsubo cardiomyopathy Continue management per cardiology and primary team (6) Symptoms of upper respiratory infection (URI) Current Visit: Yes Status: Acute Patient saw PCP on 07/08/17 for URI-like symptoms Reports no URI-like symptoms currently Patient appears to have neck fullness Considers additional cause of bacteremia if no other source identified (7) Abdominal aneurysm Current Visit: No Status: Chronic Redemonstrated AAA on CT abdomen performed on 07/08/17 Appears slightly larger than before Continue management per primary team (8) Diabetes mellitus Current Visit: No Status: Acute Continue management per primary team Qualifiers: Diabetes mellitus type: type 2 Diabetes mellitus complication status: with hyperglycemia Diabetes mellitus terminologist insulin use: without terminologist use Qualified Code(s): E11.65 - Type 2 diabetes mellitus with hyperglycemia (9) Proteinuria Current Visit: Yes Status: Acute Significant proteinuria >1000 seen on 1st UA (that was grossly contaminated) Second UA showed proteinuria of 30 (only moderately contaminated) Patient does have history of diabetes mellitus which could be causing proteinuria Qualifiers: Proteinuria type: unspecified Qualified Code(s): R80.9 - Proteinuria, unspecified (10) History of stroke Current Visit: Yes Status: Acute Residual right-sided weakness/paralysis Residual dysarthria with word finding - Subjective Interval history: Patient reports feeling well today. He has no concerns/complaints. He denies having fever, chills, shortness of breath, chest pain, pain in his joints, anorexia, nausea, constipation, diarrhea, new rashes, lightheadedness, or dizziness. Patient has been afebrile, vital signs stable, and no leukocytosis seen today. Infect Dis PN-Objective Data - Labs CBC & Chem 7: 07/11/17 04:17 07/11/17 04:17 Labs: Laboratory Results - last 24 hr 07/10/17 07/10/17 07/10/17 08:57 08:59 11:21 WBC RBC Hgb Hct MCV MCH MCHC RDW Plt Count MPV Immature Gran % Seg Neutrophils % Lymphocytes % Monocytes % Eosinophils % Basophils % Neutrophils # Lymphocytes # Monocytes # Eosinophils # Basophils # Sodium Potassium Chloride Carbon Dioxide BUN Creatinine Est GFR ( Amer) Est GFR (Non-Af Amer) BUN/Creatinine Ratio Glucose POC Glucose 390 H 275 H Calculated Osmolality Lactic Acid 1.8 Calcium Magnesium Urine Color Urine Clarity Urine pH Ur Specific [place] Urine Protein Urine Glucose (UA) Urine Ketones Urine Blood Urine Nitrite Urine Bilirubin Urine Urobilinogen Ur Leukocyte Esterase Urine Microscopic RBC Urine Microscopic WBC Ur Squamous Epith Cells Urine Bacteria Hyaline Casts Ur Culture Indicated? 07/10/17 07/10/17 07/10/17 15:33 15:56 21:13 WBC RBC Hgb Hct MCV MCH MCHC RDW Plt Count MPV Immature Gran % Seg Neutrophils % Lymphocytes % Monocytes % Eosinophils % Basophils % Neutrophils # Lymphocytes # Monocytes # Eosinophils # Basophils # Sodium Potassium Chloride Carbon Dioxide BUN Creatinine Est GFR ( Amer) Est GFR (Non-Af Amer) BUN/Creatinine Ratio Glucose POC Glucose 257 H 235 H Calculated Osmolality Lactic Acid Calcium Magnesium Urine Color Yellow Urine Clarity Clear Urine pH 6.0 Ur Specific [place] > 1.030 H Urine Protein 30 H Urine Glucose (UA) >=1000 H Urine Ketones 15 H Urine Blood Small H Urine Nitrite Negative Urine Bilirubin Negative Urine Urobilinogen Normal Ur Leukocyte Esterase Negative Urine Microscopic RBC 3-5 H Urine Microscopic WBC 0-3 Ur Squamous Epith Cells Moderate H Urine Bacteria None Seen Hyaline Casts None Seen Ur Culture Indicated? NO 07/11/17 07/11/17 04:17 04:17 WBC 9.1 RBC 4.14 L Hgb 12.3 L Hct 35.8 L MCV 86.5 MCH 29.7 MCHC 34.4 RDW 13.2 Plt Count 160 MPV 10.2 Immature Gran % 0.5 Seg Neutrophils % 62.0 Lymphocytes % 31.7 Monocytes % 4.8 Eosinophils % 0.7 Basophils % 0.3 Neutrophils # 5.6 Lymphocytes # 2.9 Monocytes # 0.4 Eosinophils # 0.1 Basophils # 0.0 Sodium 134 L Potassium 3.4 L Chloride 102 Carbon Dioxide 24 BUN 18 Creatinine 0.66 L Est GFR ( Amer) > 60 Est GFR (Non-Af Amer) > 60 BUN/Creatinine Ratio 27 H Glucose 254 H POC Glucose Calculated Osmolality 289 Lactic Acid Calcium 8.6 Magnesium 1.6 Urine Color Urine Clarity Urine pH Ur Specific [place] Urine Protein Urine Glucose (UA) Urine Ketones Urine Blood Urine Nitrite Urine Bilirubin Urine Urobilinogen Ur Leukocyte Esterase Urine Microscopic RBC Urine Microscopic WBC Ur Squamous Epith Cells Urine Bacteria Hyaline Casts Ur Culture Indicated? Cultures: Cultures 07/09/17 16:45 Urine Culture - Final Urine,Clean Catch No growth. Serology 07/10/17 07/09/17 Range/Units 15:56 09:00 Urine Color Yellow (Yellow) Urine Clarity Clear (Clear) Urine pH 6.0 (5.0-8.0) pH Units Ur Specific [place] > 1.030 H (1.010-1.025) Urine Protein 30 H (Neg-Trace) mg/dL Urine Glucose (UA) >=1000 H (Normal) mg/dL Urine Ketones 15 H (Negative) mg/dL Urine Blood Small H (Negative) Urine Nitrite Negative (Negative) Urine Bilirubin Negative (Negative) Urine Urobilinogen Normal (Normal) mg/dL Ur Leukocyte Esterase Negative (Negative) Urine Microscopic RBC 3-5 H (0-3) per hpf Urine Microscopic WBC 0-3 (0-3) per hpf Ur Squamous Epith Cells Moderate H (None-Few) per lpf Urine Bacteria None Seen (None-Few) per hpf Hyaline Casts None Seen (None-Few) per lpf Ur Culture Indicated? NO (NO) Chlamy pneumoniae PCR Not Detected (Not Detect) Adenovirus (PCR) Not Detected (Not Detect) B. pertussis DNA (PCR) Not Detected (Not Detect) B.parapertussis DNA PCR Not Detected (Not Detect) Coronavirus OC43 (PCR) Not Detected (Not Detect) Coronavirus HKU1 (PCR) Not Detected (Not Detect) Coronavirus 229E (PCR) Not Detected (Not Detect) Coronavirus NL63 (PCR) Not Detected (Not Detect) Human Metapneumovir PCR Not Detected (Not Detect) Influenza A (H1) PCR Not Detected (Not Detect) Influ A (H1N1/09) PCR Not Detected (Not Detect) Influenza A (H3) PCR Not Detected (Not Detect) Influenza A Untype (PCR) Not Detected (Not Detect) Influenza Type B (PCR) Not Detected (Not Detect) M.pneumoniae DNA (PCR) Not Detected (Not Detect) Parainfluenza 1 (PCR) Not Detected (Not Detect) Parainfluenza 2 (PCR) Not Detected (Not Detect) Parainfluenza 3 (PCR) Not Detected (Not Detect) Parainfluenza 4 (PCR) Not Detected (Not Detect) RSV (PCR) Not Detected (Not Detect) Entero/Rhino (PCR) Not Detected (Not Detect) - Impressions Impressions Echocardiogram 07/10/17 15:08 Impressions: LVEF 35-40%. Segmental left ventricular systolic dysfunction. Mild left ventricular diastolic dysfunction. Normal right ventricular structure and function. No evidence of pulmonary hypertension. No significant valvular dysfunction. No vegetations visualized. Repeat study or consider DAVID as clinically indicated. Left Ventricular Wall Motion: Rest Echo Findings The apex, apical inferior, apical anterior, mid anterior, apical septal, mid inferior septal, apical lateral, mid anterior lateral and mid anterior septal angel were hypokinetic. All other wall segments showed normal motion. Findings: Study Quality * Technically adequate exam. ECG Findings * Normal sinus rhythm. Left Ventricle * LVEF 35-40%. * Segmental left ventricular systolic dysfunction. * Normal LV chamber size and wall thickness. * Mild left ventricular diastolic dysfunction. Right Ventricle * Normal right ventricular structure and function. Left Atrium * Mildly dilated left atrium. Right Atrium * Normal right atrial size. Interatrial Septum * Interatrial septum not well evaluated. Aortic Valve * Trileaflet aortic valve with normal function. * No aortic regurgitation. * No aortic stenosis. Mitral Valve * Normal mitral valve structure and function. * No mitral regurgitation. * No mitral stenosis. Tricuspid Valve * Normal tricuspid valve structure and function. * Trace tricuspid regurgitation. * No evidence of pulmonary hypertension. Pulmonic Valve * Normal pulmonic valve structure and function. * No pulmonic regurgitation. Aorta * Normally sized aortic root. Pericardium * The pericardium appears normal. IVC * Normal IVC dimensions and inspiratory collapse. Pulmonary Artery * Normal visualized portions of the main pulmonary artery. Exam - Constitutional Vitals: Temp Pulse Resp BP Pulse Ox 98.4 F 65 18 108/63 94 07/11/17 07:37 07/11/17 07:37 07/11/17 07:37 07/11/17 07:37 07/11/17 07:37 - Additional findings Additional findings: Gen: Denies fever, denies chills, reports chronic right-sided weakness, denies fatigue CV: Denies chest pain, denies palpitations Resp: Denies shortness of breath, denies dyspnea, denies coughing, denies changes in phlegm production GI: Denies nausea, denies vomiting, denies abdominal pain, denies constipation, denies diarrhea MSK: denies arthralgia, denies muscle weakness Neuro: Denies headache, denies confusion, reports chronic, right-sided focal weakness, denies numbness, denies tingling, denies vision changes Skin: Denies bruising, denies rash : Denies flank pain, denies dysuria, denies hematuria Consult Discharge Plan - Plan Referrals: Radha Newell MD [Primary Care Provider] - 07/19/17 1:45 pm (Please follow up as schedule) - Attending Attestation I examined this patient and my medical decision-making was reviewed with the Resident Physician. I agree with the documented findings, disposition and treatment plan as described except to the extent set forth below.
--- NOTE | 2017-07-11 13:45 | Internal Med Progress Note ---
Addendum entered and electronically signed by DavonteYo DO Ashley 15:58: Consult initially placed to Dr. Vásquez, Retail Support Specialist. Spoke to Dr. Vásquez, she took patient's information and said that they would call patient Saturday to set up outpatient follow up and penicillin allergy test if needed. Consult cancelled. Addendum entered and electronically signed by ArauzYo DO Ashley 14:14: Monitoring Hgb as it is at its lowest of 12.3, was 14.8 on admission. Original Note: <Yo Arauz Ashley - Last Filed: 07/11/17 13:42> Date of Encounter: 07/11/17 Time of Encounter: 10:15 - Assessment and plan (1) Severe sepsis Current Visit: Yes Status: Acute Assessment and plan: Secondary to Escherichia coli bacteremia. Patient presented with fever, mild leukocytosis, tachycardia with positive blood culture for Escherichia coli. Lactic acidosis was 3.6 on presentation, this has normalized. Source of his Escherichia coli bacteremia is unclear at this time. Patient was initially started on Zithromax on presentation, this was discontinued and when blood cultures came back positive for Escherichia coli he was started on Zosyn. Shortly after starting Zosyn infusion the patient had an episode of rigors with SVT so this was discontinued. Patient was switched to Levaquin. Repeat blood cultures are pending-prelim without growth, Likely will continue to monitor until blood culture has no growth at 48 hours. Infectious disease following, appreciate their recommendation for discharge and outpatient antibiotics. (2) Bacteremia Current Visit: Yes Status: Acute Assessment and plan: Blood cultures positive for Escherichia coli. Source unclear as discussed above. Urine culture is pending, checking echocardiogram, if persistent bacteremia can consider DAVID. Patient only has 2 minor Marquez criteria with fever and positive blood cultures with an organism that is not typical for endocarditis. Continue Levaquin. Repeat blood cultures pending. Echocardiogram Impression: LVEF 35-40%. Segmental left ventricular systolic dysfunction. Mild left ventricular diastolic dysfunction. Normal right ventricular structure and function. No evidence of pulmonary hypertension. No significant valvular dysfunction. No vegetations visualized. Repeat study or consider DAVID as clinically indicated. (3) Takotsubo cardiomyopathy Current Visit: Yes Status: Suspected Assessment and plan: Immediately following the patient's episode of SVT on 07/09/17 as discussed above repeat EKG showed ST elevation in leads V1, V2, and V3. ST changes s/p IV zosyn infusion concern for STEMI. Interventionalist, Dr. Taylor Mccoy, reviewed felt not to be STEMI--see event noted. [facility] 07/09/17--non-obstructive CAD, no intervention recommended. EF 40%, possible Takotsubo cardiomyopathy. TTE 07/10/17: LVEF 35-40%, segemental LV systolic dysfunction, no vegetations visualized, mild LVDD. Continue beta savanah and lisinopril. Cardiology consulted, recommending outpatient follow up. (4) Supraventricular tachycardia Current Visit: Yes Status: Acute Assessment and plan: Patient had an episode of SVT immediately after Zosyn infusion was started. Infusion was stopped and patient received adenosine 6 mg, 12 mg, 12 mg without successful conversion of his rhythm. Patient was then given Lopressor 5 mg 2 which slowed his heart rate into a sinus tachycardia with a rate right around 100. This is likely driven by the patient's underlying infection. Cardiology was consulted, recommending outpatient f/u. (5) Abdominal aneurysm Current Visit: No Status: Chronic Assessment and plan: CTA abdomen shows progression of the patient's abdominal aneurysm that now measures 5.3 cm x 5.5 cm. No evidence of rupture both clinically and radiographically. Follow-up with vascular surgery as an outpatient. (6) Diabetes mellitus Current Visit: No Status: Acute Assessment and plan: Blood sugars have been elevated since presentation. Recent A1c in May shows an A1c of 7.4%. Continue with sliding scale insulin, will increase to high-dose sliding scale insulin. We will continue to monitor and adjust insulin regimen based on patient's blood sugars. Consider the addition of basal insulin vs restarting home metformin. Qualifiers: Diabetes mellitus type: type 2 Diabetes mellitus complication status: with hyperglycemia Diabetes mellitus custodial insulin use: without custodial use Qualified Code(s): E11.65 - Type 2 diabetes mellitus with hyperglycemia (7) Essential hypertension Current Visit: No Status: Chronic Assessment and plan: Blood pressure had been under adequate control however patient did have an elevated blood pressure this morning. We will continue to monitor the patient remains persistently hypertensive we will titrate up beta savanah/MENG inhibitor. (8) History of stroke Current Visit: Yes Status: Acute Assessment and plan: Stable. No new deficits. (9) Hypokalemia Current Visit: No Status: Acute Assessment and plan: mild at 3.4, may need replacement. Continue to monitor. (10) Hyponatremia Current Visit: No Status: Acute Assessment and plan: improving Na 128>>130>134 - Subjective Interval history: Patient seen and examined sitting up on the side of his bed, has no concerns or complaints currently. Denies any acute distress, denies chest pain, dyspnea, abdominal pain. Patient afebrile, vitals stable. Leukocytosis resolved. - Constitutional Vitals: Temp Pulse Resp BP Pulse Ox 98.0 F 65 20 109/62 96 07/11/17 11:18 07/11/17 11:18 07/11/17 11:18 07/11/17 11:18 07/11/17 11:18 General appearance: Present: cooperative, A&O X 3, pleasant, no acute distress, answers questions appropriately - Head Head exam: Present: atraumatic, normocephalic - Eye Eye exam: Present: conjuntiva pink, sclera anicteric - Neck Neck exam general surgery: Present: full ROM, supple - Respiratory Respiratory exam: Present: CTAB. Absent: accessory muscle use, rales, rhonchi, wheezes - Cardiovascular Cardiovascular exam: Present: RRR, +S1, +S2. Absent: diastolic murmur, gallop, rubs, systolic murmur - GI/Abdominal GI/Abdominal exam: Present: normal bowel sounds, soft, no peritoneal signs. Absent: distended, tenderness - Extremities Exam Extremities exam: Present: warm. Absent: calf tenderness, cyanotic, pedal edema - Neurological Exam Neurological exam: Present: alert, oriented X3, no focal deficits, speech deficit (dysarthria, chronic) Additional comments: chronic right sided weakness. - Skin Skin exam: Present: dry, intact Internal Medicine: Result - Labs CBC & Chem 7: 07/11/17 04:17 07/11/17 04:17 Labs: Short CBC 07/11/17 Range/Units 04:17 WBC 9.1 (4.3-11.1) K/mcL Hgb 12.3 L (12.9-16.9) g/dL Hct 35.8 L (37.5-50.1) % Plt Count 160 (140-400) K/mcL Neutrophils # 5.6 (1.6-8.9) K/mcL BMP 07/11/17 04:17 Sodium 134 L Potassium 3.4 L Chloride 102 Carbon Dioxide 24 BUN 18 Creatinine 0.66 L Glucose 254 H Calcium 8.6 Urine 07/10/17 Range/Units 15:56 Urine Color Yellow (Yellow) Urine Clarity Clear (Clear) Urine pH 6.0 (5.0-8.0) pH Units Ur Specific [place] > 1.030 H (1.010-1.025) Urine Protein 30 H (Neg-Trace) mg/dL Urine Glucose (UA) >=1000 H (Normal) mg/dL - ABG Interpretation ABG results: PT/INR, D-dimer PT 14.4 Seconds (9.4-12.1) H 07/09/17 18:08 Consult Discharge Plan - Plan Referrals: Radha Newell MD [Primary Care Provider] - 07/19/17 1:45 pm (Please follow up as schedule) <Trav Ahuja - Last Filed: 07/11/17 18:51> Date of Encounter: 07/11/17 - Assessment and plan (1) Sepsis Current Visit: Yes Status: Acute Qualifiers: Sepsis type: Escherichia coli Qualified Code(s): A41.51 - Sepsis due to Escherichia coli [E. coli] (2) Severe sepsis Current Visit: Yes Status: Resolved (3) Bacteremia, escherichia coli Current Visit: Yes Status: Acute (4) Hypertension Current Visit: Yes Status: Chronic Qualifiers: Hypertension type: essential hypertension Qualified Code(s): I10 - Essential (primary) hypertension (5) Takotsubo cardiomyopathy Current Visit: Yes Status: Suspected (6) Systolic heart failure Current Visit: Yes Status: Chronic Qualifiers: Heart failure chronicity: chronic Qualified Code(s): I50.22 - Chronic systolic (congestive) heart failure (7) Diabetes mellitus Current Visit: No Status: Acute Qualifiers: Diabetes mellitus type: type 2 Diabetes mellitus complication status: with hyperglycemia Diabetes mellitus custodial insulin use: without termite renewal inspector use Qualified Code(s): E11.65 - Type 2 diabetes mellitus with hyperglycemia - Constitutional Vitals: Temp Pulse Resp BP Pulse Ox 97.6 F 72 16 118/68 95 07/11/17 18:46 07/11/17 18:46 07/11/17 18:46 07/11/17 18:46 07/11/17 18:46 Internal Medicine: Result - Labs CBC & Chem 7: 07/11/17 04:17 07/11/17 04:17 Labs: Short CBC 07/11/17 Range/Units 04:17 WBC 9.1 (4.3-11.1) K/mcL Hgb 12.3 L (12.9-16.9) g/dL Hct 35.8 L (37.5-50.1) % Plt Count 160 (140-400) K/mcL Neutrophils # 5.6 (1.6-8.9) K/mcL BMP 07/11/17 04:17 Sodium 134 L Potassium 3.4 L Chloride 102 Carbon Dioxide 24 BUN 18 Creatinine 0.66 L Glucose 254 H Calcium 8.6 - ABG Interpretation ABG results: PT/INR, D-dimer PT 14.4 Seconds (9.4-12.1) H 07/09/17 18:08 - Attending Attestation I examined this patient and my medical decision-making was reviewed with the Resident Physician on 07/11/17. I agree with the documented findings, disposition and treatment plan as described except to the extent set forth below. Mr. Paulson is currently admitted for acute E coli bacteremia. He remains moderate to high risk due to potential for worsening clinical status. Mr Paulson is feeling OK. No CP or SOB. Cultures pending. Tolerating current abx. Exam alert Comfortable Mucus membranes dry Heart reg No wheeze I/P 1. E coli bacteremia 2. CVA history Further diagnoses and plan as above.
[2017-07-11] MEDS: Levofloxacin 750 MG/150 ML 750 MG/150 ML BAG IVPB SCH (19:46)
[2017-07-11] MEDS ORDERED: Insulin DETEMIR 100 UNIT/ML X5UNITS SQ SCH (21:00)
[2017-07-12] MEDS: *HR* Heparin 5,000 UNIT/ML VIAL SQ SCH ×2 (01:03→05:47)
[2017-07-12 04:17] LABS: Basophils # 0.1 K/mcL (0.0-0.2); Basophils % 0.6 %; Eosinophils # 0.2 K/mcL (0.0-0.6); Eosinophils % 2.1 %; Hemoglobin 13.2 g/dL (12.9-16.9); Lymphocytes # 3.1 K/mcL (0.6-4.6); Lymphocytes % 34.8 %; Mean Corpuscular HGB Conc 33.8 g/dL (31.6-35.5); Mean Corpuscular Hemoglobin 29.7 pg (28.0-33.3); Mean Corpuscular Volume 87.6 fL (83.0-100.0); Mean Platelet Volume 9.9 fL (9.4-12.4); Monocytes # 0.6 K/mcL (0.0-1.3); Neutrophils # 4.9 K/mcL (1.6-8.9); Nucleated Red Blood Cells 0.2 /100 WBC (0); Platelet Count 181 K/mcL (140-400); Red Blood Count 4.45 M/mcL (4.19-5.50); Red Cell Distribution Width 13.1 % (11.5-14.5); Segmented Neutrophils % 54.5 %
[2017-07-12 04:41] LABS: BUN/Creatinine Ratio 23 (6-26); Blood Urea Nitrogen 15 mg/dL (8-23); Calcium 8.6 mg/dL (8.6-10.3); Carbon Dioxide 25 mEq/L (23-29); Chloride 100 mEq/L (98-107); Glucose 173 mg/dL (70-105); Magnesium 1.6 mg/dL (1.6-2.6); Osmolality,Calculated 285 (280-300); Potassium 3.2 mEq/L (3.5-5.1); Sodium 135 mEq/L (136-145); eGFR For African Americans > 60 (> 60); eGFR For Non-African Americans > 60 (> 60)
[2017-07-12] MEDS: Aspirin 81 MG TAB.CHEW PO SCH (08:10)
[2017-07-12] MEDS: Insulin LISPRO 300 UNITS/3 ML VIAL SQ SCH (08:10)
--- NOTE | 2017-07-12 10:59 | Discharge Summary ---
<Yo Arauz - Last Filed: 07/12/17 12:26> - NOTES TO OUTPATIENT PROVIDER Notes to Outpatient Provider: Admitted for E. Coli bacteremia; patient discharged with 10 days of levaquin. Patient states he has not been taking Plavix. Patient had ST elevation, thought to be Takotsubo cardiomyopathy. Now on coreg and lisinopril. Orders not resulted at time of discharge: Pending orders 07/09/17 15:05 Culture,Blood [BC] Routine 07/10/17 10:47 Urine Protein Creat Ratio Halma [UCHEM] Routine 07/10/17 12:07 Culture,Blood,Additional [BC] Routine 07/13/17 04:00 Basic Metabolic Panel AM 0400 Complete Blood Count [HEME] AM 0400 Magnesium AM 0400 07/14/17 04:00 Basic Metabolic Panel AM 0400 Complete Blood Count [HEME] AM 0400 Magnesium AM 0400 Date of Encounter: 07/12/17 Time of Encounter: 10:00 - Discharge Diagnosis (1) Severe sepsis Priority: Primary Status: Resolved (2) Bacteremia Priority: Secondary Status: Acute (3) Takotsubo cardiomyopathy Priority: Secondary Status: Suspected (4) Supraventricular tachycardia Priority: Secondary Status: Acute (5) Abdominal aneurysm Priority: Secondary Status: Chronic (6) Diabetes mellitus Priority: Secondary Status: Chronic Qualifiers: Diabetes mellitus type: type 2 Diabetes mellitus screener and blender insulin use: without residential use Diabetes mellitus complication status: with hyperglycemia Qualified Code(s): E11.65 - Type 2 diabetes mellitus with hyperglycemia (7) Essential hypertension Priority: Secondary Status: Chronic (8) History of stroke Priority: Secondary Status: Acute (9) Hypokalemia Priority: Secondary Status: Acute (10) Hyponatremia Priority: Secondary Status: Acute Hospital course: Mr. Paulson is a 62 year old male admitted for sepsis with bacteremia. PMHx of stroke with residual right sided weakness, HTN, diabetes, abdominal aortic aneurysm who presented to [facility] after primary care clinic called and instructed him to go to the ED due to abnormal labs. His d-dimer was 4900 and chest x-ray showed a spiculated lesion in the left lower lobe of the lungs. They were concerned there was a PE. He originally went to his PCP due to cold like symptoms that were present for about 3 days. He reports improvement of the cold like symptoms he only has a fever now. The patient denied chest pain, palpitations, shortness of breath, wheezing, cough, abdominal pain, nausea, vomiting, abdominal pain, dysuria, hematuria, lower extremity pain. In the ED he was febrile, tachycardic, lactic acid 3.6. Hyperglycemia 344. Hypokalemia 3.2. The patient was given 2 IVF boluses and aspirin. Blood cultures were taken. Chest CTA ruled out PE. CT abdomen demonstrated increase in abdominal aortic aneurysm size. Blood cultures positive for E. coli; patient was started on Zosyn for the bacteremia, however, patient developed severe rigors and tachycardia as high as 180. EKG was performed and although the tracing was difficult to interpret it appeared to show SVT. It was difficult to ascertain whether this was a reaction to the medication or an extreme inflammatory response in the setting of gram- negative bacterial lysis. The infusion was stopped immediately, he was given Benadryl 25 mg, Solu-Medrol 125mg, and Demerol 25 mg. Given the concern for SVT the decision was made to give adenosine. Patient received 6 mg, then 12 mg , and then 12 mg again which slowed his heart rate temporarily but did not break his rhythm. Blood pressure was able to be obtained at this time and is not to be normotensive. He was then given Lopressor 5 mg IV which slowed his heart rate into the 130s and then he was given a second dose which slowed his heart rate to around 100. Repeat EKG was obtained at this time and showed ST elevation in lead V1,V2,V3 which was a new change from this morning. Given this concerning finding the EKG was presented to the marine services technician who felt this could be indicative of a Brugada's syndrome or ST elevation CA. Patient was taken urgently to the catheter lab. C 07/09/17--non-obstructive CAD , no intervention recommended. EF 40%, possible Takotsubo cardiomyopathy. TTE 07/10/17: LVEF 35-40%, segemental LV systolic dysfunction, no vegetations visualized , mild LVDD. Infectious Disease consulted, patient was switched to Levaquin, clinically patient returned to baseline, afebrile, no distress. Preliminary repeat blood cultures negative and final urine culture negative. Patient states he is ready to go home, ID recommended transition to PO levaquin for 10 more days. Patient to be set up with vascular f/u for AAA, Geometrician f/u for possible zosyn/penicillin allergy, Cardiology for cardiomyopathy, and primary care provider. Of note, patient required basal and SSI while inpatient, home dose of metformin was increased prior to discharge, recommend patient follow up closely with PCP. Discharge discussed with: patient, nurse - Time Spent with Patient Total time spent providing and/or coordinating discharge services: Greater than 30 minutes (45 mins) - Discharge Medications Prescriptions: Aspirin [Lo-Dose Aspirin EC] 81 mg PO DAILY #30 tablet. Carvedilol [Coreg] 6.25 mg PO BIDWM #60 tablet levoFLOXacin [Levaquin] 750 mg PO DAILY #10 tablet Lisinopril [Zestril] 2.5 mg PO DAILY #30 tablet metFORMIN [Glucophage] 1,000 mg PO BIDWM #60 tablet Home Medications: Pravastatin Sodium [Pravachol] 80 mg PO QPM 07/09/17 [History] Aspirin [Lo-Dose Aspirin EC] 81 mg PO DAILY #30 tablet. 07/12/17 [Rx] Carvedilol [Coreg] 6.25 mg PO BIDWM #60 tablet 07/12/17 [Rx] Lisinopril [Zestril] 2.5 mg PO DAILY #30 tablet 07/12/17 [Rx] levoFLOXacin [Levaquin] 750 mg PO DAILY #10 tablet 07/12/17 [Rx] metFORMIN [Glucophage] 1,000 mg PO BIDWM #60 tablet 07/12/17 [Rx] Allergies/Adverse Reactions: 3 Allergy/AdvReac Type Severity Reaction Status Date / Time piperacillin [From Zosyn] AdvReac Severe Shakiness Verified 07/09/17 19:54 tazobactam [From Zosyn] AdvReac Severe Shakiness Verified 07/09/17 19:54 Date of admission: 07/09/17 06:40 Primary care physician: Radha Newell Consults: 07/09/17 18:32 Consult to Cardiology [CONS] Routine Comment: Consulting Provider: [facility] [place] Reason for Consult: SVT/?STEMI Call Completed: Yes 07/10/17 08:09 Consult to Infectious Diseases [CONS] Routine Consulting Provider: Infectious [facility] [place] Reason for Consult: Bacteremia Time Notified: 08:10 Call Completed: Yes Discharging clinician: Trav Ahuja Anticipated date of discharge: 07/12/17 - Constitutional Vitals: Temp Pulse Resp BP Pulse Ox 98.3 F 75 16 103/70 95 07/12/17 07:24 07/12/17 07:24 07/12/17 07:24 07/12/17 07:24 07/12/17 08:20 General appearance: Present: cooperative, A&O X 3, pleasant, no acute distress, answers questions appropriately - Head Head exam: Present: atraumatic, normocephalic - Eye Eye exam: Present: conjuntiva pink, sclera anicteric - Neck Neck exam general surgery: Present: full ROM, supple - Respiratory Respiratory exam: Present: CTAB. Absent: accessory muscle use, rales, rhonchi, wheezes - Cardiovascular Cardiovascular exam: Present: RRR, +S1, +S2. Absent: diastolic murmur, gallop, rubs, systolic murmur - GI/Abdominal GI/Abdominal exam: Present: normal bowel sounds, soft, no peritoneal signs. Absent: distended, tenderness - Extremities Exam Extremities exam: Present: warm. Absent: calf tenderness, cyanotic, pedal edema - Neurological Exam Neurological exam: Present: alert, oriented X3, no focal deficits. Absent: facial droop, speech deficit Additional comments: chronic right sided weakness - Skin Skin exam: Present: dry, intact - Patient Status Disposition: Home, Self-Care Condition: Fair Functional capacity at discharge: independent ambulation Overall status at discharge: patient is back to baseline - Ambulatory Orders Ambulatory Orders: Basic Metabolic Panel [CHEM] Time Frame: 07/17/17, Facility: [facility], Location: Lab Complete Blood Count [HEME] Time Frame: 07/17/17, Facility: [facility], Location: Lab - Discharge Instructions Instructions: Lisinopril (By mouth), Aspirin (By mouth), Metformin (By mouth), Levofloxacin (By mouth), Carvedilol (By mouth) Follow Up With: [facility] [Provider Group] (knotter will call for an appointment) Penny Vásquez MD [Partnered Physician] - Adalid North MD [Partnered Physician] - Radha Newell MD [Primary Care Provider] - 07/19/17 1:45 pm (Please follow up as schedule) Additional Instructions: Please keep follow up appointments: 1. Primary Care Provider- Dr. Newell- follow up in the next 5-7 days 2. Vascular Surgery- Dr. North- follow up within 2 weeks. 3. Geometrician- Dr. Vásquez- follow up in 1-2 weeks 4. Cardiology- follow up in 1-2 weeks. Please pay close attention to your medications, as you now have the addition of lisinopril and coreg; also 10 more days of antibiotic (levaquin). Please return or seek medical care if you delevlop new or worsening symptoms such as chest pain, shortness of breath, confusion, etc. - Diet and Activity Activity: increase activity as tolerated Diet: advance to your usual diet <Trav Ahuja - Last Filed: 07/12/17 19:27> Orders not resulted at time of discharge: Pending orders 07/09/17 15:05 Culture,Blood [BC] Routine 07/10/17 10:47 Urine Protein Creat Ratio Halma [UCHEM] Routine 07/10/17 12:07 Culture,Blood,Additional [BC] Routine Date of Encounter: 07/12/17 - Discharge Diagnosis (1) Sepsis Priority: Primary Status: Resolved Qualifiers: Sepsis type: Escherichia coli Qualified Code(s): A41.51 - Sepsis due to Escherichia coli [E. coli] (2) Severe sepsis Status: Resolved (3) Hypertension Priority: Secondary Status: Chronic Qualifiers: Hypertension type: essential hypertension Qualified Code(s): I10 - Essential (primary) hypertension (4) Takotsubo cardiomyopathy Status: Suspected (5) Systolic heart failure Priority: Secondary Status: Chronic Qualifiers: Heart failure chronicity: chronic Qualified Code(s): I50.22 - Chronic systolic (congestive) heart failure (6) Diabetes mellitus Status: Chronic Qualifiers: Diabetes mellitus type: type 2 Diabetes mellitus residential insulin use: without residential use Diabetes mellitus complication status: with hyperglycemia Qualified Code(s): E11.65 - Type 2 diabetes mellitus with hyperglycemia Hospital course: Mr. Paulson is a 62 year old male - Time Spent with Patient Total time spent providing and/or coordinating discharge services: 38min Date of admission: 07/09/17 06:40 Primary care physician: Radha Newell Consults: 07/09/17 18:32 Consult to Cardiology [CONS] Routine Comment: Consulting Provider: Card[facility] Reason for Consult: SVT/?STEMI Call Completed: Yes 07/10/17 08:09 Consult to Infectious Diseases [CONS] Routine Consulting Provider: Infectious Disease [facility] Reason for Consult: Bacteremia Time Notified: 08:10 Call Completed: Yes - Constitutional Vitals: Temp Pulse Resp BP Pulse Ox 98.1 F 71 16 106/67 96 07/12/17 11:17 07/12/17 11:17 07/12/17 11:17 07/12/17 11:17 07/12/17 11:17 - Attending Attestation I examined this patient and my medical decision-making was reviewed with the Resident Physician on 07/12/17. I agree with the documented findings, disposition and treatment plan as described except to the extent set forth below. Mr Paulson has been admitted for e coli bacteremia. He has systolic heart failure as well. He is now afebrile with stable vitals. He is ready to go home with PO abx. Exam Alert Comfortable Mucus membranes dry Heart reg No wheeze abd soft Plan D/C home today
[2017-07-12 11:20] VITALS: BP 106/67
--- NOTE | 2017-07-12 15:39 | Electrocardiograph Report ---
[address] [place] [address] Test Date: 2017-07-09 Pat Name: Idris Paulson Department: 114 Room: 2A25 Gender: M Bilingual Operator: : 1955 Requested By: Trav Ahuja Order Number: [id number] Reading MD: Rc Huber DO Measurements Intervals [place] Rate: 176 P: CA: 0 QRS: -55 QRSD: 117 T: 90 QT: 277 QTc: 371 Interpretive Statements SUPRAVENTRICULAR TACHYCARDIA POSSIBLE ANTERIOR MYOCARDIAL INFARCTION, AGE UNDETERMINED BASELINE ARTIFACT COMPLICATES INTERPRETATION CONSIDER REPEAT STUDY Electronically Signed On 07-12-2017 15:37:57 EST by Rc Huber DO
== END 2017-07-12 16:20 | disposition home or self-care (01) | DRG 872 ==
LOC: EMEROO 20:52 → ICNU 20:52 → SUATTDRO 07-09 06:40 → 3NENU 07-09 10:29 → 2ANU 07-09 20:06
PROVIDERS: ADMIT Internal Medicine; ATTEND Internal Medicine

== ENCOUNTER 2019-03-12 11:18 | Inpatient (IN) ==
[~2019-03-12 11:18] MED LIST: Vancomycin 1,000 MG, Sodium Chloride IRRigation 1,000 ML IR ONE
[2019-03-12] MEDS ORDERED: CeFAZolin Syr 2,000MG/20 ML 2,000 MG/20 ML SYRINGE IVPB ONE (11:47)
[2019-03-12] MEDS ORDERED: *HR* Propofol 200 MG/20 ML VIAL IVP ONE (11:58)
[2019-03-12] MEDS ORDERED: *HR* FentaNYL (PF) 100 MCG/2 ML VIAL ONE (11:59)
[2019-03-12] MEDS ORDERED: Ringers Solution, Lactated 1,000 ML IVC SCH (12:00)
[2019-03-12] MEDS ORDERED: Lidocaine -MPF 2% 2 ML VIAL ONE ×2 (12:00→16:02)
[2019-03-12] MEDS ORDERED: Ondansetron 4 MG/2 ML VIAL ONE (12:04)
[2019-03-12] MEDS ORDERED: *HR* Rocuronium Bromide 50 MG/5 ML VIAL ONE (12:04)
[2019-03-12] MEDS ORDERED: Dexamethasone 4 MG/ML VIAL ONE (12:04)
[2019-03-12] MEDS ORDERED: Bupivacaine-MPF 0.25% 10 ML VIAL ONE (12:52)
[2019-03-12] MEDS ORDERED: Protamine Sulfate 50 MG/5 ML VIAL IVP ONE (12:52)
[2019-03-12] MEDS ORDERED: Heparin 1,000 UNITS/500 mL 500 ML ONE ×2 (12:53→13:44)
[2019-03-12] MEDS ORDERED: *HR* OxyCODONE Immed Rel 5 MG TABLET PO PRN ×2 (13:03→17:27)
[2019-03-12] MEDS ORDERED: *HR* Promethazine 25 MG/ML VIAL IVP PRN (13:03)
[2019-03-12] MEDS ORDERED: *HR* Labetalol 20 MG/4 ML SYRINGE IVP PRN ×2 (13:03→17:27)
[2019-03-12] MEDS ORDERED: *HR* FentaNYL (PF) 100 MCG/2 ML VIAL IVP PRN (13:03)
[2019-03-12] MEDS ORDERED: Ondansetron 4 MG/2 ML VIAL IVP ONE (13:03)
[2019-03-12] MEDS ORDERED: Albuterol 2.5 MG/3 ML NEBULIZER IH PRN (13:03)
[2019-03-12] MEDS ORDERED: Lidocaine HCL 4 ML Topical Solution (Laryng-O-Jet Kit Sterile Pak) TP ONE (13:11)
[2019-03-12] MEDS ORDERED: *HR* Remifentanil 1 MG VIAL IVP ONE (13:14)
[2019-03-12] MEDS ORDERED: Acetaminophen IV 1,000 MG/100 ML INFUS..BTL ONE (13:40)
[2019-03-12] MEDS ORDERED: NiCARdipine 2.5 MG/10 ML Syringe IVPB ONE (14:09)
[2019-03-12] MEDS ORDERED: EPHEDrine 50 MG/ML VIAL ONE (14:19)
[2019-03-12] MEDS ORDERED: *HR* Heparin 5,000 UNIT/ML VIAL ONE ×2 (14:49→15:21)
[2019-03-12] MEDS ORDERED: Neostigmine Methylsulfate 3 MG/3 ML SYRINGE ONE (16:00)
[2019-03-12] MEDS ORDERED: Acetaminophen 325 MG TABLET PO PRN (17:27)
[2019-03-12] MEDS ORDERED: *HR* HYDROcodone/Acet 5/325 mg TABLET PO PRN (17:27)
[2019-03-12] MEDS ORDERED: Ondansetron 4 MG/2 ML VIAL IVP PRN (17:27)
[2019-03-12] MEDS ORDERED: D5% in Water 1,000 ML IVC PRN (17:27)
[2019-03-12] MEDS ORDERED: Naloxone 0.4 MG/ML INJ IVP PRN (17:27)
[2019-03-12] MEDS ORDERED: 0.9 % Sodium Chloride 500 ML IVC SCH (17:27)
[2019-03-12] MEDS ORDERED: Dextrose Gel 15 GM/37.5 ML TUBE PO PRN ×2 (17:27)
[2019-03-12] MEDS ORDERED: *HR* Dextrose 50 % in Water (Syg) 50 ML SYRINGE IVP PRN (17:27)
[2019-03-12] MEDS: Insulin LISPRO 300 UNITS/3 ML VIAL SQ SCH (19:19)
[2019-03-12] MEDS: *HR* Metoprolol 5 MG/5 ML VIAL IVP SCH (19:24)
[2019-03-12 20:29] LABS: Basophils % 0.3 %; Eosinophils # 0.1 K/mcL (0.0-0.6); Eosinophils % 0.4 %; Hematocrit 40.4 % (37.5-50.1); Hemoglobin 14.8 g/dL (12.9-16.9); Immature Granulocytes % 0.4 % (0-4); Immature Platelets 2.6 % (1.1-6.1); Lymphocytes # 1.5 K/mcL (0.6-4.6); Lymphocytes % 10.4 %; Mean Corpuscular HGB Conc 36.6 g/dL (31.6-35.5); Mean Corpuscular Hemoglobin 31.6 pg (28.0-33.3); Mean Corpuscular Volume 86.1 fL (83.0-100.0); Monocytes # 0.4 K/mcL (0.0-1.3); Monocytes % 2.5 %; Neutrophils # 12.1 K/mcL (1.6-8.9); Platelet Count 185 K/mcL (140-400); Red Blood Count 4.69 M/mcL (4.19-5.50); Red Cell Distribution Width 13.1 % (11.5-14.5); White Blood Count 14.1 K/mcL (4.3-11.1)
[2019-03-12] MEDS ORDERED: Insulin LISPRO 300 UNITS/3 ML VIAL SQ SCH (21:00)
[2019-03-13] MEDS: *HR* Metoprolol 5 MG/5 ML VIAL IVP SCH ×2 (00:39→05:37)
[2019-03-13] MEDS ORDERED: *HR* Heparin 5,000 UNIT/ML VIAL SQ SCH ×2 (06:00)
[2019-03-13 07:27] VITALS: BP 162/92
[2019-03-13] MEDS: Insulin LISPRO 300 UNITS/3 ML VIAL SQ SCH (08:36)
[2019-03-13] MEDS ORDERED: Aspirin Enteric Coated 81 MG Tablet PO SCH (09:00)
== END 2019-03-13 10:08 | disposition home or self-care (01) | DRG 37 ==
LOC: SAMDAY 11:18 → 2NNU 18:01
PROVIDERS: ADMIT Surgery; ATTEND Surgery

== ENCOUNTER 2019-05-21 09:49 | Inpatient (IN) ==
[2019-05-21] MEDS ORDERED: *HR* Promethazine 25 MG/ML VIAL IVP PRN (10:09)
[2019-05-21] MEDS ORDERED: Gabapentin 300 MG CAPSULE PO ONE (10:09)
[2019-05-21] MEDS ORDERED: *HR* HYDROmorphone (PF) 1 MG/ML SYRINGE IVP PRN (10:09)
[2019-05-21] MEDS ORDERED: *HR* OxyCODONE Immed Rel 5 MG TABLET PO PRN ×2 (10:09→17:43)
[2019-05-21] MEDS ORDERED: Ondansetron 4 MG/2 ML VIAL IVP PRN ×2 (10:09→17:43)
[2019-05-21] MEDS ORDERED: *HR* Labetalol 20 MG/4 ML SYRINGE IVP PRN ×2 (10:09→17:43)
[2019-05-21] MEDS ORDERED: Clindamycin 900 MG/50 ML 900 MG/50 ML IV.SOLN IVPB ONE (10:23)
[2019-05-21] MEDS ORDERED: Ringers Solution, Lactated 1,000 ML IVC SCH (10:30)
[2019-05-21] MEDS ORDERED: Gabapentin 100 MG CAPSULE PO ONE (10:43)
[2019-05-21] MEDS ORDERED: *HR* Propofol 200 MG/20 ML VIAL IVP ONE (10:59)
[2019-05-21] MEDS ORDERED: *HR* Rocuronium Bromide 50 MG/5 ML VIAL ONE ×2 (11:00→14:13)
[2019-05-21] MEDS ORDERED: Ondansetron 4 MG/2 ML VIAL ONE ×2 (11:00→15:22)
[2019-05-21] MEDS ORDERED: Dexamethasone 4 MG/ML VIAL ONE (11:00)
[2019-05-21] MEDS ORDERED: Lidocaine -MPF 2% 2 ML VIAL ONE (11:00)
[2019-05-21] MEDS ORDERED: *HR* Etomidate 40 MG/20 ML VIAL IVP ONE (11:12)
[2019-05-21] MEDS ORDERED: *HR* FentaNYL (PF) 100 MCG/2 ML VIAL ONE ×2 (11:14→15:03)
[2019-05-21] MEDS ORDERED: *HR* Midazolam HCl 2 MG/2 ML VIAL ONE (11:14)
[2019-05-21] MEDS ORDERED: Vancomycin 1,000 MG, Sodium Chloride IRRigation 1,000 ML IR ONE (11:15)
[2019-05-21] MEDS ORDERED: Heparin 1,000 UNITS/500 mL 500 ML ONE (12:36)
[2019-05-21] MEDS ORDERED: Isovue-300 150 ML INFUS..BTL ONE (12:40)
[2019-05-21] MEDS ORDERED: Albumin Human 5% 25.0 GM/500 ML VIAL ONE ×2 (13:49→17:14)
[2019-05-21] MEDS ORDERED: Heparin 1,000 UNITS/500 mL 1,000 ML ONE (14:50)
[2019-05-21] MEDS ORDERED: *HR* Dextrose 50 % in Water (Syg) 50 ML SYRINGE IVP PRN (17:43)
[2019-05-21] MEDS ORDERED: *HR* HYDROcodone/Acet 5/325 mg TABLET PO PRN (17:43)
[2019-05-21] MEDS ORDERED: D5% in Water 1,000 ML IVC PRN (17:43)
[2019-05-21] MEDS ORDERED: Naloxone 0.4 MG/ML INJ IVP PRN (17:43)
[2019-05-21] MEDS ORDERED: Acetaminophen 325 MG TABLET PO PRN ×2 (17:43)
[2019-05-21] MEDS ORDERED: Dextrose Gel 15 GM/37.5 ML TUBE PO PRN ×2 (17:43)
[2019-05-21] MEDS: *HR* Metoprolol 5 MG/5 ML VIAL IVP SCH (20:24)
[2019-05-21] MEDS ORDERED: Insulin LISPRO 300 UNITS/3 ML VIAL SQ SCH (21:00)
[2019-05-22] MEDS: *HR* Metoprolol 5 MG/5 ML VIAL IVP SCH ×2 (00:25→05:37)
[2019-05-22 04:09] LABS: Basophils % 0.5 %; Eosinophils # 0.2 K/mcL (0.0-0.6); Eosinophils % 2.3 %; Hematocrit 35.4 % (37.5-50.1); Hemoglobin 12.3 g/dL (12.9-16.9); Immature Granulocytes % 0.1 % (0-4); Lymphocytes # 1.5 K/mcL (0.6-4.6); Lymphocytes % 17.2 %; Mean Corpuscular HGB Conc 34.7 g/dL (31.6-35.5); Mean Corpuscular Hemoglobin 30.7 pg (28.0-33.3); Mean Corpuscular Volume 88.3 fL (83.0-100.0); Mean Platelet Volume 9.6 fL (9.4-12.4); Monocytes # 0.7 K/mcL (0.0-1.3); Monocytes % 7.6 %; Neutrophils # 6.2 K/mcL (1.6-8.9); Platelet Count 169 K/mcL (140-400); Red Blood Count 4.01 M/mcL (4.19-5.50); Red Cell Distribution Width 12.8 % (11.5-14.5); Segmented Neutrophils % 72.3 %; White Blood Count 8.6 K/mcL (4.3-11.1)
[2019-05-22 04:16] LABS: BUN/Creatinine Ratio 17 (6-26); Blood Urea Nitrogen 11 mg/dL (8-23); Calcium 8.4 mg/dL (8.6-10.3); Carbon Dioxide 26 mEq/L (23-29); Chloride 104 mEq/L (98-107); Glucose 150 mg/dL (70-105); Osmolality,Calculated 288 (280-300); Potassium 3.5 mEq/L (3.5-5.1); Sodium 138 mEq/L (136-145); eGFR For African Americans > 60 (> 60); eGFR For Non-African Americans > 60 (> 60)
[2019-05-22] MEDS ORDERED: *HR* Heparin 5,000 UNIT/ML VIAL SQ SCH ×2 (06:00)
[2019-05-22] MEDS ORDERED: carvediloL 6.25 MG TABLET PO SCH (08:00)
[2019-05-22] MEDS: Insulin LISPRO 300 UNITS/3 ML VIAL SQ SCH ×2 (08:05→11:43)
[2019-05-22] MEDS ORDERED: Aspirin Enteric Coated 81 MG Tablet PO SCH (09:00)
[2019-05-22] MEDS ORDERED: ALOGLIPTIN BENZOATE 12.5 MG PO SCH (09:00)
[2019-05-22 11:38] VITALS: BP 137/80
== END 2019-05-22 13:55 | disposition home or self-care (01) | DRG 269 ==
LOC: SAMDAY 09:49 → 2NNU 17:36
PROVIDERS: ADMIT Surgery; ATTEND Surgery